=== PATIENT | female | born 1990 | race Caucasian/White ===

== ENCOUNTER 2017-12-26 12:19 | Emergency (ER) | payer MEDICAID, SELFPAY ==
[2017-12-26] VITALS (9 sets, daily range): BP systolic 96–129; BP diastolic 53–75; PULSE 60–99; RESP 12–18; TEMP 37.1; O2SAT 99–100; BMI 25.9
--- NOTE | 2017-12-26 12:44 | EKG12_ITS ---
Test Reason : MENTAL ILLNESS Blood Pressure : / mmHG Vent. Rate : 059 BPM Atrial Rate : 059 BPM P-R Int : 118 ms QRS Dur : 082 ms QT Int : 420 ms P-R-T Axes : 065 072 054 degrees QTc Int : 415 ms Sinus bradycardia with Premature atrial complexes Otherwise normal ECG Confirmed by GERA LAO, AALIYAH ([id number]), editor book TODD KENNEY ([id number]) on 12/28/2017 1:10:56 PM Referred By: SHAW Confirmed By:AALIYAH BOSS MD
--- NOTE | 2017-12-26 12:46 | ED.VISSUMM ---
- ER Visit Summary Date of Service: 12/26/17 Chief Complaint: Suicidal threats History of Present Illness: The patient is a 27 F who was brought in by the [facility] deputy for suicidal threats. The patient has a history of methamphetamine use. She denies any psychiatric history. Her last use was about 4 5 days ago. She has had increasing arguments with her family. Last night she told her boyfriend that she was going to slit her wrists. The [facility] deputy was notified today and pink slipped her. Physical Examination: Afebrile and vital signs unremarkable. Patient is mildly agitated and tearful. Heart regular. Lungs clear. Skin normal in color but she does have some linear abrasions to her bilateral forearms, worse on the left. These are very superficial. Test Results: EKG, labs, tox screen, alcohol, salicylates, and Tylenol levels pending. Emergency Department Course and Treatment: Patient had suicide precautions while awaiting results. Lab work is all fairly unremarkable. Patient did require 1 dose of Ativan by mouth for mild agitation and anxiety. Crisis was contacted. We are awaiting final disposition at the time of this dictation. Treatment Plan: As above Disposition: Transfer pending evaluation by crisis counselor Impression: 1. Suicidal ideation This note was generated with [employer] dictation software. It may contain incorrect words, spelling, and punctuation that were not noted in review of the chart prior to signing ED Disposition - Plan for ED Patient: Chief Complaint: Suicidal Referrals: NOT,DEFINED [NON-STAFF] -
[2017-12-26] MEDS: LORazepam 1 MG Tablet PO (13:04)
[2017-12-26 13:18] LABS: Absolute Lymphocyte Count 2.09 X10^3/ul (0.83-4.51); Absolute Neutrophil Count 4.8 X10^3/uL (2.0-7.7); Basophil# 0.02 X10^3/uL; Basophil% 0.3 % (0-1); Eosinophil# 0.09 X10^3/uL; Eosinophils% 1.2 % (0-5); Hematocrit 40.9 % (37-47); Hemoglobin 14.4 g/dl (12.0-15.0); Lymphocyte # 2.09 X10^3/ul (4.0); Mean Corp Hgb Conc 35.2 g/gl (32-36); Mean Corpuscular Hgb 30.8 pg (27.0-32.0); Mean Corpuscular Volume 87.4 fL (81-99); Mean Platelet Vol. 9.5 fl (6.2-12.0); Monocyte# 0.42 X10^3/uL; Monocyte% 5.6 % (0-10); Neutrophil # 4.82 X10^3/uL (2.7-7.7); Neutrophil % 64.5 % (47-70); POSITIVE COUNT NO; POSITIVE DIFFERENTIAL NO; POSITIVE MORPHOLOGY NO; Platelet Count 369 K/mm3 (150-450); RBC Distribution Width CV 11.8 % (11.6-14.6); RBC Distribution Width SD 37.2 fl (35.1-43.9); Red Blood Count 4.68 M/mm3 (4.2-5.4); White Blood Count 7.5 K/mm3 (4.4-11.0)
[2017-12-26 13:31] LABS: Amphetamine Urine VISTA NEGATIVE (<1000 ng/mL); Barbiturate Urine VISTA NEGATIVE (< 200 ng/mL); Benzodiazepine Urine VISTA NEGATIVE (< 200 ng/mL); Cocaine Urine VISTA NEGATIVE (< 300 ng/mL); Ecstacy Urine VISTA NEGATIVE (< 500 ng/mL); Methadone Urine VISTA NEGATIVE (< 300 ng/mL); PCP Urine VISTA NEGATIVE (< 25 ng/mL); THC Urine VISTA NEGATIVE (< 50 ng/mL); Vista UDS pH Range 6
[2017-12-26 13:40] LABS: AST(SGOT) 18 U/L (15-37); Alanine Aminotransfer ALT/SGPT 17 U/L (13-56); Albumin, Serum 3.8 g/dL (3.2-5.0); Alkaline Phosphatase 67 U/L (45-117); Anion Gap 6 (5-15); BUN 7 mg/dL (7-18); BUN/Creat Ratio 11.5 RATIO (10-20); Calcium,Total 8.8 mg/dL (8.5-10.1); Chloride 107 mmol/L (98-107); Creatinine, Serum 0.61 mg/dL (0.55-1.02); EST Glomerular Filtration Rate 127 mL/min (>60); Est Glom Filt Rate - Afr Amer 154 mL/min (>60); Estimated Creatinine Clearance 126.86 ml/min; Globulin 3.7 g/dL (2.2-4.2); Glucose 85 mg/dL (74-106); Potassium 3.8 mmol/L (3.5-5.1); Protein, Total 7.5 g/dL (6.4-8.2); Sodium Level 143 mmol/L (136-145)
[2017-12-26 14:31] LABS: Alcohol, Blood (Medical)-Serum < 3.0 mg/dL
[2017-12-26 15:06] LABS: Mucous, Urine 0 SEEN /hpf (<or=2+); Red Blood Cells-Urine 0 SEEN /hpf (0-5); White Blood Cells 0 SEEN /hpf (0-5)
[2017-12-26 15:08] LABS: Color, Urine Yellow (Yellow); Glucose, Dipstick Normal (Normal); Ketone-Dipstick Negative (Negative); Leukocyte Esterase-Dipstick Negative /ul (Negative); Nitrite-Dipstick Negative (Negative); Occult Blood-Urine Negative /ul (Negative); Protein-Dipstick 15 mg/dl (Negative); Urine Bilirubin Dipstick Negative (Negative); Urine Clarity Clear (Clear); Urine Urobilinogen Normal (Normal)
[2017-12-26 15:11] LABS: Internal QC Validated? YES +Cl - CLEAR BKGD; Pregnancy, Urine Negative Negative
[2017-12-26 15:14] LABS: Bacteria RARE /hpf (None Seen); Squamous Epithelial Cells - UA 0-5 SEEN /hpf (5-10)
[2017-12-26 15:40] LABS: Acetaminophen (Tylenol) Level < 3.0 ug/mL (10.0-30.0); Salicylate 2.9 mg/dL (2.8-20.0)
--- NOTE | 2017-12-26 17:39 | ED.RN ---
TUAN FERRO ON THE WAIT LIST FOR [facility]
[2017-12-26] MEDS: hydrOXYzine PAM 25 MG Capsule PO (18:15)
--- NOTE | 2017-12-26 19:22 | ED.RN ---
pt evaluated by [facility] crisis counselor. pt is pink slipped to [facility] and is awaiting an accepting drCedric and on waiting list for and available bed. pt aware.
--- NOTE | 2017-12-26 19:24 | ED.RN ---
pt reports having anxiety that her family is unable to come and visit. significant other and family informed that pt can have visitors. this rn sat and talked with pt. tissues given as pt is tearful. pt accepts anxiety medication. snack and beverage given.
[2017-12-27] VITALS (11 sets, daily range): BP systolic 96–138; BP diastolic 56–77; PULSE 61–74; RESP 14–18; TEMP 36.8; O2SAT 96–100
[2017-12-27] MEDS: Zolpidem Tartrate 5 MG Tablet PO (02:01)
--- NOTE | 2017-12-27 09:10 | NURSING ---
CALLED [facility]IS[facility], WAITING ON A BED.
--- NOTE | 2017-12-27 09:50 | NURSING ---
[place] [id number] UN[address] REPORT [phone] PETRA RIVAS
--- NOTE | 2017-12-27 10:12 | NURSING ---
CALLED [facility], ETA 1 HR
== END 2017-12-27 11:24 ==
PROVIDERS: Emergency Provider Emergency Medicine
DX: R45.851 Suicidal ideations (principal); R45.1 Restlessness and agitation; F41.9 Anxiety disorder, unspecified; S50.812A Abrasion of left forearm, initial encounter; S50.811A Abrasion of right forearm, initial encounter; X58.XXXA Exposure to other specified factors, initial encounter; Y93.9 Activity, unspecified; Y92.9 Unspecified place or not applicable; F15.90 Other stimulant use, unspecified, uncomplicated; F17.210 Nicotine dependence, cigarettes, uncomplicated
CPT/HCPCS: 80053; 80307; 80320; 80329; 81001; 81025; 85025; 93005; 99284; G0480

== ENCOUNTER 2018-01-20 15:01 | Emergency (ER) | payer MEDICAID, SELFPAY ==
[2018-01-20 15:02] VITALS: BP 118/67; PULSE 101; RESP 16; TEMP 36.7; O2SAT 98; BMI 26.6
[2018-01-20 15:37] LABS: Absolute Neutrophil Count 6.9 X10^3/uL (2.0-7.7); Basophil# 0.03 X10^3/uL; Basophil% 0.3 % (0-1); Eosinophil# 0.13 X10^3/uL; Eosinophils% 1.3 % (0-5); Hematocrit 47.2 % (37-47); Hemoglobin 16.2 g/dl (12.0-15.0); Lymphocyte % 26.1 % (19-41); Mean Corp Hgb Conc 34.3 g/gl (32-36); Mean Corpuscular Hgb 30.6 pg (27.0-32.0); Mean Corpuscular Volume 89.2 fL (81-99); Mean Platelet Vol. 9.7 fl (6.2-12.0); Monocyte# 0.56 X10^3/uL; Monocyte% 5.4 % (0-10); Neutrophil # 6.92 X10^3/uL (2.7-7.7); Neutrophil % 66.7 % (47-70); Platelet Count 334 K/mm3 (150-450); RBC Distribution Width CV 12.4 % (11.6-14.6); RBC Distribution Width SD 40.8 fl (35.1-43.9); Red Blood Count 5.29 M/mm3 (4.2-5.4); White Blood Count 10.4 K/mm3 (4.4-11.0)
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
[2018-01-20 15:40] LABS: POSITIVE COUNT NO; POSITIVE DIFFERENTIAL NO; POSITIVE MORPHOLOGY NO
[2018-01-20 15:50] LABS: ALB/GLOB Ratio 1.2 RATIO (0.9-2.4); AST(SGOT) 12 U/L (15-37); Alanine Aminotransfer ALT/SGPT 14 U/L (13-56); Albumin, Serum 4.4 g/dL (3.2-5.0); Alkaline Phosphatase 77 U/L (45-117); Anion Gap 4 (5-15); BUN 16 mg/dL (7-18); BUN/Creat Ratio 20.9 RATIO (10-20); Calcium,Total 9.1 mg/dL (8.5-10.1); Chloride 105 mmol/L (98-107); Creatinine, Serum 0.76 mg/dL (0.55-1.02); EST Glomerular Filtration Rate 98 mL/min (>60); Est Glom Filt Rate - Afr Amer 118 mL/min (>60); Estimated Creatinine Clearance 101.82 ml/min; Globulin 3.6 g/dL (2.2-4.2); Glucose 51 mg/dL (74-106); Potassium 4.1 mmol/L (3.5-5.1); Sodium Level 140 mmol/L (136-145)
[2018-01-20 15:56] LABS: Alcohol, Blood (Medical)-Serum < 3.0 mg/dL
[2018-01-20 15:58] LABS: Amphetamine Urine VISTA POSITIVE (<1000 ng/mL); Barbiturate Urine VISTA NEGATIVE (< 200 ng/mL); Benzodiazepine Urine VISTA NEGATIVE (< 200 ng/mL); Cocaine Urine VISTA NEGATIVE (< 300 ng/mL); Ecstacy Urine VISTA NEGATIVE (< 500 ng/mL); Methadone Urine VISTA NEGATIVE (< 300 ng/mL); PCP Urine VISTA NEGATIVE (< 25 ng/mL); THC Urine VISTA NEGATIVE (< 50 ng/mL); Vista UDS pH Range 5
[2018-01-20 16:22] LABS: Pregnancy, Serum, hCG Quali. NEGATIVE Negative (0-9 Nonpreg)
[2018-01-20 16:45] VITALS: BP 106/63; PULSE 83; RESP 16; O2SAT 97
--- NOTE | 2018-01-20 16:51 | ED.DEP ---
ED Disposition - Plan for ED Patient: Disposition: Home or Assisted Living Chief Complaint: Mental Health Instructions: ED Drug Abuse General Referrals: Counseling,Center [GROUP OF PHYSICIANS] - Additional Instructions: Follow-up with counseling center. Strongly consider getting drug counseling.
[2018-01-20] MEDS: LORazepam 1 MG Tablet PO (17:08)
[2018-01-20 17:09] VITALS: PULSE 89; RESP 15; O2SAT 96
[2018-01-20 23:07] VITALS: BP 114/83; PULSE 78; O2SAT 99
[2018-01-21] VITALS: RESP 16
[2018-01-21 01:32] VITALS: BP 114/82; PULSE 92; RESP 18; O2SAT 99
== END 2018-01-21 04:37 | disposition home or self-care (01) ==
PROVIDERS: Emergency Provider Emergency Medicine
DX: R45.1 Restlessness and agitation (principal); Z87.898 Personal history of other specified conditions; F99 Mental disorder, not otherwise specified; F41.9 Anxiety disorder, unspecified; F15.90 Other stimulant use, unspecified, uncomplicated; Z79.899 Other long term (current) drug therapy; Z72.0 Tobacco use
CPT/HCPCS: 80053; 80307; 80320; 84703; 85025; 99284; G0480

== ENCOUNTER → 2020-12-06 12:07 | Outpatient (CLI) | payer MEDICAID, SELFPAY ==
[2020-12-05 17:36] VITALS: BMI 39.4
[2020-12-06 14:55] LABS: Absolute Lymphocyte Count 3.27 X10^3/uL (0.83-4.51); Absolute Neutrophil Count 5.2 X10^3/uL (2.0-7.7); Basophil# 0.03 X10^3/uL; Basophil% 0.3 % (0-1); Eosinophil# 0.24 X10^3/uL; Eosinophils% 2.6 % (0-5); Hematocrit 44.7 % (37-47); Hemoglobin 14.2 g/dL (12.0-15.0); Lymphocyte # 3.27 X10^3/ul (4.0); Lymphocyte % 35.5 % (19-41); Mean Corp Hgb Conc 31.8 g/dL (32-36); Mean Corpuscular Volume 91.2 fL (81-99); Mean Platelet Vol. 10.5 fl (6.2-12.0); Monocyte# 0.47 X10^3/uL; Monocyte% 5.1 % (0-10); NRBC Flagged by Analyzer 0 % (0-5); Neutrophil # 5.17 X10^3/uL (2.7-7.7); Neutrophil % 56.3 % (47-70); Platelet Count 416 K/mm3 (150-450); RBC Distribution Width CV 11.9 % (11.6-14.6); RBC Distribution Width SD 39.8 fl (35.1-43.9); White Blood Count 9.2 K/mm3 (4.4-11.0)
[2020-12-06 15:00] LABS: Internal QC Validated? YES +Cl - CLEAR BKGD; Pregnancy, Serum, hCG Quali. NEGATIVE Negative
[2020-12-06 15:24] LABS: AST(SGOT) 19 U/L (15-37); Alanine Aminotransfer ALT/SGPT 22 U/L (13-56); Albumin, Serum 3.9 g/dL (3.2-5.0); Alkaline Phosphatase 90 U/L (45-117); Anion Gap 6 (5-15); BUN 11 mg/dL (7-18); BUN/Creat Ratio 13.4 RATIO (10-20); Calcium,Total 9.1 mg/dL (8.5-10.1); Chloride 104 mmol/L (98-107); Creatinine, Serum 0.82 mg/dL (0.55-1.02); EST Glomerular Filtration Rate 88 mL/min (>60); Est Glom Filt Rate - Afr Amer 107 mL/min (>60); Globulin 3.8 g/dL (2.2-4.2); Glucose 85 mg/dL (74-106); Potassium 4.4 mmol/L (3.5-5.1); Protein, Total 7.7 g/dL (6.4-8.2); Sodium Level 140 mmol/L (136-145); T4 Free Direct 1.01 ng/dL (0.76-1.46); Thyroid Stim Hormone (TSH) 2.04 uIU/mL (0.358-3.74)
[2020-12-06 16:02] LABS: HIV - WCH Non-Reactive (Nonreactive); Hepatitis B Surface Antigen Non-Reactive (Nonreactive)
[2020-12-06 16:08] LABS: Hepatitis C Antibody Preliminary Reactive (Nonreactive)
[2020-12-06 18:34] LABS: Chlamydia Trachomatis by PCR Negative (Negative); Neisserai gonorrhoeae by PCR Negative (Negative); Probe Check PASS; Sample Adequacy Control PASS; Specimen Processing Control PASS
== END ==
PROVIDERS: PCP Internal Medicine; Referring Provider Internal Medicine; Visit Provider Internal Medicine
DX: B19.20 Unspecified viral hepatitis C without hepatic coma (principal); Z11.3 Encounter for screening for infections with a predominantly sexual mode of transmission; Z13.29 Encounter for screening for other suspected endocrine disorder; N93.9 Abnormal uterine and vaginal bleeding, unspecified
CPT/HCPCS: 36415; 80053; 84439; 84443; 84703; 85025; 86703; 86803; 87340; 87491; 87521; 87591

== ENCOUNTER 2022-01-29 10:37 | Emergency (ER) | payer MEDICAID, SELFPAY ==
[2022-01-29 10:39] VITALS: BP 105/60; PULSE 64; RESP 18; TEMP 36.4; O2SAT 99; BMI 29.2
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
[2022-01-29] MEDS: Azithromycin 250 MG Tablet 2000 MG PO (12:02)
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
--- NOTE | 2022-01-29 12:32 | ED.RN ---
PT AWARE SHE HAS BEEN REFERRED TO [facility] FOR A SANE EXAM.
[2022-01-29 13:57] LABS: Chlamydia Trachomatis by PCR POSITIVE (Negative); Neisserai gonorrhoeae by PCR Positive (Negative); Probe Check PASS
== END 2022-01-29 12:34 | disposition home or self-care (01) ==
LOC: ED 11:31
PROVIDERS: Emergency Provider Emergency Medicine; Visit Provider Emergency Medicine
DX: N89.8 Other specified noninflammatory disorders of vagina (principal); F19.10 Other psychoactive substance abuse, uncomplicated; Z11.3 Encounter for screening for infections with a predominantly sexual mode of transmission; B19.20 Unspecified viral hepatitis C without hepatic coma; M54.50 Low back pain, unspecified; T76.21XA Adult sexual abuse, suspected, initial encounter; F17.210 Nicotine dependence, cigarettes, uncomplicated
CPT/HCPCS: 87491; 87591; 99283

== ENCOUNTER 2022-12-23 10:03 | Emergency (ER) | payer MEDICAID, SELFPAY ==
[2022-12-23 10:04] VITALS: BP 134/96; PULSE 87; RESP 14; TEMP 36.1; O2SAT 96; BMI 39.7
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
[2022-12-23 11:16] LABS: Absolute Lymphocyte Count 2.54 X10^3/uL (0.83-4.51); Absolute Neutrophil Count 3.8 X10^3/uL (2.0-7.7); Basophil# 0.03 X10^3/uL; Basophil% 0.4 % (0-1); Eosinophil# 0.21 X10^3/uL; Eosinophils% 2.8 % (0-5); Hematocrit 34.1 % (37-47); Hemoglobin 12.1 g/dL (12.0-15.0); Lymphocyte # 2.54 X10^3/ul (0.83-4.51); Lymphocyte % 33.6 % (19-41); Mean Corp Hgb Conc 35.5 g/dL (32-36); Mean Corpuscular Hgb 31.5 pg (27.0-32.0); Mean Corpuscular Volume 88.8 fL (81-99); Mean Platelet Vol. 9.8 fl (6.2-12.0); Monocyte# 0.93 X10^3/uL; Monocyte% 12.3 % (0-10); NRBC Flagged by Analyzer 0 % (0-5); Neutrophil # 3.82 X10^3/uL (2.7-7.7); Neutrophil % 50.6 % (47-70); Platelet Count 350 K/mm3 (150-450); RBC Distribution Width CV 11.7 % (11.6-14.6); RBC Distribution Width SD 37.2 fl (35.1-43.9); Red Blood Count 3.84 M/mm3 (4.2-5.4); White Blood Count 7.6 K/mm3 (4.4-11.0)
[2022-12-23 11:34] LABS: Internal QC Validated? YES +Cl - CLEAR BKGD; Pregnancy, Serum, hCG Quali. NEGATIVE Negative
[2022-12-23 11:42] LABS: Alcohol, Blood (Medical)-Serum < 3.0 mg/dL
--- NOTE | 2022-12-23 11:52 | CM.ED ---
Addendum entered by Ernestine Benson 12/23/22 17:08: JEFERSON met with patient, [facility] Experimental Physicist, Josephine, and SANE nurse Hillary. Patient was awake briefly but has been in and out of sleep. Josephine updated SW that the patient has been accepted to [facility] and will have assistance by their staff to be connected to other resources for mental health and AOD as needed. Patient continues to not want police involvement. No concerns voiced by Josephine contemporary or modern dancer regarding suicide or homicide or patient's general behavior. JEFERSON updated MD Kern of plan for discharge to [facility]. MD in agreement with plan, mental health evaluation not needed at this time. Ernestine Benson GRINDER SETUP OPERATOR, MEMBER SERVICES REPRESENTATIVE Original Note: Social Work Note Referral Source: MD Kern Referral reason: concerns with AOD/MH MD Kern met with SW and reviewed current symptoms and concerns explaining the patient is homeless, using substances and acting bizarre. reports patient is repetitive and has staff from [facility] present, however, they did not disclose anything and continued to encourage the patient to talk to the MD about her concerns. SW to follow up. SW met with patient and patient's guest. CARAMEL CANDY MAKER HELPER at bedside with patient and one of patient's guests assisting the patient with deep breathing. Patient's guests are recovery coaches with Palomo, Anny and Alireza. SW met with Anny (Alireza assisting with breathing exercises) and inquired about recent events. Anny reports having an DELIA signed from the patient to talk with hospital staff. Anny explained the patient came to [facility] for breakfast as she is currently homeless. When patient arrived, she disclosed to Anny she was concerned about track betancourt on her body, explaining she wasn't shooting she was using subs. Patient had also disclosed some concerns regarding bruises on her ankles and inner thighs and was questioning what could have happened to her. Patient states she is unable to remember majority of the events that occurred within the last two weeks. 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 SW then spoke with patient to inquire about her desire to have a SANE nurse evaluation, patient states yes. SW inquired about patient's interest in talking with police, patient declined. Patient was very restless and kept her eyes closed during interaction with SW and reports not wanting to talk about anything else at this time. [facility] Josephine, arrived and at patient's bed side as well. SW updated manager restaurant Alyssa and MD Kern patient is requesting SANE nurse but declined police involvement. Plan: DAYSI Bryant contacting SANE nurses to determine who is available to complete exam. Ernestine Benson GRINDER SETUP OPERATOR, JEN
[2022-12-23 11:58] LABS: Red Blood Cells-Urine 0 SEEN /hpf (0-5)
[2022-12-23 11:59] LABS: Color, Urine Yellow (Yellow); Glucose, Dipstick Normal (Normal); Ketone-Dipstick 50 mg/dl (Negative); Leukocyte Esterase-Dipstick 25 /ul (Negative); Nitrite-Dipstick Positive (Negative); Occult Blood-Urine 50 /ul (Negative); Protein-Dipstick 30 mg/dl (Negative); Urine Bilirubin Dipstick 1 mg/dL (Negative); Urine Clarity Sl. Cloudy (Clear); Urine Urobilinogen 4 mg/dl (Normal)
[2022-12-23 12:05] LABS: Bacteria 1+ /hpf (None Seen); Mucous, Urine 1+ /hpf (<or=2+); Squamous Epithelial Cells - UA 0-5 SEEN /hpf (5-10); White Blood Cells 0-5 SEEN /hpf (0-5)
[2022-12-23 12:20] LABS: Amphetamine Urine VISTA POSITIVE (<1000 ng/mL); Barbiturate Urine VISTA NEGATIVE (< 200 ng/mL); Benzodiazepine Urine VISTA NEGATIVE (< 200 ng/mL); Cocaine Urine VISTA NEGATIVE (< 300 ng/mL); Ecstacy Urine VISTA POSITIVE (< 500 ng/mL); Methadone Urine VISTA NEGATIVE (< 300 ng/mL); PCP Urine VISTA NEGATIVE (< 25 ng/mL); THC Urine VISTA NEGATIVE (< 50 ng/mL); Vista UDS pH Range 6
== END 2022-12-23 21:02 | disposition home or self-care (01) ==
PROVIDERS: Emergency Provider Student in an Organized Health Care Education/Training Program; Visit Provider Student in an Organized Health Care Education/Training Program
DX: F20.9 Schizophrenia, unspecified (principal); F15.10 Other stimulant abuse, uncomplicated; F16.10 Hallucinogen abuse, uncomplicated; B18.2 Chronic viral hepatitis C; Z59.00 Homelessness unspecified; N30.90 Cystitis, unspecified without hematuria; F17.210 Nicotine dependence, cigarettes, uncomplicated; T76.21XA Adult sexual abuse, suspected, initial encounter; T76.11XA Adult physical abuse, suspected, initial encounter
CPT/HCPCS: 80307; 81001; 82077; 84703; 85025; 87428; 99283

== ENCOUNTER 2023-09-07 15:41 | Emergency (ER) | payer MEDICAID, SELFPAY ==
[2023-09-07 15:42] VITALS: BP 130/77; PULSE 73; RESP 14; TEMP 36.1; O2SAT 100; BMI 40.2
--- NOTE | 2023-09-07 16:01 | CT_ITS ---
EXAM: CT ABDOMEN AND PELVIS WITH INTRAVENOUS CONTRAST CLINICAL INDICATION: Abdominal pain TECHNIQUE: Helically acquired images were obtained of the abdomen and pelvis with intravenous contrast. This CT exam was performed using one or more of the following dose reduction techniques: automated exposure control, adjustment of the mA and/or kV according to patient size, and/or use of iterative reconstruction technique. CONTRAST: IV 100mL Isovue-370 COMPARISON: No relevant prior studies available. FINDINGS: LOWER THORAX: Unremarkable. Lung bases are clear. No cardiomegaly. No significant pericardial effusion. ABDOMEN: LIVER: Unremarkable. Homogeneous. No focal mass. GALLBLADDER AND BILE DUCTS: Unremarkable. No calcified gallstones. No gallbladder distention or wall edema. No intra- or extrahepatic biliary ductal dilation. PANCREAS: Unremarkable. No focal cystic or solid mass. SPLEEN: Unremarkable. Normal size without focal cystic or solid mass. ADRENALS: Unremarkable. No nodules. KIDNEYS AND URETERS: Unremarkable. Normal renal size and position. No hydronephrosis. STOMACH AND BOWEL: Unremarkable. No stomach or bowel distention. No focal inflammatory change. PELVIS: APPENDIX: No evidence of acute appendicitis. BLADDER: Unremarkable. REPRODUCTIVE: Fluid density mass in the right pelvis that measures 7.1 x 5.8 x 7.4 cm likely represents an ovarian cyst. ABDOMEN and PELVIS: INTRAPERITONEAL SPACE: Unremarkable. No ascites or other fluid collection. No free air. BONES/JOINTS: Unremarkable. No suspicious lytic or blastic abnormality. SOFT TISSUES: Unremarkable. No discrete abdominal or pelvic wall hernia. VASCULATURE: Unremarkable. Abdominal aorta is non-dilated. LYMPH NODES: Unremarkable. No enlarged lymph nodes. CT/Abdomen/Pelvis W IV Cont ONLY IMPRESSION: Fluid density mass in the right hemipelvis which may represent a right ovarian cyst. If indicated further evaluation with ultrasound may be beneficial. No other acute abnormalities are identified. Electronically Signed: Damon Arcos MD at 17:29 EST ,
--- NOTE | 2023-09-07 16:09 | EX.ED.DYSGE1 ---
HPI <FARHAN Ramirez - Last Filed: 09/07/23 18:38> History of Present Illness Chief Complaint: Abd Pain Narrative Narrative: Patient presenting today due to worsening cramping and intermittent abdominal pain across her lower abdomen that she has had since Wednesday. She reports that she has had some nausea without any vomiting. She reports that she had loose stool this morning but otherwise no diarrhea. She denies any fever, chills, urinary symptoms, melena, and hematochezia. Previous abdominal surgeries include 3 prior C-sections. She denies a PMH of any chronic health conditions. PFSH <FARHAN Ramirez - Last Filed: 09/07/23 18:38> PFSH Medical History Drug abuse Headache, migraine Hepatitis C Home Medications buprenorphine 8.6 mg-naloxone 2.1 mg sublingual tablet (Zubsolv) 1 tab sublingual DAILY 12/05/20 [History Last Taken Unknown] omeprazole 40 mg capsule,delayed release 40 mg PO DAILY #90 caps 12/05/20 [Rx Last Taken Unknown] sulfamethoxazole 800 mg-trimethoprim 160 mg tablet (Bactrim DS) 1 tab PO DAILY #10 tabs 12/23/22 [Rx Last Taken Unknown] escitalopram oxalate 20 mg tablet 20 mg PO QHS 09/07/23 [History Last Taken Unknown] naltrexone microspheres 380 mg intramuscular suspension,extended release (Vivitrol) 380 mg IM Q28D 09/07/23 [History Last Taken Unknown] prazosin 1 mg capsule 1 mg PO QHS 09/07/23 [History Last Taken Unknown] trazodone 100 mg tablet 100 mg PO QHS PRN sleep 09/07/23 [History Last Taken Unknown] Allergy/AdvReac Type Severity Reaction Status Date / Time cephalexin [From Keflex] Allergy Hives Verified 09/07/23 15:42 loratadine [From Claritin] Allergy Unknown Verified 09/07/23 15:42 Family History Other Alcoholism Anxiety Arthritis CVA (cerebral vascular accident) Cervical cancer Diabetes Heart disease High cholesterol Hypertension Kidney disease Myocardial infarction Osteoporosis Ovarian cancer Suicide attempt blood clots Surgical History History of History of tonsillectomy Social History Smoking Status: Heavy Smoker (>10/day) alcohol intake: never substance use type: former substance user what type of physical activity do you participate in: none ROS <FARHAN Ramirez - Last Filed: 09/07/23 18:38> ROS ED Constitutional Constitutional ED: Denies chills or fever(s) Cardiovascular Cardiovascular: Denies chest pain Respiratory/Chest Respiratory/Chest: Denies cough or dyspnea Gastrointestinal Gastrointestinal: Reports abdominal pain and nausea; Denies constipation, diarrhea, melena or vomiting Genitourinary Genitourinary ED: Denies dysuria, hematuria or urinary urgency Musculoskeletal Musculoskeletal: Denies arthralgias or myalgias Integumentary Denies rash Neurologic Neurologic: Denies weakness EXAM <FARHAN Ramirez - Last Filed: 09/07/23 18:38> Physical Exam Const Vital Signs: 09/07/23 15:42 09/07/23 17:41 Temperature 96.9 F L Temperature Source Temporal Pulse Rate 73 65 Respiratory Rate 14 16 Blood Pressure 130/77 H Blood Pressure Mean 94 Pulse Ox 100 Oxygen Delivery Method Room Air Room Air Positive well nourished, well developed and no apparent distress General Appearance ED: well developed HEENT Reports normocephalic and head/scalp atraumatic Mouth ED: Yes moist mucous membranes normal Eyes PERRL and EOMs intact bilaterally Neck full ROM and supple Chest Wall inspection of chest normal Resp normal respiratory effort and clear to auscultation bilaterally Cardio regular rate and regular rhythm GI soft to palpation, non-distended and no masses GI Narrative: pain to palpation across the lower abdomen without any rigidity, guarding, or peritoneal signs. Negative Almazan sign. Negative Rovsing sign. Back/Spine normal ROM and normal to inspection Extremity normal to inspection and full ROM Neuro oriented x3, CN's II-XII intact bilaterally, moves all extremities, no focal motor deficits and no sensory deficits noted Sensorium / Orientation: awake and alert Psych mental status grossly normal and thought process normal Skin no rashes or lesions noted and no wounds <Dr. Young Card DO - Last Filed: 09/07/23 18:13> Physical Exam Const Vital Signs: 09/07/23 15:42 09/07/23 17:41 Temperature 96.9 F L Temperature Source Temporal Pulse Rate 73 65 Respiratory Rate 14 16 Blood Pressure 130/77 H Blood Pressure Mean 94 Pulse Ox 100 Oxygen Delivery Method Room Air Room Air [facility] <FARHAN Ramirez - Last Filed: 09/07/23 18:38> [facility] Narrative Medical decision making narrative: Patient presenting today due to pain across her lower abdomen that she has had since Wednesday. She had loose stool this morning but has not been having diarrhea. No urinary symptoms. She is well-appearing and in no acute distress. Patient did climb over the rails on the examination bed to sit on the chair and plug in her phone. Patient did bring in a coffee and reports that she has been drinking this without difficulty. She was encouraged to discontinue drinking the coffee so that we can obtain a workup on her. Labs to be obtained to rule out leukocytosis, anemia, electrolyte abnormality, BIANCA, and UTI. CT of the abdomen and possibly obtained to rule out pneumonia, diverticulitis, bowel obstruction, kidney stone, ovarian cyst, and other abdominal etiology. She will be given IV fluids, Zofran, and Toradol. She does have elevated WBC 13.4 that is nonspecific, potassium is 3.1, otherwise labs are unremarkable. She was given potassium replacement. CT scan shows a right ovarian cyst but otherwise is unremarkable. Low suspicion for ovarian torsion. Patient has been advised of her findings. I have given her a referral for a PCP and BRINE PLANT OPERATOR as she does not have either. She is requesting to be tested for gonorrhea/chlamydia. She denies having any symptoms such as vaginal discharge, urinary symptoms, or vaginal pain. She will be tested, she will not be treated prophylactically. On reexamination she reports improvement of her symptoms, she is tolerating PO fluids. She will be discharged home in stable condition and is comfortable with plan. She is to follow-up with PCP. Lab Data Attestation: I reviewed the patient's lab results. Labs: Laboratory Results - last 24 hr 09/07/23 09/07/23 16:15 17:18 WBC 13.4 H RBC 4.37 Hgb 13.4 Hct 39.4 MCV 90.2 MCH 30.7 MCHC 34.0 RDW Std Deviation 41.3 RDW Coeff of Maty 12.6 Plt Count 308 MPV 9.5 Immature Gran % (Auto) 0.400 Neut % (Auto) 77.0 H Lymph % (Auto) 16.2 L [place] % (Auto) 5.2 Eos % (Auto) 1.0 Baso % (Auto) 0.2 Absolute Neuts (auto) 10.3 H Absolute Lymphs (auto) 2.16 Nucleated RBC % 0 Sodium 139 Potassium 3.1 L Chloride 107 Carbon Dioxide 26.0 Anion Gap 6 BUN 6 L Creatinine 0.70 Estim Creat Clear Calc 105.74 Est GFR (MDRD) Af Amer 127 Est GFR (MDRD) Non-Af 105 BUN/Creatinine Ratio 8.6 L Glucose 124 H Calcium 8.5 Total Bilirubin 0.60 AST 13 L ALT 21 Alkaline Phosphatase 73 Total Protein 7.4 Albumin 3.6 Globulin 3.8 Albumin/Globulin Ratio 0.9 Lipase 21 Serum , Qual NEGATIVE Urine Color Yellow Urine Clarity Clear Urine pH 6.5 Ur Specific [place] 1.010 Urine Protein 15 H Urine Glucose (UA) Normal Urine Ketones Negative Urine Occult Blood 10 H Urine Nitrite Negative Urine Bilirubin Negative Urine Urobilinogen Normal Ur Leukocyte Esterase 100 H Urine RBC 0-5 SEEN Urine WBC 0-5 SEEN Ur Squamous Epith Cells 5-10 SEEN Urine Bacteria 0 SEEN Urine Mucus 0 SEEN Radiography Diagnostic Testing: Clinical Impression(s) from Imaging Studies Abdomen/Pelvis CT 09/07/23 16:01 IMPRESSION: Fluid density mass in the right hemipelvis which may represent a right ovarian cyst. If indicated further evaluation with ultrasound may be beneficial. No other acute abnormalities are identified. Electronically Signed: Damon Arcos MD at 17:29 EST , <Dr. Young Card, DO - Last Filed: 09/07/23 18:13> [facility] Lab Data Labs: Laboratory Results - last 24 hr 09/07/23 09/07/23 16:15 17:18 WBC 13.4 H RBC 4.37 Hgb 13.4 Hct 39.4 MCV 90.2 MCH 30.7 MCHC 34.0 RDW Std Deviation 41.3 RDW Coeff of Maty 12.6 Plt Count 308 MPV 9.5 Immature Gran % (Auto) 0.400 Neut % (Auto) 77.0 H Lymph % (Auto) 16.2 L [place] % (Auto) 5.2 Eos % (Auto) 1.0 Baso % (Auto) 0.2 Absolute Neuts (auto) 10.3 H Absolute Lymphs (auto) 2.16 Nucleated RBC % 0 Sodium 139 Potassium 3.1 L Chloride 107 Carbon Dioxide 26.0 Anion Gap 6 BUN 6 L Creatinine 0.70 Estim Creat Clear Calc 105.74 Est GFR (MDRD) Af Amer 127 Est GFR (MDRD) Non-Af 105 BUN/Creatinine Ratio 8.6 L Glucose 124 H Calcium 8.5 Total Bilirubin 0.60 AST 13 L ALT 21 Alkaline Phosphatase 73 Total Protein 7.4 Albumin 3.6 Globulin 3.8 Albumin/Globulin Ratio 0.9 Lipase 21 Serum , Qual NEGATIVE Urine Color Yellow Urine Clarity Clear Urine pH 6.5 Ur Specific [place] 1.010 Urine Protein 15 H Urine Glucose (UA) Normal Urine Ketones Negative Urine Occult Blood 10 H Urine Nitrite Negative Urine Bilirubin Negative Urine Urobilinogen Normal Ur Leukocyte Esterase 100 H Urine RBC 0-5 SEEN Urine WBC 0-5 SEEN Ur Squamous Epith Cells 5-10 SEEN Urine Bacteria 0 SEEN Urine Mucus 0 SEEN Radiography Diagnostic Testing: Clinical Impression(s) from Imaging Studies Abdomen/Pelvis CT 09/07/23 16:01 IMPRESSION: Fluid density mass in the right hemipelvis which may represent a right ovarian cyst. If indicated further evaluation with ultrasound may be beneficial. No other acute abnormalities are identified. Electronically Signed: Damon Arcos MD at 17:29 EST , Treatment and Re-Evaluation :: I have personally performed a face to face assessment of the patient and have reviewed the SHAQUILLE Note. I performed a substantive portion of the visit including all aspects of the following. My quintero findings include: History: Patient presents with abdominal pain that has been getting worse over the past 2 days. Patient states it is gradually getting worse. Patient describes it as cramping. Patient dates it is mainly over the lower abdomen. Patient states it is worse with eating. Patient admits to some nausea for the past 2 weeks. Patient denies any vomiting. Patient admits to some diarrhea. Patient states her stools have been slightly darker than usual. Patient denies any hematochezia. Patient denies any dysuria, frequency, or hematuria. Exam: Vital signs are stable. Patient is afebrile. Patient is in no acute distress. Oral mucosa is pink and moist. Neck is supple. Trachea is midline. There is no JVD. Heart was regular rate and rhythm. Lungs are clear and equal bilaterally. Abdomen is soft. Bowel sounds are normal. There is lower abdominal tenderness. There is no rebound or guarding noted. Cranial nerves II through XII are intact. There are no focal motor or sensory deficits noted. Medical Decision Making: Differential diagnosis includes urinary tract infection, pyelonephritis, bowel obstruction, perforation, ovarian cyst, gastroenteritis, and pancreatitis. CBC will be obtained to assess for leukocytosis and anemia. Comprehensive metabolic profile will be obtained to assess for hepatic function, renal function, and electrolyte abnormality. Lipase will be obtained to assess for pancreatitis. Serum hCG will be obtained to assess for . Urinalysis will be obtained to assess for urinary tract infection and hematuria. GC and Chlamydia PCR will be obtained to assess for GC and chlamydia infection. CT scan of the abdomen and pelvis will be obtained to assess for bowel obstruction, perforation, ovarian cyst, and ureteral calculus. CBC was reviewed. There is a mild leukocytosis of 13.4. The remainder is within normal limits. Comprehensive metabolic profile was reviewed. There is a mild hypokalemia of 3.1. The remainder is within normal limits. Serum hCG was reviewed and was negative. Lipase was reviewed and was normal at 21. Urinalysis was reviewed. There is no evidence of urinary tract infection or hematuria. CT scan of the abdomen pelvis was obtained. There is a large ovarian cyst on the right. There is no free air or free fluid. There is no evidence of bowel obstruction or perforation. This was interpreted by the radiologist and was also independently reviewed by myself. Patient was advised of her findings. Patient requested GC and Chlamydia testing. This was ordered. Patient is asymptomatic with this. Patient does not need to be treated at this time. Patient was instructed to follow-up with her primary care physician for results of this. Patient was instructed to follow-up in 5 to 7 days for further evaluation. Patient was instructed to drink plenty of fluids. Patient understood and was agreeable with the plan. All questions were answered. Discharge Plan Triage Chief Complaint: Abd Pain ED Midlevel Provider: Lynnette Messina ED Provider: Young Card Dx/Rx/DC Orders Clinical Impression: Ovarian cyst, Abdominal pain, Hypokalemia Instructions: Abdominal Pain, ED Ovarian Cyst Prescriptions: No Action Zubsolv 8.6-2.1 mg tablet, sublingual 1 tab SUBLINGUAL DAILY omeprazole 40 mg capsule,delayed release(DR/EC) 40 mg PO DAILY Qty: 90 1RF sulfamethoxazole-trimethoprim [Bactrim DS] 800-160 mg tablet 1 tab PO DAILY Qty: 10 0RF escitalopram oxalate 20 mg tablet 20 mg PO QHS Patient Comments: Take 1 tablet by mouth at bedtime; does not take daily because dont like the way it makes me feel' trazodone 100 mg tablet 100 mg PO QHS PRN (Reason: sleep) Patient Comments: Take 1 tablet by mouth at bedtime as needed prazosin 1 mg capsule 1 mg PO QHS Patient Comments: Take 1 capsule by mouth at bedtime; only takes periodically Vivitrol 380 mg suspension,extended rel recon 380 mg IM Q28D Stand Alone Forms: ED Work / School Excuse Primary Care Provider: Care Physician,No Primary Referrals: Sam Reinoso MD [Med Staff - Active Staff] - As Needed Bernadette Hampton MD [Med Staff - [facility]] - As Needed Care Physician,No Primary [Primary Care Provider] - Activity Restrictions/Additional Instructions: Follow-up with your PCP, return for any worsening of your symptoms. I have given you a referral for an BRINE PLANT OPERATOR and PCP if you do not have one. Disposition Disposition: Home, Self Care Discharge Date/Time: 09/07/23 18:17
[2023-09-07] MEDS: 0.9% Normal Saline (1000mL) 1,000 ML 1000 ML IV (16:15)
[2023-09-07] MEDS: Ondansetron 4 MG/2 ML Vial IV (16:15)
[2023-09-07] MEDS: Ketorolac 15 MG/ML Vial IV (16:16)
[2023-09-07 16:32] LABS: Absolute Lymphocyte Count 2.16 X10^3/uL (0.83-4.51); Absolute Neutrophil Count 10.3 X10^3/uL (2.0-7.7); Basophil# 0.03 X10^3/uL; Basophil% 0.2 % (0-1); Eosinophil# 0.14 X10^3/uL; Hematocrit 39.4 % (37-47); Hemoglobin 13.4 g/dL (12.0-15.0); Lymphocyte # 2.16 X10^3/ul (0.83-4.51); Lymphocyte % 16.2 % (19-41); Mean Corpuscular Hgb 30.7 pg (27.0-32.0); Mean Corpuscular Volume 90.2 fL (81-99); Mean Platelet Vol. 9.5 fl (6.2-12.0); Monocyte# 0.69 X10^3/uL; Monocyte% 5.2 % (0-10); NRBC Flagged by Analyzer 0 % (0-5); Neutrophil # 10.29 X10^3/uL (2.7-7.7); Platelet Count 308 K/mm3 (150-450); RBC Distribution Width CV 12.6 % (11.6-14.6); RBC Distribution Width SD 41.3 fl (35.1-43.9); Red Blood Count 4.37 M/mm3 (4.2-5.4); White Blood Count 13.4 K/mm3 (4.4-11.0)
[2023-09-07 16:45] LABS: Internal QC Validated? YES +Cl - CLEAR BKGD; Pregnancy, Serum, hCG Quali. NEGATIVE Negative
[2023-09-07 16:51] LABS: ALB/GLOB Ratio 0.9 RATIO (0.9-2.4); AST(SGOT) 13 U/L (15-37); Alanine Aminotransfer ALT/SGPT 21 U/L (13-56); Albumin, Serum 3.6 g/dL (3.2-5.0); Alkaline Phosphatase 73 U/L (45-117); Anion Gap 6 (5-15); BUN 6 mg/dL (7-18); BUN/Creat Ratio 8.6 RATIO (10-20); Calcium,Total 8.5 mg/dL (8.5-10.1); Chloride 107 mmol/L (98-107); EST Glomerular Filtration Rate 105 mL/min (>60); Est Glom Filt Rate - Afr Amer 127 mL/min (>60); Estimated Creatinine Clearance 105.74 ml/min; Globulin 3.8 g/dL (2.2-4.2); Glucose 124 mg/dL (74-106); Lipase 21 U/L (13-75); Potassium 3.1 mmol/L (3.5-5.1); Protein, Total 7.4 g/dL (6.4-8.2); Sodium Level 139 mmol/L (136-145)
[2023-09-07 17:27] LABS: Bacteria 0 SEEN /hpf (None Seen); Mucous, Urine 0 SEEN /hpf (<or=2+)
[2023-09-07 17:31] LABS: Color, Urine Yellow (Yellow); Glucose, Dipstick Normal (Normal); Ketone-Dipstick Negative (Negative); Leukocyte Esterase-Dipstick 100 /ul (Negative); Nitrite-Dipstick Negative (Negative); Occult Blood-Urine 10 /ul (Negative); Protein-Dipstick 15 mg/dl (Negative); Urine Bilirubin Dipstick Negative (Negative); Urine Clarity Clear (Clear); Urine Urobilinogen Normal (Normal); Urine pH 6.5 (5.0 - 8.0)
[2023-09-07 17:40] LABS: Red Blood Cells-Urine 0-5 SEEN /hpf (0-5); Squamous Epithelial Cells - UA 5-10 SEEN /hpf (5-10); White Blood Cells 0-5 SEEN /hpf (0-5)
[2023-09-07 17:41] VITALS: PULSE 65; RESP 16
[2023-09-07] MEDS: Potassium Chloride Oral Tablet 20 MEQ 40 MEQ PO (18:09)
== END 2023-09-07 18:17 | disposition home or self-care (01) ==
PROVIDERS: Physician Assistant; Emergency Provider Emergency Medicine; Referring Provider Emergency Medicine; Visit Provider Emergency Medicine
DX: N83.209 Unspecified ovarian cyst, unspecified side (principal); E87.6 Hypokalemia; F17.200 Nicotine dependence, unspecified, uncomplicated; R10.9 Unspecified abdominal pain; Z11.3 Encounter for screening for infections with a predominantly sexual mode of transmission
CPT/HCPCS: 74177; 80053; 81001; 83690; 84703; 85025; 87491; 87591; 96361; 96374; 96375; 99284; J7030; Q9967; A4216; J2405

== ENCOUNTER → 2024-04-20 | Outpatient (CLI) | payer MEDICAID, SELFPAY ==
[2024-04-20 19:35] LABS: HIV - WCH Non-Reactive (Nonreactive); Hepatitis B Surface Antibody Reactive; Hepatitis B Surface Antigen Non-Reactive (Nonreactive); Hepatitis C Antibody Preliminary Reactive (Nonreactive); Syphilis Antibodies Reactive
[2024-04-22 06:08] LABS: Hepatitis B Core Ab Total Negative (Negative)
[2024-04-25 17:07] LABS: HPV APTIMA, High Risk Negative (Negative)
[2024-04-25 17:17] LABS: HPV Reflexed? YES, CHARGE PATIENT
== END | disposition home or self-care (01) ==
PROVIDERS: Visit Provider Nurse Practitioner Family
DX: Z01.411 Encounter for gynecological examination (general) (routine) with abnormal findings (principal); Z11.51 Encounter for screening for human papillomavirus (HPV); Z11.3 Encounter for screening for infections with a predominantly sexual mode of transmission
CPT/HCPCS: 86703; 86704; 86706; 86780; 86803; 87340; 87522; 87624; 88175; G0145

== ENCOUNTER 2024-11-07 07:42 | Emergency (ER) | payer MEDICAID, SELFPAY ==
[2024-11-07 07:43] VITALS: BP 96/78; PULSE 112; RESP 18; TEMP 38.3; O2SAT 93; BMI 44.6
--- NOTE | 2024-11-07 08:04 | EX.ED.VIS.UR ---
HPI HPI - URI History of Present Illness Chief Complaint: Shortness of Breath Narrative Narrative: 33-year-old female, states she is in recovery, presents with cough, and neck pain when she coughs as well as fever since yesterday. She last took 600 mg of ibuprofen 30 minutes prior to arrival. She states that she has been exposed to COVID recently as well. She became concerned because when she was coughing, she states she had pain radiating up her neck with a cough, and through her eyes as well. She states became frightened so she presents to the emergency department for evaluation. No other exacerbating or alleviating factors. She states she feels short of breath as well. She denies any DVT or PE risk factors. ROS ROS ED ROS Narrative Constitutional: Positive fever, no chills. HEENT: No sore throat. Positive neck pain with coughing. Cardiovascular: No chest pain. No palpitations. No pedal edema. Respiratory: Positive cough, positive shortness of breath. Abdominal: No abdominal pain. No nausea. No vomiting. Genitourinary: No dysuria. No hematuria. Musculoskeletal: Positive myalgias and back. Neurologic: No headaches. No dizziness. No lightheadedness. Skin: No rash. No change in color. Psychiatric: No depression. No anxiety. [facility] Medical History Hepatitis C Headache, migraine Drug abuse Home Medications ?Medication ?Instructions ?Recorded ?Last Taken ?Type buprenorphine 8.6 mg-naloxone 2.1 1 tab sublingual DAILY 12/05/20 Unknown History mg sublingual tablet (Zubsolv) omeprazole 40 mg capsule,delayed 40 mg PO DAILY #90 caps 12/05/20 Unknown Rx release sulfamethoxazole 800 1 tab PO DAILY #10 tabs 12/23/22 Unknown Rx mg-trimethoprim 160 mg tablet (Bactrim DS) escitalopram oxalate 20 mg tablet 20 mg PO QHS 09/07/23 Unknown History naltrexone microspheres 380 mg 380 mg IM Q28D 09/07/23 Unknown History intramuscular suspension,extended release (Vivitrol) prazosin 1 mg capsule 1 mg PO QHS 09/07/23 Unknown History trazodone 100 mg tablet 100 mg PO QHS PRN sleep 09/07/23 Unknown History oseltamivir 75 mg capsule (Tamiflu) 75 mg PO BID 5 days #10 caps 11/07/24 Unknown Rx Allergy/AdvReac Type Severity Reaction Status Date / Time cephalexin (From Keflex) Allergy Hives Verified 11/07/24 07:42 loratadine (From Claritin) Allergy Unknown Verified 11/07/24 07:42 Family History Other Alcoholism Anxiety Arthritis CVA (cerebral vascular accident) Cervical cancer Diabetes Heart disease High cholesterol Hypertension Kidney disease Myocardial infarction Osteoporosis Ovarian cancer Suicide attempt blood clots Surgical History History of tonsillectomy History of Social History Smoking Status: Heavy Smoker (>10/day) alcohol intake: never substance use type: former substance user what type of physical activity do you participate in: none EXAM Physical Exam Narrative Exam Narrative: Temperature 100.9 ?F, nontoxic-appearing. HEENT examination is grossly unremarkable, neck soft and supple without meningismus. Full range of motion without pain. Cardiovascular examination reveals a mild tachycardia. Lungs are clear to auscultation bilaterally, moving a good amount of air, no accessory muscle use, speaking in full sentences. Abdomen soft and nontender. Neurological examination is nonfocal and nonlateralizing. Mild anxiety. Const Vital Signs: 11/07/24 07:42 11/07/24 07:43 11/07/24 08:30 Temperature 100.9 F H Temperature Source Oral Pulse Rate 112 H 76 Respiratory Rate 18 17 Respiratory Effort Normal Respiratory Depth Normal Respiratory Pattern Normal Normal Blood Pressure 96/78 Blood Pressure Mean 84 Pulse Ox 93 Oxygen Delivery Method Room Air Room Air 11/07/24 09:42 11/07/24 10:10 Temperature 98.4 F Temperature Source Pulse Rate 90 64 Respiratory Rate 18 18 Respiratory Effort Respiratory Depth Respiratory Pattern Blood Pressure 126/73 H Blood Pressure Mean 90 Pulse Ox 96 99 Oxygen Delivery Method Room Air MDM MDM MDM Narrative Medical decision making narrative: Differential diagnosis includes but not limited to viral syndrome including COVID versus influenza versus RSV versus pneumonia. I doubt urinary tract infection as her symptoms are all related to upper respiratory infection. Additionally, clinically she does not have meningitis and I have low concern for this. She was given albuterol MDI 4 puffs inhaled. She was not given an antipyretic because she took 600 mg of ibuprofen prior to arrival. I do not feel she requires any laboratory work. Chest x-ray will be obtained to rule out pneumonia and pneumothorax. COVID, influenza, and RSV swab was obtained and reviewed as well. I reviewed her respiratory swab and is positive for influenza A. Chest x-ray in 1 view interpreted by myself independently shows no evidence of consolidation or pneumonia. This point in time, she was written a prescription for Tamiflu and she was dispensed the albuterol inhaler to use 1 to 2 puffs every 4-6 hours as needed for shortness of breath. She will take other [id number] medications for her cough. I do not feel she requires admission. She will continue Tylenol and ibuprofen as needed for fever. Return instructions to the emergency department were reviewed. She requested a note for her drug court today. She was given off work for the next 2 days given her diagnosis of influenza. Disposition is discharged home in stable condition. History & Record Review Discussion w/independent historian: Patient Discharge Plan Triage Chief Complaint: Shortness of Breath ED Provider: Curtis Bishop Dx/Rx/DC Orders Clinical Impression: Influenza A, Viral syndrome Instructions: ED Influenza (Adult), ED Viral Syndrome (Adult) Prescriptions: New oseltamivir [Tamiflu] 75 mg capsule 75 mg PO BID 5 Days Qty: 10 0RF No Action Zubsolv 8.6-2.1 mg tablet, sublingual 1 tab SUBLINGUAL DAILY omeprazole 40 mg capsule,delayed release(DR/EC) 40 mg PO DAILY Qty: 90 1RF sulfamethoxazole-trimethoprim [Bactrim DS] 800-160 mg tablet 1 tab PO DAILY Qty: 10 0RF escitalopram oxalate 20 mg tablet 20 mg PO QHS Patient Comments: Take 1 tablet by mouth at bedtime; does not take daily because dont like the way it makes me feel' trazodone 100 mg tablet 100 mg PO QHS PRN (Reason: sleep) Patient Comments: Take 1 tablet by mouth at bedtime as needed prazosin 1 mg capsule 1 mg PO QHS Patient Comments: Take 1 capsule by mouth at bedtime; only takes periodically Vivitrol 380 mg suspension,extended rel recon 380 mg IM Q28D Stand Alone Forms: ED Work / School Excuse Primary Care Provider: Care Physician,No Primary Referrals: Care Physician,No Primary [Primary Care Provider] - Activity Restrictions/Additional Instructions: Patient was seen in the emergency department today, 11/07/2024. Use your albuterol inhaler that you were given 1 to 2 puffs every 4-6 hours as needed for shortness of breath. Take all of the Tamiflu as prescribed. Use other [id number]-boedfph medications like Robitussin or Mucinex as needed. Print Language: Stateless Disposition Disposition: Home, Self Care Discharge Date/Time: 11/07/24 10:10
--- NOTE | 2024-11-07 08:25 | RAD_ITS ---
EXAM: XR Chest, 1 View CLINICAL INDICATION: TECHNIQUE: Frontal view of the chest. COMPARISON: No relevant prior studies available. FINDINGS: LUNGS AND PLEURAL SPACES: Unremarkable. No consolidation. No pneumothorax. HEART: Unremarkable. No cardiomegaly. MEDIASTINUM: Unremarkable. Normal mediastinal contour. BONES/JOINTS: Unremarkable. No acute fracture. RAD/Chest 1 View (Portable) IMPRESSION: No acute cardiopulmonary process. Reading [facility]
[2024-11-07 08:30] VITALS: PULSE 76; RESP 17
[2024-11-07] MEDS: Albuterol Sulfate 8 gm Inhaler (60 puffs) 4 PUFF INHALATION (08:30)
[2024-11-07 09:42] VITALS: PULSE 90; RESP 18; O2SAT 96
[2024-11-07 10:10] VITALS: BP 126/73; PULSE 64; RESP 18; TEMP 36.9; O2SAT 99
== END 2024-11-07 10:10 | disposition home or self-care (01) ==
PROVIDERS: Emergency Provider Emergency Medicine; Visit Provider Emergency Medicine
DX: J10.1 Influenza due to other identified influenza virus with other respiratory manifestations (principal); B34.9 Viral infection, unspecified; F17.200 Nicotine dependence, unspecified, uncomplicated
CPT/HCPCS: 71045; 87631; 94640; 99282

== ENCOUNTER 2025-05-06 23:54 | Emergency (ER) | payer MEDICAID, SELFPAY ==
[2025-05-06 23:54] VITALS: BP 130/76; PULSE 82; RESP 18; TEMP 36.9; O2SAT 100; BMI 42.6
[2025-05-06 23:56] VITALS: O2SAT 100
--- NOTE | 2025-05-07 00:07 | ED.VIS.DYS ---
HPI History of Present Illness Chief Complaint: Shortness of Breath Informant: patient Narrative Narrative: 2-day history worsening cough wheeze. No fever or chills. Chest discomfort back discomfort from cough. Tobacco history. Denies asthma or COPD. Lives at a sober living states there were individuals sick there. No vomiting no diarrhea no urinary symptoms. Symptoms worsening after working today. She had leftover inhaler from illness earlier this year she has been using. Prior similar symptoms: Yes PFSH PFSH Medical History Hepatitis C Headache, migraine Drug abuse Home Medications ?Medication ?Instructions ?Recorded ?Last Taken ?Type buprenorphine 8.6 mg-naloxone 2.1 1 tab sublingual DAILY 12/05/20 Unknown History mg sublingual tablet (Zubsolv) omeprazole 40 mg capsule,delayed 40 mg PO DAILY #90 caps 12/05/20 Unknown Rx release sulfamethoxazole 800 1 tab PO DAILY #10 tabs 12/23/22 Unknown Rx mg-trimethoprim 160 mg tablet (Bactrim DS) escitalopram oxalate 20 mg tablet 20 mg PO QHS 09/07/23 Unknown History naltrexone microspheres 380 mg 380 mg IM Q28D 09/07/23 Unknown History intramuscular suspension,extended release (Vivitrol) prazosin 1 mg capsule 1 mg PO QHS 09/07/23 Unknown History trazodone 100 mg tablet 100 mg PO QHS PRN sleep 09/07/23 Unknown History oseltamivir 75 mg capsule (Tamiflu) 75 mg PO BID 5 days #10 caps 11/07/24 Unknown Rx albuterol sulfate 90 mcg/actuation 1 - 2 puff inhalation Q4H PRN PRN 05/07/25 Unknown Rx aerosol inhaler (Ventolin HFA) Wheezing ##1 Allergy/AdvReac Type Severity Reaction Status Date / Time cephalexin (From Keflex) Allergy Hives Verified 05/06/25 23:56 loratadine (From Claritin) Allergy Unknown Verified 05/06/25 23:56 Family History Other Alcoholism Anxiety Arthritis CVA (cerebral vascular accident) Cervical cancer Diabetes Heart disease High cholesterol Hypertension Kidney disease Myocardial infarction Osteoporosis Ovarian cancer Suicide attempt blood clots Surgical History History of tonsillectomy History of Social History Smoking Status: Heavy Smoker (>10/day) alcohol intake: never substance use type: former substance user what type of physical activity do you participate in: none ROS ROS ED Constitutional Constitutional ED: Denies chills, fever(s) or sweats ENT ENT ED: Denies sore throat Cardiovascular Cardiovascular: Denies chest pain, leg edema, palpitations or racing heartbeat Respiratory/Chest Respiratory/Chest: Reports cough and dyspnea; Denies dyspnea on exertion Gastrointestinal Gastrointestinal: Denies abdominal pain, diarrhea, nausea or vomiting Genitourinary Genitourinary ED: Denies dysuria, hematuria or urinary frequency Musculoskeletal Musculoskeletal: Reports myalgias; Denies back pain, extremity pain or neck pain Integumentary Denies rash or wounds Neurologic Neurologic: Denies headache(s), paresthesias or weakness EXAM Physical Exam Const Vital Signs: 05/06/25 23:54 05/06/25 23:56 05/07/25 00:22 Temperature 98.4 F Temperature Source Oral Pulse Rate 82 74 Respiratory Rate 18 16 Respiratory Effort Normal Non-Labored Respiratory Depth Normal Respiratory Pattern Normal Blood Pressure 130/76 H Blood Pressure Mean 94 Pulse Ox 100 Oxygen Delivery Method Room Air 05/07/25 02:14 Temperature 98.3 F Temperature Source Pulse Rate 71 Respiratory Rate 18 Respiratory Effort Respiratory Depth Respiratory Pattern Blood Pressure 124/78 H Blood Pressure Mean 93 Pulse Ox 100 Oxygen Delivery Method Positive well nourished and well developed General Appearance ED: well developed and NAD HEENT Reports moist mucous membranes normocephalic and atraumatic Eyes General Eye ED: Yes normal appearance of both eyes Neck full ROM Chest Wall Chest: Negative for tenderness Resp normal respiratory effort Resp Narrative: Diminish sounds bilaterally. No active wheezing. Effort and Inspection: symmetric chest movement; Negative for respiratory distress Cardio regular rate, regular rhythm and no murmurs Peripheral Pulses: pulses 2+ throughout GI normal to inspection, nondistended, normoactive bowel sounds and non-tender Palpation: Negative for guarding or rebound tenderness present Extremity normal to inspection General Extremety ED: Negative for edema or tenderness General Extremity: Negative for edema Neuro oriented x3 and no sensory deficits noted Sensorium / Orientation: awake and alert Skin no rashes or lesions noted and no wounds MDM MDM MDM Narrative Medical decision making narrative: Interventions / MDM: Differential diagnosis: Bronchitis Diagnosis considered but do not suspect: Pneumonia however x-ray negative. My EKG interpretation: N/A Imaging independently reviewed and interpreted by myself: 2 view chest x-ray: Perihilar fullness no infiltrates. Multiple differentials per radiology including lymphoma inflammatory process, sarcoidosis. External documents reviewed: N/A Test considered but not ordered:N/A ED course: Patient diminished breath sounds. Vital stable on her send room air. Productive sputum. Sick contacts at her facility. Will check COVID flu RSV, two-view chest x-ray. Tylenol ordered for aches, albuterol treatment. Chest x-ray negative for infiltrates. Reported mild hilar fullness differential including lymphoma sarcoidosis or inflammatory process. I discussed with the patient likely laboratory with her cough symptoms. I offered further testing with CT scan however she prefers to follow-up for reimaging. She is given follow-up and states will need at least repeat x-ray of the next few weeks to make sure resolution or further testing will be needed. Discussed smoking cessation. All questions were answered. Re-evaluation: stable Disposition discussed with patient/family/significant other: Patient Case discussed with consulting clinician: N/A This note was generated with [employer] dictation software. It may contain incorrect words, spelling, and punctuation that were not noted in checking the note before signing. Radiography Diagnostic Testing: Clinical Impression(s) from Imaging Studies Chest X-Ray 05/07/25 00:40 IMPRESSION: Bilateral hilar adenopathy. Correlate for tumor, such as lymphoma, as well as inflammatory process, such as sarcoidosis, and recommend chest CT. Mild interstitial prominence which could be infectious or noninfectious inflammation. CT could also further assess. Reading Location: [place] [address] Discharge Plan Triage Chief Complaint: Shortness of Breath ED Provider: Chester Cardona Dx/Rx/DC Orders Clinical Impression: Acute viral bronchitis, Cough Instructions: ED Bronchitis, No Antibiotic (Adult) Prescriptions: New albuterol sulfate [Ventolin HFA] 90 mcg/actuation HFA aerosol inhaler 1 - 2 puff inhalation Q4H PRN PRN (Reason: Wheezing) Qty: 1 0RF No Action Zubsolv 8.6-2.1 mg tablet, sublingual 1 tab SUBLINGUAL DAILY omeprazole 40 mg capsule,delayed release(DR/EC) 40 mg PO DAILY Qty: 90 1RF sulfamethoxazole-trimethoprim [Bactrim DS] 800-160 mg tablet 1 tab PO DAILY Qty: 10 0RF escitalopram oxalate 20 mg tablet 20 mg PO QHS Patient Comments: Take 1 tablet by mouth at bedtime; does not take daily because dont like the way it makes me feel' trazodone 100 mg tablet 100 mg PO QHS PRN (Reason: sleep) Patient Comments: Take 1 tablet by mouth at bedtime as needed prazosin 1 mg capsule 1 mg PO QHS Patient Comments: Take 1 capsule by mouth at bedtime; only takes periodically Vivitrol 380 mg suspension,extended rel recon 380 mg IM Q28D oseltamivir [Tamiflu] 75 mg capsule 75 mg PO BID 5 Days Qty: 10 0RF Primary Care Provider: Care Physician,No Primary Referrals: Care Physician,No Primary [Primary Care Provider] - Ashley Dixon [facility], [[facility]] - 1-2 Weeks Activity Restrictions/Additional Instructions: COVID flu and RSV negative. X-ray no infiltrate. However bilateral hilar fullness likely adenopathy per radiology. He had cough symptoms. You will need a repeat x-ray of your chest a few weeks from now to make sure cleared versus further testing. Print Language: Vietnamese Disposition Disposition: Home, Self Care Discharge Date/Time: 05/07/25 02:15
[2025-05-07] MEDS: Albuterol 2.5 MG/3 ML VIAL.NEB. INHALATION (00:21)
[2025-05-07 00:22] VITALS: PULSE 74; RESP 16
--- NOTE | 2025-05-07 00:40 | RAD_ITS ---
PROCEDURE: CHEST PA AND LATERAL 05/07/2025 REASON FOR EXAM: COUGH TECHNIQUE: CHEST PA AND LATERAL COMPARISON: 11/07/2024 FINDINGS: Normal heart size. Bilateral hilar fullness, interval worsening, likely adenopathy. Well inflated lungs. Possible mild interstitial prominence. No consolidation, effusion or pneumothorax. RAD/Chest PA and Lateral IMPRESSION: Bilateral hilar adenopathy. Correlate for tumor, such as lymphoma, as well as inflammatory process, such as sarcoidosis, and recommend chest CT. Mild interstitial prominence which could be infectious or noninfectious inflamm ation. CT could also further assess. Reading Location: [facility]
--- OUTSIDE RECORDS SUMMARY | 2025-05-07 01:06 | XMS RPT_ITS | CCD ---
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 movement. Normal range of motion. Lymphadenopathy: Cervical: No cervical adenopathy. Skin: General: Skin is warm and dry. Neurological: Mental Status: She is alert and oriented to person, place, and time. ASSESSMENT/PLAN: 1. Viral illness - ICD9: 079.99, ICD10: B34.9 - Discussed viral etiology and rationale for treatment. - Symptomatic treatment with prn analgesia - Supportive care with fluids and rest - COVID AND INFLUENZA A/B AND RSV PCR, ROUTINE Patient was educated on supportive therapies. Patient will follow up with primary care provider as needed. Patient was instructed to immediately proceed to emergency room for any new, worsening, or symptoms lasting longer than anticipated. The patient's clinical presentation is otherwise unremarkable at this time. Based on exam and clinical finding, the patient is stable for discharge. Plan of care was discussed with patient. Patient verbalizes understanding and agrees to plan of care. This note was generated using [employer]mmine[employer] software. It may contain errors in wording, punctuation, or spelling. Christos Arroyo APRN.Christos Senior APRN.JIMMY 08/16/2024 4:08 PM Signed How to Manage Common Symptoms Associated with COVID for Adults Fever- Fever is a temperature over 100.4 F and can occur when the body is fighting an infection. To help treat a fever: Drink plen (more content not included)... [facility] COVID AND INFLUENZA A/B AND RSV PCR, ROUTINEon 08-16-2024 SARS-CoV-2 (COVID-19) RNA BO+probe Ql (Unsp spec) SARS-COV-2 (AGENT OF COVID-19) RNA: Not detected INFLUENZA A RNA: Not detected INFLUENZA B RNA: Not detected RESPIRATORY SYNCYTIAL VIRUS (RSV) RNA: Not detected Normal [facility] Comment on above: Performed By: #### B VAMP, CVTV #### [facility] CLIA [id number] [address] [place], [place] [address]K [address] OF [facility] Bob 07-23-2024 CNPN Telephone ([facility]) ISA TUTTLE ([id number]) 1990 F Date Time Provider Department 07/23/24 ANJELICA SUAREZ [facility] During your visit today, we recorded the following information about you: Anjelica Suarez APRN.JIMMY 07/23/2024 11:47 AM Signed I attempted to reach patient to discuss results of urine culture. No answer, left message. If patient returns call she may be advised: Urine culture grew a small amount of bacteria. If she is still having symptoms I can send an antibiotic to the pharmacy. Anjelica Suarez APRN.Pooja Mae MA 07/24/2024 8:51 AM Signed Patient is still having uti symptoms requesting medication for uti sent to [facility]. CORTNEY Boss Krislyn P, PA 07/24/2024 9:05 AM Signed Antibiotic sent to [facility] Allergies As of Date: 07/23/2024 Noted Allergy Reaction SULFAMETHOXAZOLE-TRIMET HOPRIM 12/22/2022 4 - Hives CEPHALEXIN 01/29/2022 4 - Hives CLINDAMYCIN 12/22/2022 16 - Unknown LORATADINE 01/29/2022 16 - Unknown Date Reviewed: 07/21/2024 Reviewed by: Amparo Jones MA - Fully Assessed Reason for Visit: Results [95] Order(s):nitrofurantoin monohydrate and macrocrystal (MACROBID) 100 mg capsuleTake 1 capsule by mouth two times a day for 5 days.Disp: 10 capsuleRfl: 0 Prescriptions as of 07/24/2024 - nitrofurantoin monohydrate and macrocrystal (MACROBID) 100 mg capsule Take 1 capsule by mouth two times a day for 5 days. - metroNIDAZOLE (FLAGYL) 500 mg tablet Take 1 tablet by mouth two times a day for 7 days. - QUEtiapine (SEROQUEL) 100 mg tablet Take 100 mg by mouth daily at bedtime. - escitalopram oxalate (LEXAPRO) 20 mg tablet Take 20 mg by mouth daily at bedtime. - hydrOXYzine pamoate (VISTARIL) 25 mg capsule Take 25 mg by mouth. Problem List As Of Date: 07/23/2024 (None) Prescriptions ordered this encounter Disp Refills Start End NITROFURANTOIN MONOHYDRATE AND MACROCR* 10 c* 0 07/24/2024 07/29/2024 Route: ORAL Sig: Take 1 capsule by mouth two times a day for 5 days. Encounter Status:Closed by POOJA ESTEBAN on 07/24/24 [facility] Bob 07-22-2024 [facility] Telephone ([facility]) ISA TUTTLE ([id number]) 1990 F Date Time Provider Department 07/22/24 NURA ROCHE [facility] During your visit today, we recorded the following information about you: Nura Roche MD 07/22/2024 8:15 AM Signed Vaginal swabs positive for yeast and bacterial vaginosis. Negative for gonorrhea and chlamydia. Antibiotic sent for BV and antifungal sent for yeast. Pushpa Falk MA 07/22/2024 8:57 AM Signed Left VM instructing patient to return call to receive results. CORTNEY Heard Beth, LPN 07/22/2024 8:58 AM Signed Phoned patient and went over results, notes from [facility] care provider with understanding. Aware rx's sent to the pharmacy. Allergies As of Date: 07/22/2024 Noted Allergy Reaction SULFAMETHOXAZOLE-TRIMET HOPRIM 12/22/2022 4 - Hives CEPHALEXIN 01/29/2022 4 - Hives CLINDAMYCIN 12/22/2022 16 - Unknown LORATADINE 01/29/2022 16 - Unknown Date Reviewed: 07/21/2024 Reviewed by: Amparo Jones MA - Fully Assessed Reason for Visit: Results [95] Cmt: BV/Jimena+ Order(s):fluconazole (DIFLUCAN) 150 mg tabletTake 1 tablet by mouth once daily for 1 day.Disp: 1 tabletRfl: 0 metroNIDAZOLE (FLAGYL) 500 mg tabletTake 1 tablet by mouth two times a day for 7 days.Disp: 14 tabletRfl: 0 Prescriptions as of 07/22/2024 - fluconazole (DIFLUCAN) 150 mg tablet Take 1 tablet by mouth once daily for 1 day. - metroNIDAZOLE (FLAGYL) 500 mg tablet Take 1 tablet by mouth two times a day for 7 days. - QUEtiapine (SEROQUEL) 100 mg tablet Take 100 mg by mouth daily at bedtime. - escitalopram oxalate (LEXAPRO) 20 mg tablet Take 20 mg by mouth daily at bedtime. - hydrOXYzine pamoate (VISTARIL) 25 mg capsule Take 25 mg by mouth. Problem List As Of Date: 07/22/2024 (None) Prescriptions ordered this encounter Disp Refills Start End FLUCONAZOLE 150 MG TABLET 1 ta* 0 07/22/2024 07/23/2024 Route: ORAL Sig: Take 1 tablet by mouth once daily for 1 day. METRONIDAZOLE 500 MG TABLET 14 t* 0 07/22/2024 07/29/2024 Route: ORAL Sig: Take 1 tablet by mouth two times a day for 7 days. Medications Discontinued During This Encounter Prescriptions - ADDERALL 15 MG TAB (Discontinued) Reported on 09/07/2023 - escitalopram oxalate (LEXAPRO) 20 mg tablet (Discontinued) Reported on 07/21/2024 - KETOCONAZOLE 200 MG TAB (Discontinued) Reported on 09/07/2023 - SELENIUM SULFIDE 2.5 % SHAMPOO (Discontinued) Reported on 09/07/2023 - SULFACETAMIDE SODIUM-SULFUR 10 %-5 % LOTION (Discontinued) Reported on 09/07/2023 - traZODone (DESYREL) 100 mg tablet (Discontinued) Reported on 07/21/2024 Encounter Status:Closed by TITA RESTREPO on 07/22/24 [facility] BACTERIAL VAGINOSIS NAATon 1 Lactobacillus crispatus+gasseri+kris enii + Gardnerella vaginalis + Atopobium vaginae rRNA BO+probe Ql (Vag fld) Positive Abnormal Negative for bacterial vaginosis [facility] Comment on above: Order Comment: Speci men Type: SWAB Ordering Facility: [facility] Address: [address] [place] [address] Performed By: #### B VAMP, CVTV #### [facility] CLIA [id number] [address] [place] [address] [place] Bacteria Ur Culton Bacteria identified Cx Nom (U) ORGANISM ID: 1 10,000 -<50,000 CFU/ml Streptococcus agalactiae (group b streptococcus) Susceptibility testing not performed on beta hemolytic streptococci due to predictable susceptibility to penicillin and other beta lactams. For testing, call Microbiology within 72 hours. Normal [facility] Comment on above: Performed By: #### 6 30-4 #### [facility] CLIA [id number] [address] [place] [address] [place] C. trachomatis+N. gonorrhoea e DNA BO+probe Ql (Unsp spec)on 07-21-2024 C. trachomatis rRNA BO+probe Ql (Unsp spec) Negative Normal Negative for Chlamydia trachomatis by amplificaton [facility] Comment on above: Order Comment: Speci men Type: SWAB Ordering Facility: [facility] Address: [address] [place] [address] Performed By: #### 3 6902-5 #### [facility] CLIA [id number] [address] [place] [address] [place] N. gonorrhoeae rRNA BO+probe Ql (Unsp spec) Negative Normal Negative for Neisseria gonorrhoeae by amplification [facility] Comment on above: Order Comment: Speci men Type: SWAB Ordering Facility: [facility] Address: [address] [place] [address] Performed By: #### 3 6902-5 #### [facility] CLIA [id number] [address] [place] [address] [place] JIMENA/TRICHOMONAS NAATon 1 C. glabrata RNA BO+probe Ql (Vag fld) Negative Normal Negative for Jimena glabrata [facility] Comment on above: Order Comment: Speci men Type: SWAB Ordering Facility: [facility] Address: [address] [place] [address] Performed By: #### B VAMP, CVTV #### [facility] CLIA [id number] [address] [place] [address] [place] Jimena sp DNA BO+probe Ql (Vag fld) Positive Abnormal Negative for Jimena species [facility] Comment on above: Order Comment: Speci men Type: SWAB Ordering Facility: [facility] Address: [address] [place] [address] Performed By: #### Hector VAMP, CVTV #### [facility] CLIA [id number] [address] [place] [address] [place] T. vaginalis DNA BO+probe Ql (Unsp spec) Negative Normal Negative for Trichomonas vaginalis by amplification [facility] Comment on above: Order Comment: Speci men Type: SWAB Ordering Facility: [facility] Address: [address] [place] [address] Performed By: #### Hector VAMP, CVTV #### [facility] CLIA [id number] [address] [place] [address] [place] CNOVon 07-21-2024 CNOV Office Visit ([facility] ) ISA TUTTLE ([id number]) 1990 F Date Time Provider Department 07/21/24 5:45 PM DELICIA JHATR During your visit today, we recorded the following information about you: Temperature Pulse Respiration Blood pressure 98.9 degrees 90/minute 16/minute 102/68 Weight Last Period 122.4 kg 06/25/24 Delicia Jha APRN.[employer] 07/21/2024 6:48 PM Signed This note was created using [employer]. Subjective Isa Tuttle is a 33 year old female. 33 year old female with PMH presents for multiple complaints. Ear Complaints Left ear Feeling of pressure and fullness Endorses my friend used her light and found wax They used a fang pin but without success Denies URI sx Denies cough Denies fever or chills. UTI complaints Acute onset one week ago +urinary frequency +burning +urgency +vaginal discharge LMP 06/23/24 Has had new partner. Unprotected The history is provided by the patient. No russian language professor was used. Ear Pain This is a new problem. The current episode started in the past 7 days. The problem occurs constantly. The problem has been unchanged. Pertinent negatives include no abdominal pain, anorexia, arthralgias, change in bowel habit, chest pain, chills, congestion, coughing, diaphoresis, fatigue, fever, headaches, joint swelling, myalgias, nausea, neck pain, numbness, rash, sore throat, swollen glands, urinary symptoms, vertigo, visual change, vomiting or weakness. Nothing aggravates the symptoms. Treatments tried: fang pin. The treatment provided no relief. UTI The current episode started more than 2 days ago. The problem occurs every urination. The problem has been gradually worsening. The quality of the pain is described as burning. The pain is at a severity of 6/10. The pain is moderate. There has been no fever. She is Sexually active. There is No history of pyelonephritis. Associated symptoms include discharge, frequency and urgency. Pertinent negatives include no chills, no sweats, no nausea, no vomiting, no hematuria, no hesitancy, no possible and no flank pain. She has tried nothing for the symptoms. Her past medical history does not include kidney stones, single kidney, urological procedure, recurrent UTIs, urinary stasis or catheterization. No past medical history on file. PAST SURGICAL HISTORY Procedure Laterality Date PAST SURGICAL HISTORY OF tonsils ALLERGIES Sulfamethoxazole-Trimet hoprim, Cephalexin, Clindamycin, and Loratadine MEDICATIONS QUEtiapine (SEROQUEL) 100 mg tablet Take 100 mg by mouth daily at bedtime. escitalopram oxalate (LEXAPRO) 20 mg tablet Take 20 mg by mouth daily at bedtime. hydrOXYzine pamoate (VISTARIL) 25 mg capsule Take 25 mg by mouth. escitalopram oxalate (LEXAPRO) 20 mg tablet (Patient not taking: Reported on 07/21/2024) traZODone (DESYREL) 100 mg tablet (Patient not taking: Reported on 07/21/2024) ADDERALL 15 MG TAB Take one(1) tablet daily. (Patient not taking: Reported on 09/07/2023) KETOCONAZOLE 200 MG TAB ii; ii at 7days--with orange juice or carbonated beverage (Patient not taking: Reported on 09/07/2023) SULFACETAMIDE SODIUM-SULFUR 10 %-5 % LOTION bid face (Patient not taking: Reported on 09/07/2023) SELENIUM SULFIDE 2.5 % SHAMPOO wait 2 wk, then qod face, back +/- chest--lather, wait 5 minutes, rinse off (Patient not taking: Reported on 09/07/2023) FAMILY HISTORY Problem Relation Age of Onset Diabetes Mother Coronary Artery Disease Maternal Grandfather Coronary Artery Disease Paternal Grandfather Coronary Artery Disease Father Social History Tobacco Use Smoking status: Every Day Types: Cigarettes Smokeless tobacco: Never Review of Systems Constitutional: Negative for chills, diaphoresis, fatigue and fever. HENT: Negative for congestion and sore throat. Respiratory: Negative for cough. Cardiovascular: Negative for chest pain. Gastrointestinal: Negative for abdominal pain, anorexia, change in bowel habit, nausea and vomiting. Genitourinary: Positive for dysuria, frequency and urgency. Negative for flank pain, hematuria and hesitancy. Musculoskeletal: Negative for arthralgias, joint swelling, myalgias and neck pain. Skin: Negative for color change, pallor and rash. Neurological: Negative for vertigo, weakness, numbness and headaches. Hematological: Negative for adenopathy. Does not bruise/bleed easily. Psychiatric/Behavioral: Negative for agitation and behavioral problems. Objective BP 102/68 Pulse 90 Temp 37.2 ?C (98.9 ?F) (Right Tympanic) Resp 16 Wt 122.4 kg (269 lb 13.5 oz) LMP 06/25/2024 (Exact Date) SpO2 98% Physical Exam Vitals and nursing note reviewed. Constitutional: General: She is not in acute distress. Appearance: Normal appearance. She is normal weight. She is not ill-appearing, toxic-appearing or diaphoretic. (more content not included)... Normal [facility] UA DIP, URINE (POC)on 2023 BILIRUBIN UA (POCT) Small Abnormal Negative [facility] CLARITY UA (POCT) Clear [facility] COLOR UA (POCT) Krysten [facility] GLUCOSE UA (POCT) Negative Negative mg/dL [facility] Hemoglobin Ql (U) Negative Negative [facility] Interpretation and review of laboratory results Abnormal [facility] KETONE UA (POCT) Trace Negative mg/dL [facility] LEUKOCYTES UA (POCT) Trace Abnormal Negative [facility] NITRITE UA (POCT) Negative Negative [facility] PH UA (POCT) 6.5 4.5 - 8.0 [facility] Protein Ql (U) Negative Negative mg/dL [facility] SPECIFIC GRAVITY UA (POCT) 1.025 1.005 - 1.030 [facility] UROBILINOGEN UA (POCT) 1.0 Normal E.U./d L [facility] Location:[address], [address] [facility] POINT OF CARE [facility] UA DIP,URINE HCG (POC)on Beta HCG ( test) Ql (U) Negative Negative [facility] Comment on above: Location:[address], [address] 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 [facility] Comment on above: Performed By: #### L 7000.7000 #### [facility] [address] [place], [place], [id number] HCV QT RNA PCR TNP Normal . [facility] Comment on above: Result Comment: Spec imen quantity insufficient for verification by repeat analysis. CONTACTED JENNIFER AT YOUR FACILITY ON 04-25-2024 Performed By: #### L 7000.7000 #### [facility] [address] [place], [address] TEST INFO: TNP Normal . [facility] Comment on above: Performed By: #### L 7000.7000 #### [facility] [address] [place], [address] PAP IG HPV HR APTIMAon 04-25 ADEQ Comment Normal . [facility] Comment on above: Order Comment: Speci men Comment: [id number] Specimen Comment: Source.............Cervix Specimen Comment: LMP / Prev Treat...[id number] Specimen Comment: No. of containers..01 ThinPrep Vial Result Comment: Sati sfactory for evaluation. No endocervical component is identified. Performed By: #### L 3890.6300, L3100.0460, L7400.0377, L3890.6200, L801.1541, L3890.6005, L3890.6100, L509.8000 #### [facility] [address] [place], [address] COMM . Normal . [facility] Comment on above: Order Comment: Speci men Comment: [id number] Specimen Comment: Source.............Cervix Specimen Comment: LMP / Prev Treat...[id number] Specimen Comment: No. of containers..01 ThinPrep Vial Performed By: #### L 3890.6300, L3100.0460, L7400.0377, L3890.6200, L801.1541, L3890.6005, L3890.6100, L509.8000 #### [facility] [address] [place], [place], [address] COMMENT Comment Normal . [facility] Comment on above: Order Comment: Speci men Comment: [id number] Specimen Comment: Source.............Cervix Specimen Comment: LMP / Prev Treat...[id number] Specimen Comment: No. of containers..01 ThinPrep Vial Result Comment: This liquid based ThinPrep(R) pap test was screened with the use of an image guided system. Performed By: #### L 3890.6300, L3100.0460, L7400.0377, L3890.6200, L801.1541, L3890.6005, L3890.6100, L509.8000 #### [facility] [address] [place], [place], [id number] DIAG Comment Normal . [facility] Comment on above: Order Comment: Speci men Comment: [id number] Specimen Comment: Source.............Cervix Specimen Comment: LMP / Prev Treat...[id number] Specimen Comment: No. of containers..01 ThinPrep Vial Result Comment: NEGA TIVE FOR INTRAEPITHELIAL LESION OR MALIGNANCY. Performed By: #### L 3890.6300, L3100.0460, L7400.0377, L3890.6200, L801.1541, L3890.6005, L3890.6100, L509.8000 #### [facility] [address] [place], [address] HPV APTIMA, HR Negative Normal Negative [facility] Comment on above: Order Comment: Speci men Comment: [id number] Specimen Comment: Source.............Cervix Specimen Comment: LMP / Prev Treat...[id number] Specimen Comment: No. of containers..01 ThinPrep Vial Result Comment: This nucleic acid amplification test detects fourteen high- risk HPV types (16,18,31,33,35,39,45,51,52,56,58,59,66,68) without differentiation. Performed at: [address] [id number] Reel Repairer: Na Hall MD, Phone: [phone] Performed at: =[address] [id number] Reel Repairer: Na Hall MD, Phone: [phone] Performed By: #### L 3890.6300, L3100.0460, L7400.0377, L3890.6200, L801.1541, L3890.6005, L3890.6100, L509.8000 #### [facility] [address] [place], [address] PAPSMR Comment Normal . [facility] Comment on above: Order Comment: Speci men Comment: [id number] Specimen Comment: Source.............Cervix Specimen Comment: LMP / Prev Treat...[id number] Specimen Comment: No. of containers..01 ThinPrep Vial Result Comment: The Pap smear is a screening test designed to aid in the detection of premalignant and malignant conditions of the uterine cervix. It is not a diagnostic procedure and should not be used as the sole means of detecting cervical cancer. Both false-positive and false-negative reports do occur. Performed By: #### L 3890.6300, L3100.0460, L7400.0377, L3890.6200, L801.1541, L3890.6005, L3890.6100, L509.8000 #### [facility] [address] [place], [place], [id number] PERFORM Comment Normal . [facility] Comment on above: Order Comment: Speci men Comment: [id number] Specimen Comment: Source.............Cervix Specimen Comment: LMP / Prev Treat...[id number] Specimen Comment: No. of containers..01 ThinPrep Vial Result Comment: Jessica Pelayo, Legal Editor (ASCP) Performed By: #### L 3890.6300, L3100.0460, L7400.0377, L3890.6200, L801.1541, L3890.6005, L3890.6100, L509.8000 #### [facility] [address] [place], [address] [facility] Procedure[facility] n 04-24-2024 [facility] TEST Normal [facility] Comment on above: Order Comment: [id number] VG+, APTIMA ORANGE, RMT [id number] VG+, APTIMA ORANGE, RMT Result Comment: TEST RESULTS LIMITS NuSwab Vaginitis Plus (VG+) Bacterial Vaginosis, BO Atopobium vaginae, High - 2 Abnormal Score BVAB 2, High - 2 Abnormal Score Megasphaera 1, High - 2 Abnormal Score Total Score, add three scores Calculate total score by adding the 3 individual bacterial vaginosis (BV) marker scores together. Total score is interpreted as follows: Total score 0-1: Indicates the absence of BV. Total score 2: Indeterminate for BV. Additional clinical data should be evaluated to establish a diagnosis. Total score 3-6: Indicates the presence of BV. Jimena albicans, BO, Negative Negative Jimena glabrata, BO, Negative Negative Trich vag by BO Negative Negative Chlamydia trachomatis, BO Negative Negative Neisseria gonorrhoeae, BO Negative Negative [facility] ORIGINAL REPORT ON FILE IN LAB CONTAINS ADDITIONAL TEST SITE INFORMATION. Performed By: #### L 3890.6300, L3100.0460, L7400.0377, L3890.6200, L801.1541, L3890.6005, L3890.6100, L509.8000 #### [facility] [address] [place], [place], [address] Hepatitis B Core Ab Totalon 04-22-2024 HEP B CORE,TOT Negative Normal Negative [facility] Comment on above: Result Comment: Perf ormed at: [facility] [id number] Reel Repairer: Chaitanya Jolly PhD, Phone: [phone] Performed By: #### L 3890.6300, L3100.0460, L7400.0377, L3890.6200, L801.1541, L3890.6005, L3890.6100, L509.8000 #### [facility] [address] [place], [place], [address] HIV - WCHon 04-20-2024 HIV Non-Reactive Normal Nonreactive [facility] Comment on above: Performed By: #### L 3890.6300, L3100.0460, L7400.0377, L3890.6200, L801.1541, L3890.6005, L3890.6100, L509.8000 #### [facility] [address] [place], [place], [id number] Hepatitis B Surface Antibody on 04-20-2024 HEP B Surf Ab Reactive Normal [facility] Comment on above: Result Comment: Non Reactive: Inconsistent with immunity less than <10 mIU/mL Reactive: Consistent with immunity greater than or equal to 10 mIU/mL Performed By: #### L 3890.6300, L3100.0460, L7400.0377, L3890.6200, L801.1541, L3890.6005, L3890.6100, L509.8000 #### [facility] [address] [place], [address] Hepatitis B Surface Antigeno n 04-20-2024 HEP B Surf Ag Non-Reactive Normal Nonreactive [facility] Comment on above: Performed By: #### L 3890.6300, L3100.0460, L7400.0377, L3890.6200, L801.1541, L3890.6005, L3890.6100, L509.8000 #### [facility] [address] [place], [address] Hepatitis C Antibodyon 04-20 Hepatitis C AB Preliminary Reactive Normal Nonreactive [facility] Comment on above: Result Comment: Non Reactive: < 0.8 Equivocal: >/= 0.8 to < 1.0 Reactive: >/= 1.0 The CDC requires that a reactive/equivocal HCV antibody result be sent out for confirmation. HCV Quant by PCR testing. Performed By: #### L 3890.6300, L3100.0460, L7400.0377, L3890.6200, L801.1541, L3890.6005, L3890.6100, L509.8000 #### [facility] [address] [place], [address] L509.8000on 04-20-2024 Syphilis Abs Reactive Normal [facility] Comment on above: Performed By: #### L 3890.6300, L3100.0460, L7400.0377, L3890.6200, L801.1541, L3890.6005, L3890.6100, L509.8000 #### [facility] [address], [place], [id number] Absolute lymphocyte countOrd ered By: Dr. Kern on 12-23-2022 Lymphocytes Auto (Unsp spec) [#/Vol] 2.54 10*3/uL 0.83-4.51 [facility] Basophil percentageOrdered B y: Dr. Kern on 12-23-2022 Basophil percentage 0-5 SEEN /hpf 0-5 [facility] Basophils/100 WBC (Bld) 0.4 % 0-1 [facility] Eosinophils/100 WBC (Bld) 2.8 % 0-5 [facility] Neutrophils (Bld) [#/Vol] 3.8 10*3/uL 2.0-7.7 [facility] Neutrophils/100 WBC (Bld) 50.6 % 47-70 [facility] WBC (Bld) [#/Vol] 7.6 10*3/uL 4.4-11.0 [facility] Beta hCG serum qualOrdered B y: Dr. Kern on 12-23-2022 Beta HCG ( test) Ql Negative [facility] Bilirubin Test strip Ql (U)O rdered By: Dr. Kern on 12-23-2022 Bilirubin Ql (U) 1 mg/dL Negative [facility] Comment on above: COLOR OF URINE MAY A FFECT DIPSTICK RESULTS. Blood erythrocytes count (nu mber/volume)Ordered By: Dr. Kern on 12-23-2022 RBC (Bld) [#/Vol] 3.84 10*6/uL 4.2-5.4 [facility] Blood hemoglobin measurement (mass/volume)Ordered By: Dr. Kern on 12-23-2022 Hemoglobin (Bld) [Mass/Vol] 12.1 g/dL 12.0-15.0 [facility] Blood lymphocytes/100 leukoc ytesOrdered By: Dr. Kern on 12-23-2022 Lymphocytes/100 WBC (Bld) 33.6 % 19-41 [facility] Blood monocytes/100 leukocyt esOrdered By: Dr. Kern on 12-23-2022 Monocytes/100 WBC (Bld) 12.3 % 0-10 [facility] Blood platelet mean volumeOr dered By: Dr. Kern on 12-23-2022 Platelet mean volume (Bld) [Entitic vol] 9.8 fL 6.2-12.0 [facility] Determination of erythrocyte mean corpuscular volume (MCV)Ordered By: Dr. Kern on 12-23-2022 MCV (RBC) [Entitic vol] 88.8 fL 81-99 [facility] Hematocrit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 ABOG, ANSG, HIVRP, MISC #### [address] [address] #### HEPAC, RUBIS, RPR, VARIS #### [address] [address] Lymphocytes/100 WBC (Bld) 24.5 % Normal 20.0-40.0 [facility] ([place]) Comment on above: Performed By: #### C BC, ADIFF, ANEU, ABOG, ANSG, HIVRP, MISC #### [place] [address] #### HEPAC, RUBIS, RPR, VARIS #### [address] [address] Monocytes/100 WBC (Bld) 6.1 % Normal 2.0-13.0 [facility] ([place]) Comment on above: Performed By: #### C BC, ADIFF, ANEU, ABOG, ANSG, HIVRP, MISC #### [place] [address] #### HEPAC, RUBIS, RPR, VARIS #### [address] [address] Neutrophils/100 WBC (Bld) 68.1 % Normal 50.0-75.0 [facility] ([place]) Comment on above: Performed By: #### C BC, ADIFF, ANEU, ABOG, ANSG, HIVRP, MISC #### [place] [address] #### HEPAC, RUBIS, RPR, VARIS #### [address] [address] .GFRon 03-27-2019 GFR Non- >60 Normal [facility] ([place]) Comment on above: Result Comment: GFR Population mean for , Non- Americans Ages 20-29 = 116 mL/min/1.73 sq.m. Ages 30-39 = 107 mL/min/1.73 sq.m. Ages 40-49 = 99 mL/min/1.73 sq.m. Ages 50-59 = 93 mL/min/1.73 sq.m. Ages 60-69 = 85 mL/min/1.73 sq.m. Ages 70+ = 75 mL/min/1.73 sq.m. Chronic Kidney Disease: Less than 60 mL/min/1.73 square meters End Stage Renal Disease: Less than 15 mL/min/1.73 square meters Performed By: #### C BC, ADIFF, ANEU, ABOG, ANSG, HIVRP, MISC #### [address] [address] #### HEPAC, RUBIS, RPR, VARIS #### [address] [address] GFR >[address] [facility] ([place]) Comment on above: Result Comment: GFR Population mean for , Non- Americans Ages 20-29 = 116 mL/min/1.73 sq.m. Ages 30-39 = 107 mL/min/1.73 sq.m. Ages 40-49 = 99 mL/min/1.73 sq.m. Ages 50-59 = 93 mL/min/1.73 sq.m. Ages 60-69 = 85 mL/min/1.73 sq.m. Ages 70+ = 75 mL/min/1.73 sq.m. Chronic Kidney Disease: Less than 60 mL/min/1.73 square meters End Stage Renal Disease: Less than 15 mL/min/1.73 square meters Performed By: #### C BC, ADIFF, ANEU, ABOG, ANSG, HIVRP, MISC #### [address] [address] #### HEPAC, RUBIS, RPR, VARIS #### [address] [address] .NEUABSon 03-27-2019 Neutrophils (Bld) [#/Vol] 8.80 10 3/mcL High 2.25-8.10 [facility] ([place]) Comment on above: Performed By: #### C BC, ADIFF, ANEU, ABOG, ANSG, HIVRP, MISC #### [place] [address] #### HEPAC, RUBIS, RPR, VARIS #### [address] [address] CBCon 03-27-2019 Erythrocyte distribution width (RBC) [Ratio] 13.6 % Normal 11.5-15.5 [facility] ([place]) Comment on above: Performed By: #### C BC, ADIFF, ANEU, ABOG, ANSG, HIVRP, MISC #### [place] [address] #### HEPAC, RUBIS, RPR, VARIS #### [place] [address] Hematocrit (Bld) [Volume fraction] 37.2 % Normal 34.0-46.0 [facility] ([place]) Comment on above: Performed By: #### C BC, ADIFF, ANEU, ABOG, ANSG, HIVRP, MISC #### [place] [address] #### HEPAC, RUBIS, RPR, VARIS #### [place] [address] Hemoglobin (Bld) [Mass/Vol] 12.8 G/dL Normal 12.0-16.0 [facility] ([place]) Comment on above: Performed By: #### C BC, ADIFF, ANEU, ABOG, ANSG, HIVRP, MISC #### [place] [address] #### HEPAC, RUBIS, RPR, VARIS #### [facility] [address] [place], [place] [address] MCH (RBC) [Entitic mass] 30.0 pg Normal 27.0-33.0 [facility] ([place]) Comment on above: Performed By: #### C BC, ADIFF, ANEU, ABOG, ANSG, HIVRP, MISC #### [address] [address] #### HEPAC, RUBIS, RPR, VARIS #### [place] [address] MCHC (RBC) [Mass/Vol] 34.5 G/dL Normal 32.0-36.0 [facility] ([place]) Comment on above: Performed By: #### C BC, ADIFF, ANEU, ABOG, ANSG, HIVRP, MISC #### [address] [address] #### HEPAC, RUBIS, RPR, VARIS #### [place] [address] MCV (RBC) [Entitic vol] 87.0 fL Normal 80.0-99.0 [facility] ([place]) Comment on above: Performed By: #### C BC, ADIFF, ANEU, ABOG, ANSG, HIVRP, MISC #### [address] [address] #### HEPAC, RUBIS, RPR, VARIS #### [place] [address] Platelet mean volume (Bld) [Entitic vol] 8.0 fL Normal 6.6-10.5 [facility] ([place]) Comment on above: Performed By: #### C BC, ADIFF, ANEU, ABOG, ANSG, HIVRP, MISC #### [place] [address] #### HEPAC, RUBIS, RPR, VARIS #### [place] [address] Platelets (Bld) [#/Vol] 339 10 3/mcL Normal 150-450 [facility] ([place]) Comment on above: Performed By: #### C BC, ADIFF, ANEU, ABOG, ANSG, HIVRP, MISC #### [address] [address] #### HEPAC, RUBIS, RPR, VARIS #### [address] [address] RBC (Bld) [#/Vol] 4.28 10 6/mcL Normal 4.10-5.30 [facility] ([place]) Comment on above: Performed By: #### C BC, ADIFF, ANEU, ABOG, ANSG, HIVRP, MISC #### [address] [address] #### HEPAC, RUBIS, RPR, VARIS #### [address] [address] WBC (Bld) [#/Vol] 12.90 10 3/mcL High 4.50-10.80 [facility] ([place]) Comment on above: Performed By: #### C BC, ADIFF, ANEU, ABOG, ANSG, HIVRP, MISC #### [address] [address] #### HEPAC, RUBIS, RPR, VARIS #### [address] [address] CMPon 03-27-2019 Albumin/Globulin [Mass ratio] 0.7 {ratio} Low 0.9-1.6 [facility] ([place]) Comment on above: Performed By: #### C BC, ADIFF, ANEU, ABOG, ANSG, HIVRP, MISC #### [address] [address] #### HEPAC, RUBIS, RPR, VARIS #### [address] [address] ALP [Catalytic activity/Vol] 176 U/L High 38-126 [facility] ([place]) Comment on above: Performed By: #### C BC, ADIFF, ANEU, ABOG, ANSG, HIVRP, MISC #### [place] [address] #### HEPAC, RUBIS, RPR, VARIS #### [address] [address] Bili Total 0.2 mg/dL Normal 0.2-1.2 [facility] ([place]) Comment on above: Performed By: #### C BC, ADIFF, ANEU, ABOG, ANSG, HIVRP, MISC #### [place] [address] #### HEPAC, RUBIS, RPR, VARIS #### [address] [address] Creatinine [Mass/Vol] 0.58 mg/dL Normal 0.50-1.20 [facility] ([place]) Comment on above: Performed By: #### C BC, ADIFF, ANEU, ABOG, ANSG, HIVRP, MISC #### [place] [address] #### HEPAC, RUBIS, RPR, VARIS #### [address] [address] Globulin (S) [Mass/Vol] 4.3 G/dL High 1.5-3.8 [facility] ([place]) Comment on above: Performed By: #### C BC, ADIFF, ANEU, ABOG, ANSG, HIVRP, MISC #### [place] [address] #### HEPAC, RUBIS, RPR, VARIS #### [address] [address] Protein [Mass/Vol] 7.1 G/dL Normal 6.0-8.5 [facility] ([place]) Comment on above: Performed By: #### C BC, ADIFF, ANEU, ABOG, ANSG, HIVRP, MISC #### [place] [address] #### HEPAC, RUBIS, RPR, VARIS #### [address] [address] Urea nitrogen/Creatinine [Mass ratio] 17.2 ratio Normal 10.0-22.0 [facility] ([place]) Comment on above: Performed By: #### C BC, ADIFF, ANEU, ABOG, ANSG, HIVRP, MISC #### [address] [address] #### HEPAC, RUBIS, RPR, VARIS #### [address] [address] Albumin [Mass/Vol] 2.8 G/dL Low 3.2-4.8 [facility] ([place]) Comment on above: Performed By: #### C BC, ADIFF, ANEU, ABOG, ANSG, HIVRP, MISC #### [place] [address] #### HEPAC, RUBIS, RPR, VARIS #### [address] [address] ALT [Catalytic activity/Vol] 12 U/L Normal 10-49 [facility] ([place]) Comment on above: Performed By: #### C BC, ADIFF, ANEU, ABOG, ANSG, HIVRP, MISC #### [place] [address] #### HEPAC, RUBIS, RPR, VARIS #### [address] [address] AST [Catalytic activity/Vol] 12 U/L Normal 8-34 [facility] ([place]) Comment on above: Performed By: #### C BC, ADIFF, ANEU, ABOG, ANSG, HIVRP, MISC #### [place] [address] #### HEPAC, RUBIS, RPR, VARIS #### [address] [address] Calcium [Mass/Vol] 9.0 mg/dL Normal 8.4-10.1 [facility] ([place]) Comment on above: Performed By: #### C BC, ADIFF, ANEU, ABOG, ANSG, HIVRP, MISC #### [place] [address] #### HEPAC, RUBIS, RPR, VARIS #### [address] [address] Chloride [Moles/Vol] 107 mmol/L Normal 98-110 [facility] ([place]) Comment on above: Performed By: #### C BC, ADIFF, ANEU, ABOG, ANSG, HIVRP, MISC #### [place] [address] #### HEPAC, RUBIS, RPR, VARIS #### [address] [address] CO2 [Moles/Vol] 23 mmol/L Normal 22-32 [facility] ([place]) Comment on above: Performed By: #### C BC, ADIFF, ANEU, ABOG, ANSG, HIVRP, MISC #### [place] [address] #### HEPAC, RUBIS, RPR, VARIS #### [address] [address] Electrolyte Balance 10.0 mEq/L Normal 4.0-15.0 [facility] ([place]) Comment on above: Performed By: #### C BC, ADIFF, ANEU, ABOG, ANSG, HIVRP, MISC #### [place] [address] #### HEPAC, RUBIS, RPR, VARIS #### [address] [address] Glucose [Mass/Vol] 73 mg/dL Normal 70-110 [facility] ([place]) Comment on above: Performed By: #### C BC, ADIFF, ANEU, ABOG, ANSG, HIVRP, MISC #### [place] [address] #### HEPAC, RUBIS, RPR, VARIS #### [address] [address] Potassium [Moles/Vol] 4.2 mmol/L Normal 3.5-5.0 [facility] ([place]) Comment on above: Performed By: #### C BC, ADIFF, ANEU, ABOG, ANSG, HIVRP, MISC #### [address] [address] #### HEPAC, RUBIS, RPR, VARIS #### [address] [address] Sodium [Moles/Vol] 140 mmol/L Normal 136-145 [facility] ([place]) Comment on above: Performed By: #### C BC, ADIFF, ANEU, ABOG, ANSG, HIVRP, MISC #### [address] [address] #### HEPAC, RUBIS, RPR, VARIS #### [address] [address] Urea nitrogen [Mass/Vol] 10.0 mg/dL Normal 8.0-22.0 [facility] ([place]) Comment on above: Performed By: #### C BC, ADIFF, ANEU, ABOG, ANSG, HIVRP, MISC #### [address] [address] #### HEPAC, RUBIS, RPR, VARIS #### [address] [address] Drug Don 03-27-2019 Drug Screen Urine Negative Normal [facility] ([place]) Comment on above: Performed By: #### C BC, ADIFF, ANEU, ABOG, ANSG, HIVRP, MISC #### [address] [address] #### HEPAC, RUBIS, RPR, VARIS #### [address] [address] Drug Screen Urine Interp Urine shows no evidence of drugs routinely screened. [facility] ([place]) Comment on above: Performed By: #### C BC, ADIFF, ANEU, ABOG, ANSG, HIVRP, MISC #### [place] [id number] #### HEPAC, RUBIS, RPR, VARIS #### [place] [address] Urine Drugs screened (DLRM): See Below Normal [facility] ([place]) Comment on above: Result Comment: This drug screen is a presumptive screening only. No confirmation will be performed unless requested. Drugs screened include: Threshold Amphetamines/Methamphetamines 1,000 ng/mL Barbiturates 200 ng/mL Benzodiazepine metabolites 200 ng/mL Cannabinoids (THC metabolites) 50 ng/mL Benzoylecognine (Cocaine metab) 300 ng/mL Opiates 300 ng/mL Phencyclidine (PCP) 25 ng/mL Testing has been performed FOR MEDICAL PURPOSES ONLY. Performed By: #### C BC, ADIFF, ANEU, ABOG, ANSG, HIVRP, MISC #### [place] [address] #### HEPAC, RUBIS, RPR, VARIS #### [place] [address] TABOon 03-27-2019 ABO/Rh Interp Positive [facility] ([place]) Comment on above: Performed By: #### C BC, ADIFF, ANEU, ABOG, ANSG, HIVRP, MISC #### [place] [address] #### HEPAC, RUBIS, RPR, VARIS #### [place] [address] TABSon 03-27-2019 Antibody Screen Tango Negative Normal [facility] ([place]) Comment on above: Performed By: #### C BC, ADIFF, ANEU, ABOG, ANSG, HIVRP, MISC #### [place] [address] #### HEPAC, RUBIS, RPR, VARIS #### [place] [address] CURon 03-23-2019 CUR . MICRO - Microbiology PROCEDURE: Urine Culture [*1] SOURCE: Urine BODY SITE: COLLECTED DATE/TIME: 03/21/2019 11:08 EDT RECEIVED DATE/TIME: 03/21/2019 15:47 EDT START DATE/TIME: 03/21/2019 15:52 EDT FREE TEXT SOURCE: FINAL REPORTS Final Report [] Verified Date/Time/Personnel: 03/23/2019 11:45 EDT 50,000 organisms per mL Escherichia coli PRELIMINARY REPORTS Preliminary Report [] Verified Date/Time/Personnel: 03/22/2019 11:07 EDT 50,000 organisms per mL Gram Negative Rods Final identification and YONG to follow. SUSCEPTIBILITY RESULTS Escherichia coli Antibiotic YONG Dilutn YONG Interp Ampicillin <=8 Susceptible Cefazolin <=8 Susceptible Ciprofloxacin <=1 Susceptible Gentamicin <=4 Susceptible Levofloxacin <=2 Susceptible Meropenem <=1 Susceptible Nitrofurantoin <=32 Susceptible Trimethoprim/ <=2/38 Susceptible Sulfa Performing Locations *1: This test was performed at: [address], [facility] , [facility] ([place]) Comment on above: Performed By: #### C BC, ADIFF, ANEU, ABOG, ANSG, HIVRP, MISC #### [address] [address] #### HEPAC, RUBIS, RPR, VARIS #### [place] [address] CTPCRon 03-22-2019 C. trachomatis Interp Normal See CT Interp N [facility] ([place]) Comment on above: Result Comment: C. t rachomatis DNA not detected. Specimen is presumptive negative for C. trachomatis. A negative result does not preclude C. trachomatis infection because results depend on adequate specimen collection, absence of inhibitors, and sufficient DNA to be detected. See CT Interp N Performed By: #### C BC, ADIFF, ANEU, ABOG, ANSG, HIVRP, MISC #### [address] [address] #### HEPAC, RUBIS, RPR, VARIS #### [place] [address] C.trachomatis PCR Negative Normal Negative [facility] ([place]) Comment on above: Result Comment: [place] keenan (PCR) assay performed on the [employer] 4800 system. Performed By: #### C BC, ADIFF, ANEU, ABOG, ANSG, HIVRP, MISC #### [place] [address] #### HEPAC, RUBIS, RPR, VARIS #### [address] [address] Chlam Source Cervix Normal [facility] ([place]) Comment on above: Performed By: #### C BC, ADIFF, ANEU, ABOG, ANSG, HIVRP, MISC #### [place] [address] #### HEPAC, RUBIS, RPR, VARIS #### [place] [address] DRUGUon 03-22-2019 Drug Screen Urine Negative Normal [facility] ([place]) Comment on above: Performed By: #### C BC, ADIFF, ANEU, ABOG, ANSG, HIVRP, MISC #### [place] [address] #### HEPAC, RUBIS, RPR, VARIS #### [place] [address] Drug Screen Urine Interp Urine shows no evidence of drugs routinely screened. [facility] ([place]) Comment on above: Performed By: #### C BC, ADIFF, ANEU, ABOG, ANSG, HIVRP, MISC #### [place] [address] #### HEPAC, RUBIS, RPR, VARIS #### [place] [id number] U pH Drug Scrn 5.5 Normal 5.0-8.0 [facility] ([place]) Comment on above: Performed By: #### C BC, ADIFF, ANEU, ABOG, ANSG, HIVRP, MISC #### [place] [address] #### HEPAC, RUBIS, RPR, VARIS #### [address] [address] U Specific [place] Drg Scrn 1.020 Normal 1.005-1.030 [facility] ([place]) Comment on above: Performed By: #### C BC, ADIFF, ANEU, ABOG, ANSG, HIVRP, MISC #### [address] [address] #### HEPAC, RUBIS, RPR, VARIS #### [address] [address] Urine Drugs screened: See Below Normal [facility] ([place]) Comment on above: Result Comment: This drug screen is a presumptive screening only. No confirmation will be performed unless requested. Drugs screened include: Threshold Amphetamines/Methamphetamines 1,000 ng/mL Barbiturates 200 ng/mL Benzodiazepine metabolites 200 ng/mL Cannabinoids (THC metabolites) 50 ng/mL Benzoylecognine (Cocaine metab) 300 ng/mL Opiates 300 ng/mL Phencyclidine (PCP) 25 ng/mL Methadone 300 ng/mL Propoxyphene 300 ng/mL Testing has been performed FOR MEDICAL PURPOSES ONLY. Performed By: #### C BC, ADIFF, ANEU, ABOG, ANSG, HIVRP, MISC #### [address] [address] #### HEPAC, RUBIS, RPR, VARIS #### [address] [address] GBPCRon 03-22-2019 GBPCR . MICRO - Microbiology PROCEDURE: Group B Strep PCR [*1] SOURCE: Vaginal Rectal BODY SITE: COLLECTED DATE/TIME: 03/21/2019 11:10 EDT RECEIVED DATE/TIME: 03/21/2019 16:41 EDT START DATE/TIME: 03/21/2019 16:44 EDT FREE TEXT SOURCE: FINAL REPORTS Final Report [] Verified Date/Time/Personnel: 03/22/2019 14:16 EDT GBS NEGATIVE. Group B Streptococcus DNA not detected by Real-Time. Polymerase Chain Reaction (PCR). A negative result does not rule out the possibility of Group B Streptococcus False negative results may occur when Group B Streptococcus concentration is below the level of detection of 200 CFU/mL of sample preparation reagent. If the patient has signs or symptoms of infection, other laboratory tests and clinical information should be used to confirm the negative result. This test is not intended to differentiate carriers of Group B Streptococcus from those with Streptococcus disease. Performing Locations *1: This test was performed at: [facility], [address] [place] [address], [address] [place] [address] ([place]) Comment on above: Performed By: #### C BC, ADIFF, ANEU, ABOG, ANSG, HIVRP, MISC #### [place] [address] #### HEPAC, RUBIS, RPR, VARIS #### [place] [address] HIVon 03-22-2019 HIV 1/2 Ab Normal Negative [facility] ([place]) Comment on above: Result Comment: Nega tive Specimen is negative for anti-HIV-1 and anti-HIV-2. Performed By: #### C BC, ADIFF, ANEU, ABOG, ANSG, HIVRP, MISC #### [place] [address] #### HEPAC, RUBIS, RPR, VARIS #### [address] [address] NGPCRon 03-22-2019 GC PCR Source Cervix [facility] ([place]) Comment on above: Performed By: #### C BC, ADIFF, ANEU, ABOG, ANSG, HIVRP, MISC #### [address] [address] #### HEPAC, RUBIS, RPR, VARIS #### [address] [address] N. gonorrhoeae (PCR) Negative Normal Negative [facility] ([place]) Comment on above: Result Comment: Mole cular (PCR) assay performed on the [employer] 4800 System. Performed By: #### C BC, ADIFF, ANEU, ABOG, ANSG, HIVRP, MISC #### [address] [address] #### HEPAC, RUBIS, RPR, VARIS #### [place] [id number] N. gonorrhoeae Interp Normal See NG Interp N [facility] ([place]) Comment on above: Result Comment: N. g onorrhoeae DNA not detected. Specimen is presumptive negative for N. gonorrhoeae. A negative result does not preclude Neisseria gonorrhoeae infection because results depend on adequate specimen collection, absence of inhibitors, and sufficient DNA to be detected. See NG Interp N Performed By: #### C BC, ADIFF, ANEU, ABOG, ANSG, HIVRP, MISC #### [place] [address] #### HEPAC, RUBIS, RPR, VARIS #### [place] [address] RPRon 03-22-2019 Reagin Ab RPR Ql (S) Non-Reactive Normal Non-Reactive [facility] ([place]) Comment on above: Result Comment: The RPR test is a non-treponemal assay useful as an aid in the diagnosis of primary and secondary syphilis. It converts to positive generally within 2 weeks after the appearance of a lesion. This test is also useful for monitoring response to antibiotic therapy. A positive RPR screening test will be followed by the FTA ABS test. False positive RPR tests may occur in 1) patients with underlying autoimmune disorders, 2) elderly patients, 3) , and 4) other conditions with abnormal serum globulins. Performed By: #### C BC, ADIFF, ANEU, ABOG, ANSG, HIVRP, MISC #### [place] [id number] #### HEPAC, RUBIS, RPR, VARIS #### [place] [phone] UAon 03-22-2019 Color (U) Yellow Normal [facility] ([place]) Comment on above: Performed By: #### C BC, ADIFF, ANEU, ABOG, ANSG, HIVRP, MISC #### [place] [address] #### HEPAC, RUBIS, RPR, VARIS #### [place] [address] Glucose (U) [Mass/Vol] Negative Normal Negative [facility] ([place]) Comment on above: Performed By: #### C BC, ADIFF, ANEU, ABOG, ANSG, HIVRP, MISC #### [place] [address] #### HEPAC, RUBIS, RPR, VARIS #### [place] [address] Ketones Ql (U) Negative Normal Neg-Trace [facility] ([place]) Comment on above: Performed By: #### C BC, ADIFF, ANEU, ABOG, ANSG, HIVRP, MISC #### [place] [address] #### HEPAC, RUBIS, RPR, VARIS #### [place] [address] UA Appear Hazy Clear [facility] ([place]) Comment on above: Performed By: #### C BC, ADIFF, ANEU, ABOG, ANSG, HIVRP, MISC #### [place] [id number] #### HEPAC, RUBIS, RPR, VARIS #### [place] [address] UA Blood Negative Normal Neg-Trace [facility] ([place]) Comment on above: Performed By: #### C BC, ADIFF, ANEU, ABOG, ANSG, HIVRP, MISC #### [place] [id number] #### HEPAC, RUBIS, RPR, VARIS #### [place] [address] UA Leuk Est Small Negative [facility] ([place]) Comment on above: Performed By: #### C BC, ADIFF, ANEU, ABOG, ANSG, HIVRP, MISC #### [place] [id number] #### HEPAC, RUBIS, RPR, VARIS #### [address] [address] UA Nitrite Negative Normal Negative [facility] ([place]) Comment on above: Performed By: #### C BC, ADIFF, ANEU, ABOG, ANSG, HIVRP, MISC #### [place] [id number] #### HEPAC, RUBIS, RPR, VARIS #### [place] [address] UA pH 6.5 Normal 5.0 - 8.0 [facility] ([place]) Comment on above: Performed By: #### C BC, ADIFF, ANEU, ABOG, ANSG, HIVRP, MISC #### [place] [id number] #### HEPAC, RUBIS, RPR, VARIS #### [place] [address] UA Protein Negative Normal Negative [facility] ([place]) Comment on above: Performed By: #### C BC, ADIFF, ANEU, ABOG, ANSG, HIVRP, MISC #### [place] [id number] #### HEPAC, RUBIS, RPR, VARIS #### [place] [address] UA Spec Grav 1.015 Normal 1.006-1.029 [facility] ([place]) Comment on above: Performed By: #### C BC, ADIFF, ANEU, ABOG, ANSG, HIVRP, MISC #### [place] [address] #### HEPAC, RUBIS, RPR, VARIS #### [place] [address] UA Specimen Type Void Normal [facility] ([place]) Comment on above: Performed By: #### C BC, ADIFF, ANEU, ABOG, ANSG, HIVRP, MISC #### [place] [address] #### HEPAC, RUBIS, RPR, VARIS #### [place] [address] UA Urobilinogen 0.2 E.U./dL Normal 0.2-1.0 [facility] ([place]) Comment on above: Performed By: #### C BC, ADIFF, ANEU, ABOG, ANSG, HIVRP, MISC #### [place] [address] #### HEPAC, RUBIS, RPR, VARIS #### [place] [address] Urobilinogen Qn (U) Negative Normal Neg-Trace [facility] ([place]) Comment on above: Performed By: #### C BC, ADIFF, ANEU, ABOG, ANSG, HIVRP, MISC #### [place] [address] #### HEPAC, RUBIS, RPR, VARIS #### [place] [address] UAMICon 03-22-2019 RBC (U) [#/Vol] 0-2 Normal 0-2 [facility] ([place]) Comment on above: Performed By: #### C BC, ADIFF, ANEU, ABOG, ANSG, HIVRP, MISC #### [place] [address] #### HEPAC, RUBIS, RPR, VARIS #### [place] [address] UA Bacteria 2+ /hpf Negative [facility] ([place]) Comment on above: Performed By: #### C BC, ADIFF, ANEU, ABOG, ANSG, HIVRP, MISC #### [place] [address] #### HEPAC, RUBIS, RPR, VARIS #### [place] [address] UA Squam Epithelial 3-5 Normal 0-20 [facility] ([place]) Comment on above: Performed By: #### C BC, ADIFF, ANEU, ABOG, ANSG, HIVRP, MISC #### [place] [address] #### HEPAC, RUBIS, RPR, VARIS #### [place] [address] UA WBC 0-2 Normal 0-5 [facility] ([place]) Comment on above: Performed By: #### C BC, ADIFF, ANEU, ABOG, ANSG, HIVRP, MISC #### [place] [address] #### HEPAC, RUBIS, RPR, VARIS #### [place] [address] .Auto Diffon 03-21-2019 Ammonia (P) [Mass/Vol] 0.60 10 3/mcL Normal 0.09-1.40 [facility] ([place]) Comment on above: Performed By: #### C BC, ADIFF, ANEU, ABOG, ANSG, HIVRP, MISC #### [place] [address] #### HEPAC, RUBIS, RPR, VARIS #### [place] [address] Basophils (Bld) [#/Vol] 0.10 10 3/mcL Normal 0.00-0.27 [facility] ([place]) Comment on above: Performed By: #### C BC, ADIFF, ANEU, ABOG, ANSG, HIVRP, MISC #### [place] [address] #### HEPAC, RUBIS, RPR, VARIS #### [place] [address] Basophils/100 WBC (Bld) 0.6 % Normal 0.0-2.5 [facility] ([place]) Comment on above: Performed By: #### C BC, ADIFF, ANEU, ABOG, ANSG, HIVRP, MISC #### [address] [address] #### HEPAC, RUBIS, RPR, VARIS #### [address] [address] Eosinophils (Bld) [#/Vol] 0.10 10 3/mcL Normal 0.00-0.65 [facility] ([place]) Comment on above: Performed By: #### C BC, ADIFF, ANEU, ABOG, ANSG, HIVRP, MISC #### [address] [address] #### HEPAC, RUBIS, RPR, VARIS #### [address] [address] Eosinophils/100 WBC (Bld) 0.7 % Normal 0.0-6.0 [facility] ([place]) Comment on above: Performed By: #### C BC, ADIFF, ANEU, ABOG, ANSG, HIVRP, MISC #### [place] [address] #### HEPAC, RUBIS, RPR, VARIS #### [address] [address] Lymphocytes (Bld) [#/Vol] 2.40 10 3/mcL Normal 0.90-4.32 [facility] ([place]) Comment on above: Performed By: #### C BC, ADIFF, ANEU, ABOG, ANSG, HIVRP, MISC #### [place] [address] #### HEPAC, RUBIS, RPR, VARIS #### [address] [address] Lymphocytes/100 WBC (Bld) 19.9 % Low 20.0-40.0 [facility] ([place]) Comment on above: Performed By: #### C BC, ADIFF, ANEU, ABOG, ANSG, HIVRP, MISC #### [place] [address] #### HEPAC, RUBIS, RPR, VARIS #### [address] [address] Monocytes/100 WBC (Bld) 4.6 % Normal 2.0-13.0 [facility] ([place]) Comment on above: Performed By: #### C BC, ADIFF, ANEU, ABOG, ANSG, HIVRP, MISC #### [address] [address] #### HEPAC, RUBIS, RPR, VARIS #### [address] [address] Neutrophils/100 WBC (Bld) 74.2 % Normal 50.0-75.0 [facility] ([place]) Comment on above: Performed By: #### C BC, ADIFF, ANEU, ABOG, ANSG, HIVRP, MISC #### [address] [address] #### HEPAC, RUBIS, RPR, VARIS #### [address] [address] .GFRon 03-21-2019 GFR >[address] [facility] ([place]) Comment on above: Result Comment: GFR Population mean for , Non- Americans Ages 20-29 = 116 mL/min/1.73 sq.m. Ages 30-39 = 107 mL/min/1.73 sq.m. Ages 40-49 = 99 mL/min/1.73 sq.m. Ages 50-59 = 93 mL/min/1.73 sq.m. Ages 60-69 = 85 mL/min/1.73 sq.m. Ages 70+ = 75 mL/min/1.73 sq.m. Chronic Kidney Disease: Less than 60 mL/min/1.73 square meters End Stage Renal Disease: Less than 15 mL/min/1.73 square meters Performed By: #### C BC, ADIFF, ANEU, ABOG, ANSG, HIVRP, MISC #### [address] [address] #### HEPAC, RUBIS, RPR, VARIS #### [address] [address] GFR Non- >60 Normal [facility] ([place]) Comment on above: Result Comment: GFR Population mean for , Non- Americans Ages 20-29 = 116 mL/min/1.73 sq.m. Ages 30-39 = 107 mL/min/1.73 sq.m. Ages 40-49 = 99 mL/min/1.73 sq.m. Ages 50-59 = 93 mL/min/1.73 sq.m. Ages 60-69 = 85 mL/min/1.73 sq.m. Ages 70+ = 75 mL/min/1.73 sq.m. Chronic Kidney Disease: Less than 60 mL/min/1.73 square meters End Stage Renal Disease: Less than 15 mL/min/1.73 square meters Performed By: #### C BC, ADIFF, ANEU, ABOG, ANSG, HIVRP, MISC #### [address] [address] #### HEPAC, RUBIS, RPR, VARIS #### [address] [address] .NEUABSon 03-21-2019 Neutrophils (Bld) [#/Vol] 9.10 10 3/mcL High 2.25-8.10 [facility] ([place]) Comment on above: Performed By: #### C BC, ADIFF, ANEU, ABOG, ANSG, HIVRP, MISC #### [address] [address] #### HEPAC, RUBIS, RPR, VARIS #### [address] [address] CBCon 03-21-2019 Erythrocyte distribution width (RBC) [Ratio] 13.5 % Normal 11.5-15.5 [facility] ([place]) Comment on above: Performed By: #### C BC, ADIFF, ANEU, ABOG, ANSG, HIVRP, MISC #### [address] [address] #### HEPAC, RUBIS, RPR, VARIS #### [address] [address] Hematocrit (Bld) [Volume fraction] 35.6 % Normal 34.0-46.0 [facility] ([place]) Comment on above: Performed By: #### C BC, ADIFF, ANEU, ABOG, ANSG, HIVRP, MISC #### [address] [address] #### HEPAC, RUBIS, RPR, VARIS #### [place] [address] Hemoglobin (Bld) [Mass/Vol] 12.2 G/dL Normal 12.0-16.0 [facility] ([place]) Comment on above: Performed By: #### C BC, ADIFF, ANEU, ABOG, ANSG, HIVRP, MISC #### [place] [address] #### HEPAC, RUBIS, RPR, VARIS #### [place] [address] MCH (RBC) [Entitic mass] 30.1 pg Normal 27.0-33.0 [facility] ([place]) Comment on above: Performed By: #### C BC, ADIFF, ANEU, ABOG, ANSG, HIVRP, MISC #### [place] [address] #### HEPAC, RUBIS, RPR, VARIS #### [place] [address] MCHC (RBC) [Mass/Vol] 34.2 G/dL Normal 32.0-36.0 [facility] ([place]) Comment on above: Performed By: #### C BC, ADIFF, ANEU, ABOG, ANSG, HIVRP, MISC #### [place] [address] #### HEPAC, RUBIS, RPR, VARIS #### [place] [address] MCV (RBC) [Entitic vol] 88.3 fL Normal 80.0-99.0 [facility] ([place]) Comment on above: Performed By: #### C BC, ADIFF, ANEU, ABOG, ANSG, HIVRP, MISC #### [address] [address] #### HEPAC, RUBIS, RPR, VARIS #### [address] [address] Platelet mean volume (Bld) [Entitic vol] 7.9 fL Normal 6.6-10.5 [facility] ([place]) Comment on above: Performed By: #### C BC, ADIFF, ANEU, ABOG, ANSG, HIVRP, MISC #### [address] [address] #### HEPAC, RUBIS, RPR, VARIS #### [address] [address] Platelets (Bld) [#/Vol] 412 10 3/mcL Normal 150-450 [facility] ([place]) Comment on above: Performed By: #### C BC, ADIFF, ANEU, ABOG, ANSG, HIVRP, MISC #### [address] [address] #### HEPAC, RUBIS, RPR, VARIS #### [address] [address] RBC (Bld) [#/Vol] 4.03 10 6/mcL Low 4.10-5.30 [facility] ([place]) Comment on above: Performed By: #### C BC, ADIFF, ANEU, ABOG, ANSG, HIVRP, MISC #### [address] [address] #### HEPAC, RUBIS, RPR, VARIS #### [address] [address] WBC (Bld) [#/Vol] 12.30 10 3/mcL High 4.50-10.80 [facility] ([place]) Comment on above: Performed By: #### C BC, ADIFF, ANEU, ABOG, ANSG, HIVRP, MISC #### [place] [address] #### HEPAC, RUBIS, RPR, VARIS #### [address] [address] CMPon 03-21-2019 Albumin/Globulin [Mass ratio] 0.7 {ratio} Low 0.9-1.6 [facility] ([place]) Comment on above: Performed By: #### C BC, ADIFF, ANEU, ABOG, ANSG, HIVRP, MISC #### [place] [address] #### HEPAC, RUBIS, RPR, VARIS #### [address] [address] ALP [Catalytic activity/Vol] 163 U/L High 38-126 [facility] ([place]) Comment on above: Performed By: #### C BC, ADIFF, ANEU, ABOG, ANSG, HIVRP, MISC #### [place] [address] #### HEPAC, RUBIS, RPR, VARIS #### [address] [address] ALT [Catalytic activity/Vol] 12 U/L Normal 10-49 [facility] ([place]) Comment on above: Performed By: #### C BC, ADIFF, ANEU, ABOG, ANSG, HIVRP, MISC #### [place] [address] #### HEPAC, RUBIS, RPR, VARIS #### [address] [address] Bili Total 0.2 mg/dL Normal 0.2-1.2 [facility] ([place]) Comment on above: Performed By: #### C BC, ADIFF, ANEU, ABOG, ANSG, HIVRP, MISC #### [place] [address] #### HEPAC, RUBIS, RPR, VARIS #### [facility] [address] [place], [place] [address] Creatinine [Mass/Vol] 0.62 mg/dL Normal 0.50-1.20 [facility] ([place]) Comment on above: Performed By: #### C BC, ADIFF, ANEU, ABOG, ANSG, HIVRP, MISC #### [address] [address] #### HEPAC, RUBIS, RPR, VARIS #### [address] [address] Globulin (S) [Mass/Vol] 4.0 G/dL High 1.5-3.8 [facility] ([place]) Comment on above: Performed By: #### C BC, ADIFF, ANEU, ABOG, ANSG, HIVRP, MISC #### [place] [address] #### HEPAC, RUBIS, RPR, VARIS #### [address] [address] Protein [Mass/Vol] 6.7 G/dL Normal 6.0-8.5 [facility] ([place]) Comment on above: Performed By: #### C BC, ADIFF, ANEU, ABOG, ANSG, HIVRP, MISC #### [place] [address] #### HEPAC, RUBIS, RPR, VARIS #### [address] [address] Urea nitrogen/Creatinine [Mass ratio] 16.1 ratio Normal 10.0-22.0 [facility] ([place]) Comment on above: Performed By: #### C BC, ADIFF, ANEU, ABOG, ANSG, HIVRP, MISC #### [place] [address] #### HEPAC, RUBIS, RPR, VARIS #### [address] [address] Albumin [Mass/Vol] 2.7 G/dL Low 3.2-4.8 [facility] ([place]) Comment on above: Performed By: #### C BC, ADIFF, ANEU, ABOG, ANSG, HIVRP, MISC #### [address] [address] #### HEPAC, RUBIS, RPR, VARIS #### [address] [address] AST [Catalytic activity/Vol] 10 U/L Normal 8-34 [facility] ([place]) Comment on above: Performed By: #### C BC, ADIFF, ANEU, ABOG, ANSG, HIVRP, MISC #### [address] [address] #### HEPAC, RUBIS, RPR, VARIS #### [address] [address] Calcium [Mass/Vol] 9.1 mg/dL Normal 8.4-10.1 [facility] ([place]) Comment on above: Performed By: #### C BC, ADIFF, ANEU, ABOG, ANSG, HIVRP, MISC #### [place] [address] #### HEPAC, RUBIS, RPR, VARIS #### [address] [address] Chloride [Moles/Vol] 105 mmol/L Normal 98-110 [facility] ([place]) Comment on above: Performed By: #### C BC, ADIFF, ANEU, ABOG, ANSG, HIVRP, MISC #### [address] [address] #### HEPAC, RUBIS, RPR, VARIS #### [address] [address] CO2 [Moles/Vol] 25 mmol/L Normal 22-32 [facility] ([place]) Comment on above: Performed By: #### C BC, ADIFF, ANEU, ABOG, ANSG, HIVRP, MISC #### [address] [address] #### HEPAC, RUBIS, RPR, VARIS #### [address] [address] Electrolyte Balance 7.0 mEq/L Normal 4.0-15.0 [facility] ([place]) Comment on above: Performed By: #### C BC, ADIFF, ANEU, ABOG, ANSG, HIVRP, MISC #### [address] [address] #### HEPAC, RUBIS, RPR, VARIS #### [address] [address] Glucose [Mass/Vol] 128 mg/dL High 70-110 [facility] ([place]) Comment on above: Performed By: #### C BC, ADIFF, ANEU, ABOG, ANSG, HIVRP, MISC #### [address] [address] #### HEPAC, RUBIS, RPR, VARIS #### [address] [address] Potassium [Moles/Vol] 4.4 mmol/L Normal 3.5-5.0 [facility] ([place]) Comment on above: Performed By: #### C BC, ADIFF, ANEU, ABOG, ANSG, HIVRP, MISC #### [address] [address] #### HEPAC, RUBIS, RPR, VARIS #### [address] [address] Sodium [Moles/Vol] 137 mmol/L Normal 136-145 [facility] ([place]) Comment on above: Performed By: #### C BC, ADIFF, ANEU, ABOG, ANSG, HIVRP, MISC #### [address] [address] #### HEPAC, RUBIS, RPR, VARIS #### [address] [address] Urea nitrogen [Mass/Vol] 10.0 mg/dL Normal 8.0-22.0 [facility] ([place]) Comment on above: Performed By: #### C BC, ADIFF, ANEU, ABOG, ANSG, HIVRP, MISC #### [place] [address] #### HEPAC, RUBIS, RPR, VARIS #### [place] [address] [id number] 03-21-2019 Glucose [Mass/Vol] 128 mg/dL Normal 70-139 [facility] ([place]) Comment on above: Performed By: #### C BC, ADIFF, ANEU, ABOG, ANSG, HIVRP, MISC #### [place] [address] #### HEPAC, RUBIS, RPR, VARIS #### [place] [address] .Urinalysis Microscopic (AO) on 02-28-2019 RBC (U) [#/Vol] 0-5 None Seen [facility] ([place]) Comment on above: Performed By: #### C BC, ADIFF, ANEU, ABOG, ANSG, HIVRP, MISC #### [place] [address] #### HEPAC, RUBIS, RPR, VARIS #### [place] [address] UA Bacteria 2+ /hpf [facility] ([place]) Comment on above: Performed By: #### C BC, ADIFF, ANEU, ABOG, ANSG, HIVRP, MISC #### [place] [address] #### HEPAC, RUBIS, RPR, VARIS #### [place] [address] UA Squam Epithelial 5-10 None Seen [facility] ([place]) Comment on above: Performed By: #### C BC, ADIFF, ANEU, ABOG, ANSG, HIVRP, MISC #### [place] [address] #### HEPAC, RUBIS, RPR, VARIS #### [place] [address] UA WBC 15-25 None Seen [facility] ([place]) Comment on above: Performed By: #### C BC, ADIFF, ANEU, ABOG, ANSG, HIVRP, MISC #### [address] [address] #### HEPAC, RUBIS, RPR, VARIS #### [place] [address] TOXSCon 02-28-2019 U Ampheta (AO) Positive [facility] ([place]) Comment on above: Performed By: #### C BC, ADIFF, ANEU, ABOG, ANSG, HIVRP, MISC #### [place] [address] #### HEPAC, RUBIS, RPR, VARIS #### [place] [address] U Irene (AO) Negative [facility] ([place]) Comment on above: Performed By: #### C BC, ADIFF, ANEU, ABOG, ANSG, HIVRP, MISC #### [place] [address] #### HEPAC, RUBIS, RPR, VARIS #### [place] [address] U Bennie (AO) Negative [facility] ([place]) Comment on above: Performed By: #### C BC, ADIFF, ANEU, ABOG, ANSG, HIVRP, MISC #### [place] [address] #### HEPAC, RUBIS, RPR, VARIS #### [place] [address] U Cannab (AO) Negative [facility] ([place]) Comment on above: Performed By: #### C BC, ADIFF, ANEU, ABOG, ANSG, HIVRP, MISC #### [place] [address] #### HEPAC, RUBIS, RPR, VARIS #### [address] [address] U Cocaine (AO) Negative [facility] ([place]) Comment on above: Performed By: #### C BC, ADIFF, ANEU, ABOG, ANSG, HIVRP, MISC #### [address] [address] #### HEPAC, RUBIS, RPR, VARIS #### [address] [address] U Methadone (AO) Negative [facility] ([place]) Comment on above: Performed By: #### C BC, ADIFF, ANEU, ABOG, ANSG, HIVRP, MISC #### [address] [address] #### HEPAC, RUBIS, RPR, VARIS #### [address] [address] U PCP (AO) Negative [facility] ([place]) Comment on above: Performed By: #### C BC, ADIFF, ANEU, ABOG, ANSG, HIVRP, MISC #### [place] [address] #### HEPAC, RUBIS, RPR, VARIS #### [address] [address] U TCA (AO) Negative [facility] ([place]) Comment on above: Performed By: #### C BC, ADIFF, ANEU, ABOG, ANSG, HIVRP, MISC #### [place] [address] #### HEPAC, RUBIS, RPR, VARIS #### [address] [address] Urine Opiates (AO) Negative [facility] ([place]) Comment on above: Performed By: #### C BC, ADIFF, ANEU, ABOG, ANSG, HIVRP, MISC #### [address] [address] #### HEPAC, RUBIS, RPR, VARIS #### [place] [address] UAon 02-28-2019 Color (U) Yellow Normal [facility] ([place]) Comment on above: Performed By: #### C BC, ADIFF, ANEU, ABOG, ANSG, HIVRP, MISC #### [place] [address] #### HEPAC, RUBIS, RPR, VARIS #### [place] [address] Glucose (U) [Mass/Vol] Negative Normal Negative [facility] ([place]) Comment on above: Performed By: #### C BC, ADIFF, ANEU, ABOG, ANSG, HIVRP, MISC #### [place] [address] #### HEPAC, RUBIS, RPR, VARIS #### [place] [address] Ketones Ql (U) Negative Normal Negative [facility] ([place]) Comment on above: Performed By: #### C BC, ADIFF, ANEU, ABOG, ANSG, HIVRP, MISC #### [place] [address] #### HEPAC, RUBIS, RPR, VARIS #### [place] [address] UA Appear Clear Normal Clear [facility] ([place]) Comment on above: Performed By: #### C BC, ADIFF, ANEU, ABOG, ANSG, HIVRP, MISC #### [place] [address] #### HEPAC, RUBIS, RPR, VARIS #### [place] [address] UA Blood Trace Negative [facility] ([place]) Comment on above: Performed By: #### C BC, ADIFF, ANEU, ABOG, ANSG, HIVRP, MISC #### [place] [address] #### HEPAC, RUBIS, RPR, VARIS #### [address] [address] UA Leuk Est Large Negative [facility] ([place]) Comment on above: Performed By: #### C BC, ADIFF, ANEU, ABOG, ANSG, HIVRP, MISC #### [place] [address] #### HEPAC, RUBIS, RPR, VARIS #### [place] [address] UA Nitrite Negative Normal Negative [facility] ([place]) Comment on above: Performed By: #### C BC, ADIFF, ANEU, ABOG, ANSG, HIVRP, MISC #### [place] [address] #### HEPAC, RUBIS, RPR, VARIS #### [place] [address] UA pH 6.0 Normal 5.0 - 8.0 [facility] ([place]) Comment on above: Performed By: #### C BC, ADIFF, ANEU, ABOG, ANSG, HIVRP, MISC #### [place] [address] #### HEPAC, RUBIS, RPR, VARIS #### [place] [address] UA Protein Trace Normal Negative [facility] ([place]) Comment on above: Performed By: #### C BC, ADIFF, ANEU, ABOG, ANSG, HIVRP, MISC #### [place] [address] #### HEPAC, RUBIS, RPR, VARIS #### [place] [address] UA Spec Grav 1.010 1.015-1.025 [facility] ([place]) Comment on above: Performed By: #### C BC, ADIFF, ANEU, ABOG, ANSG, HIVRP, MISC #### [place] [address] #### HEPAC, RUBIS, RPR, VARIS #### [place] [address] UA Specimen Type Clean Catch Normal [facility] ([place]) Comment on above: Performed By: #### C BC, ADIFF, ANEU, ABOG, ANSG, HIVRP, MISC #### [address] [address] #### HEPAC, RUBIS, RPR, VARIS #### [place] [address] UA Urobilinogen 1.0 E.U./dL Normal 0.2-1.0 [facility] ([place]) Comment on above: Performed By: #### C BC, ADIFF, ANEU, ABOG, ANSG, HIVRP, MISC #### [address] [address] #### HEPAC, RUBIS, RPR, VARIS #### [place] [address] Urobilinogen Qn (U) Negative Normal Negative [facility] ([place]) Comment on above: Performed By: #### C BC, ADIFF, ANEU, ABOG, ANSG, HIVRP, MISC #### [address] [address] #### HEPAC, RUBIS, RPR, VARIS #### [place] [address] CURon 02-26-2019 CUR . MICRO - Microbiology PROCEDURE: Urine Culture [*1] SOURCE: Urine, Clean Catch BODY SITE: COLLECTED DATE/TIME: 02/24/2019 02:10 EDT RECEIVED DATE/TIME: 02/24/2019 16:07 EDT START DATE/TIME: 02/24/2019 16:07 EDT FREE TEXT SOURCE: FINAL REPORTS Final Report [] Verified Date/Time/Personnel: 02/26/2019 13:57 EDT >100,000 organisms per mL Escherichia coli PRELIMINARY REPORTS Preliminary Report [] Verified Date/Time/Personnel: 02/25/2019 14:13 EDT >100,000 organisms per mL Gram Negative Rods Final identification and YONG to follow. SUSCEPTIBILITY RESULTS Escherichia coli Antibiotic YONG Dilutn YONG Interp Ampicillin <=8 Susceptible Cefazolin <=8 Susceptible Ciprofloxacin <=1 Susceptible Gentamicin <=4 Susceptible Levofloxacin <=2 Susceptible Meropenem <=1 Susceptible Nitrofurantoin <=32 Susceptible Trimethoprim/ <=2/38 Susceptible Sulfa Performing Locations *1: This test was performed at: [facility], [address] [place] [address], [address] [place] [address] ([place]) Comment on above: Performed By: #### C BC, ADIFF, ANEU, ABOG, ANSG, HIVRP, MISC #### [place] [address] #### HEPAC, RUBIS, RPR, VARIS #### [place] [address] .Auto Diffon 02-24-2019 Ammonia (P) [Mass/Vol] 1.00 10 3/mcL Normal 0.15-1.00 [facility] ([place]) Comment on above: Performed By: #### C BC, ADIFF, ANEU, ABOG, ANSG, HIVRP, MISC #### [place] [address] #### HEPAC, RUBIS, RPR, VARIS #### [place] [address] Basophils (Bld) [#/Vol] 0.00 10 3/mcL Normal 0.00-0.19 [facility] ([place]) Comment on above: Performed By: #### C BC, ADIFF, ANEU, ABOG, ANSG, HIVRP, MISC #### [place] [address] #### HEPAC, RUBIS, RPR, VARIS #### [place] [address] Basophils/100 WBC (Bld) 0.2 % Normal 0.0-2.5 [facility] ([place]) Comment on above: Performed By: #### C BC, ADIFF, ANEU, ABOG, ANSG, HIVRP, MISC #### [address] [address] #### HEPAC, RUBIS, RPR, VARIS #### [address] [address] Eosinophils (Bld) [#/Vol] 0.10 10 3/mcL Normal 0.00-0.40 [facility] ([place]) Comment on above: Performed By: #### C BC, ADIFF, ANEU, ABOG, ANSG, HIVRP, MISC #### [address] [address] #### HEPAC, RUBIS, RPR, VARIS #### [address] [address] Eosinophils/100 WBC (Bld) 0.3 % Normal 0.0-7.0 [facility] ([place]) Comment on above: Performed By: #### C BC, ADIFF, ANEU, ABOG, ANSG, HIVRP, MISC #### [place] [address] #### HEPAC, RUBIS, RPR, VARIS #### [address] [address] Lymphocytes (Bld) [#/Vol] 3.90 10 3/mcL High 0.77-3.85 [facility] ([place]) Comment on above: Performed By: #### C BC, ADIFF, ANEU, ABOG, ANSG, HIVRP, MISC #### [address] [address] #### HEPAC, RUBIS, RPR, VARIS #### [address] [address] Lymphocytes/100 WBC (Bld) 18.0 % Normal 10.0-50.0 [facility] ([place]) Comment on above: Performed By: #### C BC, ADIFF, ANEU, ABOG, ANSG, HIVRP, MISC #### [place] [address] #### HEPAC, RUBIS, RPR, VARIS #### [address] [address] Monocytes/100 WBC (Bld) 4.7 % Normal 1.7-13.0 [facility] ([place]) Comment on above: Performed By: #### C BC, ADIFF, ANEU, ABOG, ANSG, HIVRP, MISC #### [address] [address] #### HEPAC, RUBIS, RPR, VARIS #### [address] [address] Neutrophils/100 WBC (Bld) 76.8 % Normal 37.0-80.0 [facility] ([place]) Comment on above: Performed By: #### C BC, ADIFF, ANEU, ABOG, ANSG, HIVRP, MISC #### [address] [address] #### HEPAC, RUBIS, RPR, VARIS #### [address] [address] .GFRon 02-24-2019 GFR Non- 112 ml/min/1.73sqm Normal [facility] ([place]) Comment on above: Result Comment: GFR Population mean for , Non- Americans Ages 20-29 = 116 mL/min/1.73 sq.m. Ages 30-39 = 107 mL/min/1.73 sq.m. Ages 40-49 = 99 mL/min/1.73 sq.m. Ages 50-59 = 93 mL/min/1.73 sq.m. Ages 60-69 = 85 mL/min/1.73 sq.m. Ages 70+ = 75 mL/min/1.73 sq.m. Chronic Kidney Disease: Less than 60 mL/min/1.73 square meters End Stage Renal Disease: Less than 15 mL/min/1.73 square meters Performed By: #### C BC, ADIFF, ANEU, ABOG, ANSG, HIVRP, MISC #### [address] [address] #### HEPAC, RUBIS, RPR, VARIS #### [address] [address] GFR 136 ml/min/1.73sqm Normal [facility] ([place]) Comment on above: Result Comment: GFR Population mean for , Non- Americans Ages 20-29 = 116 mL/min/1.73 sq.m. Ages 30-39 = 107 mL/min/1.73 sq.m. Ages 40-49 = 99 mL/min/1.73 sq.m. Ages 50-59 = 93 mL/min/1.73 sq.m. Ages 60-69 = 85 mL/min/1.73 sq.m. Ages 70+ = 75 mL/min/1.73 sq.m. Chronic Kidney Disease: Less than 60 mL/min/1.73 square meters End Stage Renal Disease: Less than 15 mL/min/1.73 square meters Performed By: #### C BC, ADIFF, ANEU, ABOG, ANSG, HIVRP, MISC #### [address] [address] #### HEPAC, RUBIS, RPR, VARIS #### [place] [address] .NEUABSon 02-24-2019 Neutrophils (Bld) [#/Vol] 16.60 10 3/mcL High 2.85-6.16 [facility] ([place]) Comment on above: Performed By: #### C BC, ADIFF, ANEU, ABOG, ANSG, HIVRP, MISC #### [address] [id number] #### HEPAC, RUBIS, RPR, VARIS #### [place] [id number] .Urinalysis Microscopic (AO) on 02-24-2019 RBC (U) [#/Vol] None Seen Normal None Seen [facility] ([place]) Comment on above: Performed By: #### C BC, ADIFF, ANEU, ABOG, ANSG, HIVRP, MISC #### [address] [address] #### HEPAC, RUBIS, RPR, VARIS #### [place] [address] UA Bacteria 1+ /hpf [facility] ([place]) Comment on above: Performed By: #### C BC, ADIFF, ANEU, ABOG, ANSG, HIVRP, MISC #### [place] [id number] #### HEPAC, RUBIS, RPR, VARIS #### [place] [address] UA Squam Epithelial 5-10 None Seen [facility] ([place]) Comment on above: Performed By: #### C BC, ADIFF, ANEU, ABOG, ANSG, HIVRP, MISC #### [place] [address] #### HEPAC, RUBIS, RPR, VARIS #### [place] [address] UA WBC 5-10 None Seen [facility] ([place]) Comment on above: Performed By: #### C BC, ADIFF, ANEU, ABOG, ANSG, HIVRP, MISC #### [place] [address] #### HEPAC, RUBIS, RPR, VARIS #### [place] [address] ACETAon 02-24-2019 Acetaminophen [Mass/Vol] 0.0 mcg/mL Low 10.0-30.0 [facility] ([place]) Comment on above: Performed By: #### C BC, ADIFF, ANEU, ABOG, ANSG, HIVRP, MISC #### [place] [address] #### HEPAC, RUBIS, RPR, VARIS #### [place] [address] Melva 02-24-2019 Ethanol Level <3 Normal 0-3 [facility] ([place]) Comment on above: Performed By: #### C BC, ADIFF, ANEU, ABOG, ANSG, HIVRP, MISC #### [address] [address] #### HEPAC, RUBIS, RPR, VARIS #### [address] [address] CBCon 02-24-2019 Erythrocyte distribution width (RBC) [Ratio] 12.9 % Normal 11.5-14.5 [facility] ([place]) Comment on above: Performed By: #### C BC, ADIFF, ANEU, ABOG, ANSG, HIVRP, MISC #### [address] [address] #### HEPAC, RUBIS, RPR, VARIS #### [address] [address] Hematocrit (Bld) [Volume fraction] 38.1 % Normal 37.0-47.0 [facility] ([place]) Comment on above: Performed By: #### C BC, ADIFF, ANEU, ABOG, ANSG, HIVRP, MISC #### [place] [address] #### HEPAC, RUBIS, RPR, VARIS #### [address] [address] Hemoglobin (Bld) [Mass/Vol] 13.2 G/dL Normal 12.0-16.0 [facility] ([place]) Comment on above: Performed By: #### C BC, ADIFF, ANEU, ABOG, ANSG, HIVRP, MISC #### [place] [address] #### HEPAC, RUBIS, RPR, VARIS #### [address] [address] MCH (RBC) [Entitic mass] 30.6 pg Normal 27.0-31.2 [facility] ([place]) Comment on above: Performed By: #### C BC, ADIFF, ANEU, ABOG, ANSG, HIVRP, MISC #### [place] [address] #### HEPAC, RUBIS, RPR, VARIS #### [address] [address] MCHC (RBC) [Mass/Vol] 34.7 G/dL Normal 33.0-37.0 [facility] ([place]) Comment on above: Performed By: #### C BC, ADIFF, ANEU, ABOG, ANSG, HIVRP, MISC #### [place] [address] #### HEPAC, RUBIS, RPR, VARIS #### [address] [address] MCV (RBC) [Entitic vol] 88.1 fL Normal 80.0-94.0 [facility] ([place]) Comment on above: Performed By: #### C BC, ADIFF, ANEU, ABOG, ANSG, HIVRP, MISC #### [place] [address] #### HEPAC, RUBIS, RPR, VARIS #### [place] [address] Platelet mean volume (Bld) [Entitic vol] 7.4 fL Normal 7.4-10.4 [facility] ([place]) Comment on above: Performed By: #### C BC, ADIFF, ANEU, ABOG, ANSG, HIVRP, MISC #### [place] [address] #### HEPAC, RUBIS, RPR, VARIS #### [place] [id number] Platelets (Bld) [#/Vol] 305 10 3/mcL Normal 130-400 [facility] ([place]) Comment on above: Performed By: #### C BC, ADIFF, ANEU, ABOG, ANSG, HIVRP, MISC #### [place] [address] #### HEPAC, RUBIS, RPR, VARIS #### [place] [id number] RBC (Bld) [#/Vol] 4.33 10 6/mcL Normal 4.20-5.40 [facility] ([place]) Comment on above: Performed By: #### C BC, ADIFF, ANEU, ABOG, ANSG, HIVRP, MISC #### [address] [address] #### HEPAC, RUBIS, RPR, VARIS #### [address] [address] WBC (Bld) [#/Vol] 21.60 10 3/mcL Critically abnormal 4.60-10.80 [facility] ([place]) Comment on above: Performed By: #### C BC, ADIFF, ANEU, ABOG, ANSG, HIVRP, MISC #### [place] [address] #### HEPAC, RUBIS, RPR, VARIS #### [place] [address] CMPon 02-24-2019 Albumin [Mass/Vol] 2.8 G/dL Low 3.5-5.0 [facility] ([place]) Comment on above: Performed By: #### C BC, ADIFF, ANEU, ABOG, ANSG, HIVRP, MISC #### [place] [address] #### HEPAC, RUBIS, RPR, VARIS #### [address] [address] Albumin/Globulin [Mass ratio] 0.7 {ratio} Low 1.1-2.5 [facility] ([place]) Comment on above: Performed By: #### C BC, ADIFF, ANEU, ABOG, ANSG, HIVRP, MISC #### [place] [address] #### HEPAC, RUBIS, RPR, VARIS #### [address] [address] ALP [Catalytic activity/Vol] 135 U/L Normal 40-135 [facility] ([place]) Comment on above: Performed By: #### C BC, ADIFF, ANEU, ABOG, ANSG, HIVRP, MISC #### [place] [address] #### HEPAC, RUBIS, RPR, VARIS #### [address] [address] ALT [Catalytic activity/Vol] 15 U/L Normal 10-35 [facility] ([place]) Comment on above: Performed By: #### C BC, ADIFF, ANEU, ABOG, ANSG, HIVRP, MISC #### [place] [address] #### HEPAC, RUBIS, RPR, VARIS #### [address] [address] AST [Catalytic activity/Vol] 13 U/L Normal 10-40 [facility] ([place]) Comment on above: Performed By: #### C BC, ADIFF, ANEU, ABOG, ANSG, HIVRP, MISC #### [place] [address] #### HEPAC, RUBIS, RPR, VARIS #### [address] [address] Bili Total 0.2 mg/dL Normal 0.2-1.0 [facility] ([place]) Comment on above: Performed By: #### C BC, ADIFF, ANEU, ABOG, ANSG, HIVRP, MISC #### [place] [address] #### HEPAC, RUBIS, RPR, VARIS #### [address] [address] Calcium [Mass/Vol] 9.1 mg/dL Normal 8.4-10.2 [facility] ([place]) Comment on above: Performed By: #### C BC, ADIFF, ANEU, ABOG, ANSG, HIVRP, MISC #### [place] [address] #### HEPAC, RUBIS, RPR, VARIS #### [address] [address] Chloride [Moles/Vol] 104 mmol/L Normal 98-107 [facility] ([place]) Comment on above: Performed By: #### C BC, ADIFF, ANEU, ABOG, ANSG, HIVRP, MISC #### [address] [address] #### HEPAC, RUBIS, RPR, VARIS #### [place] [address] CO2 [Moles/Vol] 23 mmol/L Normal 22-29 [facility] ([place]) Comment on above: Performed By: #### C BC, ADIFF, ANEU, ABOG, ANSG, HIVRP, MISC #### [place] [address] #### HEPAC, RUBIS, RPR, VARIS #### [place] [address] Creatinine [Mass/Vol] 0.64 mg/dL Normal 0.55-1.02 [facility] ([place]) Comment on above: Performed By: #### C BC, ADIFF, ANEU, ABOG, ANSG, HIVRP, MISC #### [place] [address] #### HEPAC, RUBIS, RPR, VARIS #### [place] [address] Electrolyte Balance 13.0 mEq/L Normal [facility] ([place]) Comment on above: Performed By: #### C BC, ADIFF, ANEU, ABOG, ANSG, HIVRP, MISC #### [place] [address] #### HEPAC, RUBIS, RPR, VARIS #### [place] [address] Globulin (S) [Mass/Vol] 3.9 G/dL Normal [facility] ([place]) Comment on above: Performed By: #### C BC, ADIFF, ANEU, ABOG, ANSG, HIVRP, MISC #### [address] [address] #### HEPAC, RUBIS, RPR, VARIS #### [address] [address] Glucose [Mass/Vol] 120 mg/dL High 70-105 [facility] ([place]) Comment on above: Performed By: #### C BC, ADIFF, ANEU, ABOG, ANSG, HIVRP, MISC #### [place] [address] #### HEPAC, RUBIS, RPR, VARIS #### [address] [address] Potassium [Moles/Vol] 3.8 mmol/L Normal 3.5-5.1 [facility] ([place]) Comment on above: Performed By: #### C BC, ADIFF, ANEU, ABOG, ANSG, HIVRP, MISC #### [place] [address] #### HEPAC, RUBIS, RPR, VARIS #### [address] [address] Protein [Mass/Vol] 6.7 G/dL Normal 6.4-8.2 [facility] ([place]) Comment on above: Performed By: #### C BC, ADIFF, ANEU, ABOG, ANSG, HIVRP, MISC #### [place] [address] #### HEPAC, RUBIS, RPR, VARIS #### [address] [address] Sodium [Moles/Vol] 140 mmol/L Normal 136-145 [facility] ([place]) Comment on above: Performed By: #### C BC, ADIFF, ANEU, ABOG, ANSG, HIVRP, MISC #### [place] [address] #### HEPAC, RUBIS, RPR, VARIS #### [address] [address] Urea nitrogen [Mass/Vol] 10 mg/dL Normal 7-18 [facility] ([place]) Comment on above: Performed By: #### C BC, ADIFF, ANEU, ABOG, ANSG, HIVRP, MISC #### [address] [address] #### HEPAC, RUBIS, RPR, VARIS #### [place] [address] Urea nitrogen/Creatinine [Mass ratio] 16 ratio Normal - [facility] ([place]) Comment on above: Performed By: #### C BC, ADIFF, ANEU, ABOG, ANSG, HIVRP, MISC #### [place] [address] #### HEPAC, RUBIS, RPR, VARIS #### [place] [address] SALon 02-24-2019 Salicylate Level 2.5 mg/dL Low 2.8-20.0 [facility] ([place]) Comment on above: Performed By: #### C BC, ADIFF, ANEU, ABOG, ANSG, HIVRP, MISC #### [place] [address] #### HEPAC, RUBIS, RPR, VARIS #### [place] [address] TOXSCon 02-24-2019 U Ampheta (AO) Negative [facility] ([place]) Comment on above: Performed By: #### C BC, ADIFF, ANEU, ABOG, ANSG, HIVRP, MISC #### [place] [address] #### HEPAC, RUBIS, RPR, VARIS #### [place] [address] U Irene (AO) Negative Normal [facility] ([place]) Comment on above: Performed By: #### C BC, ADIFF, ANEU, ABOG, ANSG, HIVRP, MISC #### [place] [address] #### HEPAC, RUBIS, RPR, VARIS #### [address] [address] U Bennie (AO) Negative [facility] ([place]) Comment on above: Performed By: #### C BC, ADIFF, ANEU, ABOG, ANSG, HIVRP, MISC #### [address] [address] #### HEPAC, RUBIS, RPR, VARIS #### [address] [address] U Cannab (AO) Negative [facility] ([place]) Comment on above: Performed By: #### C BC, ADIFF, ANEU, ABOG, ANSG, HIVRP, MISC #### [place] [address] #### HEPAC, RUBIS, RPR, VARIS #### [place] [phone] U Cocaine (AO) Negative [facility] ([place]) Comment on above: Performed By: #### C BC, ADIFF, ANEU, ABOG, ANSG, HIVRP, MISC #### [place] [address] #### HEPAC, RUBIS, RPR, VARIS #### [address] [address] U Methadone (AO) Negative [facility] ([place]) Comment on above: Performed By: #### C BC, ADIFF, ANEU, ABOG, ANSG, HIVRP, MISC #### [place] [address] #### HEPAC, RUBIS, RPR, VARIS #### [address] [address] U PCP (AO) Negative [facility] ([place]) Comment on above: Performed By: #### C BC, ADIFF, ANEU, ABOG, ANSG, HIVRP, MISC #### [place] [address] #### HEPAC, RUBIS, RPR, VARIS #### [address] [address] U TCA (AO) Negative Normal [facility] ([place]) Comment on above: Performed By: #### C BC, ADIFF, ANEU, ABOG, ANSG, HIVRP, MISC #### [place] [address] #### HEPAC, RUBIS, RPR, VARIS #### [place] [address] Urine Opiates (AO) Negative Normal [facility] ([place]) Comment on above: Performed By: #### C BC, ADIFF, ANEU, ABOG, ANSG, HIVRP, MISC #### [place] [address] #### HEPAC, RUBIS, RPR, VARIS #### [place] [address] UAon 02-24-2019 Color (U) Yellow Normal [facility] ([place]) Comment on above: Performed By: #### C BC, ADIFF, ANEU, ABOG, ANSG, HIVRP, MISC #### [place] [address] #### HEPAC, RUBIS, RPR, VARIS #### [place] [address] Glucose (U) [Mass/Vol] Negative Normal Negative [facility] ([place]) Comment on above: Performed By: #### C BC, ADIFF, ANEU, ABOG, ANSG, HIVRP, MISC #### [place] [address] #### HEPAC, RUBIS, RPR, VARIS #### [place] [address] Ketones Ql (U) Trace Negative [facility] ([place]) Comment on above: Performed By: #### C BC, ADIFF, ANEU, ABOG, ANSG, HIVRP, MISC #### [place] [address] #### HEPAC, RUBIS, RPR, VARIS #### [place] [address] UA Appear Clear Normal Clear [facility] ([place]) Comment on above: Performed By: #### C BC, ADIFF, ANEU, ABOG, ANSG, HIVRP, MISC #### [place] [address] #### HEPAC, RUBIS, RPR, VARIS #### [place] [address] UA Blood Negative Normal Negative [facility] ([place]) Comment on above: Performed By: #### C BC, ADIFF, ANEU, ABOG, ANSG, HIVRP, MISC #### [place] [address] #### HEPAC, RUBIS, RPR, VARIS #### [place] [address] UA Leuk Est Trace Negative [facility] ([place]) Comment on above: Performed By: #### C BC, ADIFF, ANEU, ABOG, ANSG, HIVRP, MISC #### [place] [address] #### HEPAC, RUBIS, RPR, VARIS #### [place] [address] UA Nitrite Negative Normal Negative [facility] ([place]) Comment on above: Performed By: #### C BC, ADIFF, ANEU, ABOG, ANSG, HIVRP, MISC #### [place] [address] #### HEPAC, RUBIS, RPR, VARIS #### [place] [address] UA pH 5.5 Normal 5.0 - 8.0 [facility] ([place]) Comment on above: Performed By: #### C BC, ADIFF, ANEU, ABOG, ANSG, HIVRP, MISC #### [place] [address] #### HEPAC, RUBIS, RPR, VARIS #### [place] [address] UA Protein Trace Normal Negative [facility] ([place]) Comment on above: Performed By: #### C BC, ADIFF, ANEU, ABOG, ANSG, HIVRP, MISC #### [place] [address] #### HEPAC, RUBIS, RPR, VARIS #### [place] [address] UA Spec Grav >=1.030 1.015-1.025 [facility] ([place]) Comment on above: Performed By: #### C BC, ADIFF, ANEU, ABOG, ANSG, HIVRP, MISC #### [place] [address] #### HEPAC, RUBIS, RPR, VARIS #### [place] [address] UA Specimen Type Clean Catch Normal [facility] ([place]) Comment on above: Performed By: #### C BC, ADIFF, ANEU, ABOG, ANSG, HIVRP, MISC #### [place] [address] #### HEPAC, RUBIS, RPR, VARIS #### [place] [address] UA Urobilinogen 0.2 E.U./dL Normal 0.2-1.0 [facility] ([place]) Comment on above: Performed By: #### C BC, ADIFF, ANEU, ABOG, ANSG, HIVRP, MISC #### [place] [address] #### HEPAC, RUBIS, RPR, VARIS #### [place] [address] Urobilinogen Qn (U) Negative Normal Negative [facility] ([place]) Comment on above: Performed By: #### C BC, ADIFF, ANEU, ABOG, ANSG, HIVRP, MISC #### [address] [address] #### HEPAC, RUBIS, RPR, VARIS #### [address] [address] MISCon 11-15-2018 Misc. Send Out See Comments Normal [facility] ([place]) Comment on above: Order Comment: AFP m aternal screen Result Comment: See Seperate Report Performed By: #### C BC, ADIFF, ANEU, ABOG, ANSG, HIVRP, MISC #### [address] [address] #### HEPAC, RUBIS, RPR, VARIS #### [place] [id number] VARISon 11-15-[address] Positive Normal [facility] ([place]) Comment on above: Result Comment: This immune status assay detects antibody to Varicella Zoster virus. Interpret results in conjunction with clinical history. Positive: Reactive for antibodies to Varicella IgG. If clinically indicated, order Varicella IGM to rule out recent infection. Equivocal: Equivocal for antibodies to Varicella IgG. Suggest repeat testing in 10-14 days. Negative: Non-reactive for antibodies to Varicella IgG. Sera will be held 4-6 weeks if further testing is required. Performed By: #### C BC, ADIFF, ANEU, ABOG, ANSG, HIVRP, MISC #### [address] [address] #### HEPAC, RUBIS, RPR, VARIS #### [address] [address] RPRon 11-12-2018 Reagin Ab RPR Ql (S) Non-Reactive Normal Non-Reactive [facility] ([place]) Comment on above: Result Comment: The RPR test is a non-treponemal assay useful as an aid in the diagnosis of primary and secondary syphilis. It converts to positive generally within 2 weeks after the appearance of a lesion. This test is also useful for monitoring response to antibiotic therapy. A positive RPR screening test will be followed by the FTA ABS test. False positive RPR tests may occur in 1) patients with underlying autoimmune disorders, 2) elderly patients, 3) , and 4) other conditions with abnormal serum globulins. Performed By: #### C BC, ADIFF, ANEU, ABOG, ANSG, HIVRP, MISC #### [place] [address] #### HEPAC, RUBIS, RPR, VARIS #### [place] [address] RUBISon 11-12-[address] Positive Normal Positive [facility] ([place]) Comment on above: Result Comment: This immune status assay detects IgM and/or IgG antibody to Rubella. Interpret results in conjunction with clinical history. POS: Antibody detected; exposure at undetermined recent or distant time. If clinically indicated, order Rubella IGM to rule out recent infection. NEG: No antibody detected. Performed By: #### C BC, ADIFF, ANEU, ABOG, ANSG, HIVRP, MISC #### [place] [address] #### HEPAC, RUBIS, RPR, VARIS #### [place] [address] .Auto Diffon 11-11-2018 Ammonia (P) [Mass/Vol] 0.60 10 3/mcL Normal 0.15-1.00 [facility] ([place]) Comment on above: Performed By: #### C BC, ADIFF, ANEU, ABOG, ANSG, HIVRP, MISC #### [place] [address] #### HEPAC, RUBIS, RPR, VARIS #### [place] [address] Basophils (Bld) [#/Vol] 0.00 10 3/mcL Normal 0.00-0.19 [facility] ([place]) Comment on above: Performed By: #### C BC, ADIFF, ANEU, ABOG, ANSG, HIVRP, MISC #### [place] [address] #### HEPAC, RUBIS, RPR, VARIS #### [address] [address] Basophils/100 WBC (Bld) 0.2 % Normal 0.0-2.5 [facility] ([place]) Comment on above: Performed By: #### C BC, ADIFF, ANEU, ABOG, ANSG, HIVRP, MISC #### [address] [address] #### HEPAC, RUBIS, RPR, VARIS #### [address] [address] Eosinophils (Bld) [#/Vol] 0.10 10 3/mcL Normal 0.00-0.40 [facility] ([place]) Comment on above: Performed By: #### C BC, ADIFF, ANEU, ABOG, ANSG, HIVRP, MISC #### [place] [address] #### HEPAC, RUBIS, RPR, VARIS #### [address] [address] Eosinophils/100 WBC (Bld) 1.1 % Normal 0.0-7.0 [facility] ([place]) Comment on above: Performed By: #### C BC, ADIFF, ANEU, ABOG, ANSG, HIVRP, MISC #### [address] [address] #### HEPAC, RUBIS, RPR, VARIS #### [address] [address] Lymphocytes (Bld) [#/Vol] 3.00 10 3/mcL Normal 0.77-3.85 [facility] ([place]) Comment on above: Performed By: #### C BC, ADIFF, ANEU, ABOG, ANSG, HIVRP, MISC #### [place] [address] #### HEPAC, RUBIS, RPR, VARIS #### [address] [address] Lymphocytes/100 WBC (Bld) 23.3 % Normal 10.0-50.0 [facility] ([place]) Comment on above: Performed By: #### C BC, ADIFF, ANEU, ABOG, ANSG, HIVRP, MISC #### [address] [address] #### HEPAC, RUBIS, RPR, VARIS #### [address] [address] Monocytes/100 WBC (Bld) 4.9 % Normal 1.7-13.0 [facility] ([place]) Comment on above: Performed By: #### C BC, ADIFF, ANEU, ABOG, ANSG, HIVRP, MISC #### [place] [address] #### HEPAC, RUBIS, RPR, VARIS #### [address] [address] Neutrophils/100 WBC (Bld) 70.5 % Normal 37.0-80.0 [facility] ([place]) Comment on above: Performed By: #### C BC, ADIFF, ANEU, ABOG, ANSG, HIVRP, MISC #### [address] [address] #### HEPAC, RUBIS, RPR, VARIS #### [address] [address] .NEUABSon 11-11-2018 Neutrophils (Bld) [#/Vol] 9.00 10 3/mcL High 2.85-6.16 [facility] ([place]) Comment on above: Performed By: #### C BC, ADIFF, ANEU, ABOG, ANSG, HIVRP, MISC #### [address] [address] #### HEPAC, RUBIS, RPR, VARIS #### [address] [address] CBCon 11-11-2018 Erythrocyte distribution width (RBC) [Ratio] 12.7 % Normal 11.5-14.5 [facility] ([place]) Comment on above: Performed By: #### C BC, ADIFF, ANEU, ABOG, ANSG, HIVRP, MISC #### [address] [address] #### HEPAC, RUBIS, RPR, VARIS #### [address] [address] Hematocrit (Bld) [Volume fraction] 35.8 % Low 37.0-47.0 [facility] ([place]) Comment on above: Performed By: #### C BC, ADIFF, ANEU, ABOG, ANSG, HIVRP, MISC #### [place] [address] #### HEPAC, RUBIS, RPR, VARIS #### [address] [address] Hemoglobin (Bld) [Mass/Vol] 12.7 G/dL Normal 12.0-16.0 [facility] ([place]) Comment on above: Performed By: #### C BC, ADIFF, ANEU, ABOG, ANSG, HIVRP, MISC #### [place] [address] #### HEPAC, RUBIS, RPR, VARIS #### [address] [address] MCH (RBC) [Entitic mass] 31.7 pg High 27.0-31.2 [facility] ([place]) Comment on above: Performed By: #### C BC, ADIFF, ANEU, ABOG, ANSG, HIVRP, MISC #### [place] [address] #### HEPAC, RUBIS, RPR, VARIS #### [address] [address] MCHC (RBC) [Mass/Vol] 35.5 G/dL Normal 33.0-37.0 [facility] ([place]) Comment on above: Performed By: #### C BC, ADIFF, ANEU, ABOG, ANSG, HIVRP, MISC #### [place] [address] #### HEPAC, RUBIS, RPR, VARIS #### [address] [address] MCV (RBC) [Entitic vol] 89.2 fL Normal 80.0-94.0 [facility] ([place]) Comment on above: Performed By: #### C BC, ADIFF, ANEU, ABOG, ANSG, HIVRP, MISC #### [place] [address] #### HEPAC, RUBIS, RPR, VARIS #### [address] [address] Platelet mean volume (Bld) [Entitic vol] 7.8 fL Normal 7.4-10.4 [facility] ([place]) Comment on above: Performed By: #### C BC, ADIFF, ANEU, ABOG, ANSG, HIVRP, MISC #### [place] [address] #### HEPAC, RUBIS, RPR, VARIS #### [address] [address] Platelets (Bld) [#/Vol] 296 10 3/mcL Normal 130-400 [facility] ([place]) Comment on above: Performed By: #### C BC, ADIFF, ANEU, ABOG, ANSG, HIVRP, MISC #### [place] [address] #### HEPAC, RUBIS, RPR, VARIS #### [address] [address] RBC (Bld) [#/Vol] 4.02 10 6/mcL Low 4.20-5.40 [facility] ([place]) Comment on above: Performed By: #### C BC, ADIFF, ANEU, ABOG, ANSG, HIVRP, MISC #### [place] [address] #### HEPAC, RUBIS, RPR, VARIS #### [address] [address] WBC (Bld) [#/Vol] 12.70 10 3/mcL High 4.60-10.80 [facility] ([place]) Comment on above: Performed By: #### C BC, ADIFF, ANEU, ABOG, ANSG, HIVRP, MISC #### [place] [address] #### HEPAC, RUBIS, RPR, VARIS #### [place] [phone] Gel ABOon 11-11-2018 ABO/Rh Interp Positive [facility] ([place]) Comment on above: Performed By: #### C BC, ADIFF, ANEU, ABOG, ANSG, HIVRP, MISC #### [place] [address] #### HEPAC, RUBIS, RPR, VARIS #### [place] [phone] Gel ABSon 11-11-2018 Antibody Screen Gel Negative [facility] ([place]) Comment on above: Performed By: #### C BC, ADIFF, ANEU, ABOG, ANSG, HIVRP, MISC #### [place] [address] #### HEPAC, RUBIS, RPR, VARIS #### [place] [address] HEPACon 11-11-2018 Hep A IgM Ab Negative Normal Negative [facility] ([place]) Comment on above: Performed By: #### C BC, ADIFF, ANEU, ABOG, ANSG, HIVRP, MISC #### [place] [address] #### HEPAC, RUBIS, RPR, VARIS #### [place] [address] Hep A IgM Ab Int No serological evide nce of a current Hepatitis A infection. [facility] ([place]) Comment on above: Performed By: #### C BC, ADIFF, ANEU, ABOG, ANSG, HIVRP, MISC #### [place] [address] #### HEPAC, RUBIS, RPR, VARIS #### [place] [phone] Hep B Core IgM Ab Negative Normal Negative [facility] ([place]) Comment on above: Result Comment: No s erological evidence of ACUTE Hepatitis B infection. Performed By: #### C BC, ADIFF, ANEU, ABOG, ANSG, HIVRP, MISC #### [place] [address] #### HEPAC, RUBIS, RPR, VARIS #### [address] [address] Hep B Surf Ag Negative Normal Negative [facility] ([place]) Comment on above: Performed By: #### C BC, ADIFF, ANEU, ABOG, ANSG, HIVRP, MISC #### [place] [address] #### HEPAC, RUBIS, RPR, VARIS #### [place] [phone] Hep C Ab Reactive Negative [facility] ([place]) Comment on above: Performed By: #### C BC, ADIFF, ANEU, ABOG, ANSG, HIVRP, MISC #### [place] [address] #### HEPAC, RUBIS, RPR, VARIS #### [place] [phone] Hep C Ab Int This positive specim en showed an ENRIQUETA Osdkqx-oz-Nptmms ratio of >/=8.0 which is highly predictive (>/=95%) of the true anti-HCV status. The HCV ENRIQUETA test system detects anti-HCV in human serum or plasma. The presence of anti-HCV may be indicative of recent and/or past infection by Hepatitis C Virus. Normal [facility] ([place]) Comment on above: Performed By: #### C BC, ADIFF, ANEU, ABOG, ANSG, HIVRP, MISC #### [place] [id number] #### HEPAC, RUBIS, RPR, VARIS #### [place] [address] HIVRPon 11-11-2018 HIV p24 Antigen Non-Reactive Normal Non-Reactive [facility] ([place]) Comment on above: Performed By: #### C BC, ADIFF, ANEU, ABOG, ANSG, HIVRP, MISC #### [place] [id number] #### HEPAC, RUBIS, RPR, VARIS #### [place] [address] HIV P24 Int Non-reactive [facility] ([place]) Comment on above: Performed By: #### C BC, ADIFF, ANEU, ABOG, ANSG, HIVRP, MISC #### [place] [id number] #### HEPAC, RUBIS, RPR, VARIS #### [place] [address] Rapid HIV 1/2 Antibody Non-Reactive Normal Non-Reactiv e [facility] ([place]) Comment on above: Performed By: #### C BC, ADIFF, ANEU, ABOG, ANSG, HIVRP, MISC #### [place] [id number] #### HEPAC, RUBIS, RPR, VARIS #### [place] [address] RHIV 1/2 Ab Int Non-Reactive [facility] ([place]) Comment on above: Performed By: #### C BC, ADIFF, ANEU, ABOG, ANSG, HIVRP, MISC #### [place] [id number] #### HEPAC, RUBIS, RPR, VARIS #### [place] [id number] Vital Signs Date Time Vital Sign Value Performing Clinician Facility 03-09-2025 17:47-0400 Body temperature 97.59 [degF] Christos Arroyo APRN.[employer] Work Phone: [facility] 03-09-2025 17:47-0400 Body weight 119 kg Christos Pendlebury [employer] Work Phone: [facility] 03-09-2025 17:47-0400 Diastolic blood pressure 78 mm[Hg] Christos Pendlebury [employer]WALL MET[employer] ST[employer] WORKER.[employer] Work Phone: [facility] 03-09-2025 17:47-0400 Heart rate 70 /min Christos Pendlebury [employer] WORK[employer] Work Phone: [facility] 03-09-2025 17:47-0400 Respiratory rate 18 /min Christos Pendlebury [employer] WORKER.[employer] Work Phone: [facility] 03-09-2025 17:47-0400 SaO2% (BldA) [Mass fraction] 100 % Christos Pendlebury [employer] WORK[employer] Work Phone: [facility] 03-09-2025 17:47-0400 Systolic blood pressure 112 mm[Hg] Christos Pendlebury [employer]WALL [employer] ST[employer] WORKER.[employer] Work Phone: [facility] 08-16-2024 16:03-0500 Body temperature 98.1 [degF] Christos Pendlebury [employer] WORKER.[employer] Work Phone: [facility] 08-16-2024 16:03-0500 Body weight 120.5 kg Christos Pendlebury [employer] WORKER.[employer] Work Phone: [facility] 08-16-2024 16:03-0500 Diastolic blood pressure 62 mm[Hg] Christos Pendlebury [employer]WALL [employer] ST[employer] WORKER.[employer] Work Phone: [facility] 08-16-2024 16:03-0500 Heart rate 71 /min Christos Pendlebury [employer] WORKER.[employer] Work Phone: [facility] 08-16-2024 16:03-0500 Respiratory rate 16 /min Christos Pendlebury [employer]WALL [employer] ST[employer] WORKER.[employer] Work Phone: [facility] 08-16-2024 16:03-0500 SaO2% (BldA) [Mass fraction] 96 % Christos Pendlebury [employer] WORKER.[employer] Work Phone: [facility] 08-16-2024 16:03-0500 Systolic blood pressure 102 mm[Hg] Christos Arroyo [employer]WALL [employer] ST[employer] WORKER.[employer] Work Phone: [facility] 07-21-2024 17:59-0400 Body temperature 98.91 [degF] Delicia Jha [employer]WALL [employer] WORKER.[employer] Work Phone: [facility] 07-21-2024 17:59-0400 Body weight 122.4 kg Delicia Jha [employer]ALL [employer] WORKER.[employer] Work Phone: [facility] 07-21-2024 17:59-0400 Diastolic blood pressure 68 mm[Hg] Delicia Jha [employer] WORKER.[employer] Work Phone: [facility] 07-21-2024 17:59-0400 Heart rate 90 /min Delicia Jha [employer]ALL [employer] ST[employer] WORKER.[employer] Work Phone: [facility] 07-21-2024 17:59-0400 Respiratory rate 16 /min Delicia Jha [employer]WALL [employer] WORKER.[employer] Work Phone: [facility] 07-21-2024 17:59-0400 SaO2% (BldA) [Mass fraction] 98 % Delicia Jha [employer] WORKER.[employer] Work Phone: [facility] 07-21-2024 17:59-0400 Systolic blood pressure 102 mm[Hg] Delicia Jha [employer] WORKER.[employer] Work Phone: [facility] 09-07-2023 14:48-0500 Body temperature 98.2 [degF] Delicia Jha [employer] WORKER.[employer] Work Phone: [facility] 09-07-2023 14:48-0500 Body weight 111.86 kg Delicia Jha [employer] WORKER.[employer] Work Phone: [facility] 09-07-2023 14:48-0500 Diastolic blood pressure 82 mm[Hg] Delicia Jha [employer] WORKER.[employer] Work Phone: [facility] 09-07-2023 14:48-0500 Heart rate 82 /min Delicia Jha [employer]WALL [employer] ST[employer] WORKER.[employer] Work Phone: [facility] 09-07-2023 14:48-0500 Respiratory rate 18 /min Delicia Jha [employer]ALL [employer] WORKER.[employer] Work Phone: [facility] 09-07-2023 14:48-0500 SaO2% (BldA) [Mass fraction] 100 % Delicia Jha [employer] WORKER.[employer] Work Phone: [facility] 09-07-2023 14:48-0500 Systolic blood pressure 118 mm[Hg] Delicia Jha [employer]ALL [employer] WORKER.[employer] Work Phone: [facility] 12-23-2022 10:04-0400 Body height 165.1 cm [facility] 12-23-2022 10:04-0400 Body mass index (BMI) [Ratio] 39.7 kg/m2 [facility] 12-23-2022 10:04-0400 Body temperature 97 [degF] [facility] 12-23-2022 10:04-0400 Body weight 108.4 kg [facility] 12-23-2022 10:04-0400 Diastolic blood pressure 96 mm[Hg] [facility] 12-23-2022 10:04-0400 Heart rate 87 /min [facility] 12-23-2022 10:04-0400 Respiratory rate 14 /min [facility] 12-23-2022 10:04-0400 SaO2% (BldA) [Mass fraction] 96 % [facility] 12-23-2022 10:04-0400 Systolic blood pressure 134 mm[Hg] [facility] 12-22-2022 18:02-0400 Body temperature 99.7 [degF] Maty Reinoso APRN.[employer] Work Phone: [facility] 12-22-2022 18:02-0400 Body weight 107.96 kg Maty Reinoso APRN.[employer] Work Phone: [facility] 12-22-2022 18:02-0400 Diastolic blood pressure 78 mm[Hg] Maty Reinoso APRN.[employer] Work Phone: [facility] 12-22-2022 18:02-0400 Heart rate 122 /min Maty Reinoso APRN.[employer] Work Phone: [facility] 12-22-2022 18:02-0400 Respiratory rate 18 /min Maty Reinoso APRN.[employer] Work Phone: [facility] 12-22-2022 18:02-0400 SaO2% (BldA) [Mass fraction] 98 % Maty Reinoso APRN.[employer] Work Phone: [facility] 12-22-2022 18:02-0400 Systolic blood pressure 122 mm[Hg] Maty Reinoso APRN.[employer] Work Phone: [facility] 05-03-2022 19:15-0400 Body temperature 96.26 [degF] RODOLFO PLEITEZ MD [facility] 05-03-2022 19:15-0400 Diastolic blood pressure 79 mm[Hg] RODOLFO PLEITEZ MD [facility] 05-03-2022 19:15-0400 Heart rate 116 /min RODOLFO PLEITEZ MD [facility] 05-03-2022 19:15-0400 Mean blood pressure 89 mm[Hg] RODOLFO PLEITEZ MD [facility] 05-03-2022 19:15-0400 Respiratory rate 18 /min RODOLFO PLEITEZ MD [facility] 05-03-2022 19:15-0400 Systolic blood pressure 109 mm[Hg] RODOLFO PLEITEZ MD [facility] 01-29-2022 10:39-0400 Body height 165.1 cm [facility] Work Phone: 01-29-2022 10:39-0400 Body mass index (BMI) [Ratio] 29.2 kg/m2 [facility] Work Phone: 01-29-2022 10:39-0400 Body temperature 97.6 [degF] [facility] Work Phone: 01-29-2022 10:39-0400 Body weight 79.6 kg [facility] Work Phone: 01-29-2022 10:39-0400 Diastolic blood pressure 60 mm[Hg] [facility] Work Phone: 01-29-2022 10:39-0400 Heart rate 64 /min [facility] Work Phone: 01-29-2022 10:39-0400 Respiratory rate 18 /min [facility] Work Phone: 01-29-2022 10:39-0400 SaO2% (BldA) [Mass fraction] 99 % [facility] Work Phone: 01-29-2022 10:39-0400 Systolic blood pressure 105 mm[Hg] [facility] Work Phone: 11-04-2021 13:16-0500 Body temperature 98.06 [degF] RAFAEL JIM MD [facility] 11-04-2021 13:16-0500 Diastolic blood pressure 82 mm[Hg] RAFAEL JIM MD [facility] 11-04-2021 13:16-0500 Heart rate 98 /min RAFAEL JIM MD [facility] 11-04-2021 13:16-0500 Respiratory rate 20 /min RAFAEL JIM MD [facility] 11-04-2021 13:16-0500 Systolic blood pressure 137 mm[Hg] RAFAEL JIM MD [facility] Encounters Encounter Date Encounter Type Care Provider Facility Start: 03-09-2025 End: 03-09-2025 Office outpatient visit 15 minutes Christos Arroyo [employer] Work Phone: [facility] Comment on above: Injury of finger of right hand, initial encounter (Primary Dx) Start: 03-09-2025 End: 03-09-2025 [facility] Facility:[facility] Start: 11-07-2024 End: 11-07-2024 [facility] Start: 08-17-2024 End: 08-19-2024 Telephone encounter Samantha REAL Work Phone: [facility] Comment on above: Results Start: 08-16-2024 End: 08-16-2024 [facility] Facility:[facility] Start: 08-16-2024 End: 08-16-2024 Office outpatient visit 15 minutes Christos Arroyo [employer] WORK[employer] Work Phone: [facility] Comment on above: Viral illness (Prima ry Dx) Start: 07-26-2024 Encounter for gynecological examination (general) (routine) with abnormal findings Delicia Queen [facility] Start: 07-23-2024 End: 07-24-2024 Telephone encounter Anjelica Suarez [employer] WORK[employer] Work Phone: [facility] Comment on above: Results Start: 07-22-2024 End: 07-22-2024 Telephone encounter Nura Roche MD Work Phone: [facility] Comment on above: Results (BV/Jimena+ ) Start: 07-21-2024 End: 07-21-2024 [facility] Facility:[facility] Start: 07-21-2024 End: 07-21-2024 Patient encounter procedure Delicia Jha [employer] WORK[employer] Work Phone: [facility] Comment on above: Dysuria (Primary Dx) ; Vaginal discharge; Encounter for screening examination for sexually transmitted disease; History of unprotected sex Start: 04-20-2024 End: 04-20-2024 ambulatory No Primary Care Physician Facility:[facility] Start: 09-07-2023 End: 09-07-2023 Patient encounter procedure Delicia Jha APRN.[employer] Work Phone: [facility] Comment on above: Abdominal pain, lowe r (Primary Dx) Start: 12-23-2022 Registered Referred [facility] Start: 12-23-2022 End: 12-23-2022 Emergency department patient visit [facility] Start: 12-22-2022 End: 12-22-2022 Patient encounter procedure Maty Reinoso APRN.[employer] Work Phone: [facility] Comment on above: Drug abuse (HCC) (Pr imary Dx) Start: 05-03-2022 End: 05-03-2022 Emergency department patient visit RODOLFO PLEITEZ MD [facility] Start: 01-29-2022 End: 01-29-2022 Emergency department patient visit [facility] Start: 11-04-2021 End: 11-04-2021 Emergency department patient visit RAFAEL JIM MD [facility] Procedures Date Procedure Procedure Detail Performing Clinician Start: 07-21-2024 UA DIP,URINE HCG (POC) Delicia Jha APRN.[employer] Work Phone: Start: 07-21-2024 Urnls dip stick/tabl et rgnt auto w/o microscopy Delicia Jha APRN.[employer] Work Phone: Start: 03-27-2019 delivery only RAFAEL JIM MD Start: 11-27-2015 delivery only RAFAEL JIM MD section RAFAEL KRUEGER MD SARS-CoV-2 & FLU Ant igen (Rapid) Tonsil and adenoid structure (body structure) RAFAEL JIM MD Plan of Treatment Date Care Activity Detail Author Start: 06-04-2025 Influenza vaccination Influenz a Vaccine (Season Ended) [facility] Start: 06-04-2024 Covid-19 Vaccine ( season) Covid-19 Vaccine ( season) [facility] Start: 06-04-2024 Influenza vaccination Influenza Vacc ine (#1) [facility] Start: 06-04-2023 Influenza vaccination Influenza Vacc ine (#1) [facility] Start: 2022 HPV TESTING HPV TESTING [facility] Start: 10-04-2022 DEPRESSION ASSESSMENT DEPRESSION ASS ESSMENT [facility] Start: 06-04-2022 Influenza vaccination INFLUENZA (#1) [facility] Start: 2013 PAP TESTING PAP TESTING [facility] Start: 2013 Screening for malign ant neoplasm of cervix Cervical Cancer Screening [facility] Start: 12-11-2011 Pneumococcal vaccination Pneumococcal Vaccine (1 of 2 - PCV) [facility] Start: 12-11-2011 Urine microalbumin profile [facility] Start: 2010 Anxiety Screening Anxiety Screening [facility] Start: 2010 Depression Screening Depression Scre ening [facility] Start: 2010 HEPATITIS C SCREENING HEPATITIS C SC REENING [facility] Start: 2010 HIV SCREENING HIV SCREENING [facility] Start: 1998 Pneumococcal vaccination [facility] Start: 06-12-1993 COVID-19 VACCINE (#1) COVID-19 VACCI NE (#1) [facility] Start: 1992 HEPATITIS B (1 of 3 - 3-dose series) HEPATITIS B (1 of 3 - 3-dose series) [facility] Bacteria identified in Urine by Culture URINE CULTURE Microbiology Routine Dysuria Ordered: 07/21/2024 [facility] Work Phone: Comment on above: Ordered: 07/21/2024 BACTERIAL VAGINOSIS NAAT BACTERIAL VAGINOSIS NAAT Lab Routine Vaginal discharge Encounter for screening examination for sexually transmitted disease Ordered: 07/21/2024 [facility] Comment on above: Ordered: 07/21/2024 JIMENA/TRICHOMONAS NAAT JIMENA/TRICHOMONAS NAAT Lab Routine Vaginal discharge Encounter for screening examination for sexually transmitted disease Ordered: 07/21/2024 [facility] Comment on above: Ordered: 07/21/2024 Chlamydia trachomatis+Neisseria gonorrhoeae DNA [Presence] in Unspecified specimen by BO with probe detection GONORRHEA/CHLAMYDIA NAAT Lab Routine Vaginal discharge Encounter for screening examination for sexually transmitted disease Ordered: 07/21/2024 [facility] Comment on above: Ordered: 07/21/2024 COVID & INFLUENZA A/ B & RSV PCR, ROUTINE COVID & INFLUENZA A/B & RSV PCR, ROUTINE Microbiology Routine Viral illness Ordered: 08/16/2024 [facility] Work Phone: Comment on above: Ordered: 08/16/2024 Patient Education [facility] Work Phone: Patient referral [facility] Work Phone: Immunizations Immunization Date Immunization Notes Care Provider Jorge chang 09-12-2003 influenza, seasonal, injectable Delicia Jha [employer] Work Phone: [facility] 09-12-2003 influenza virus vacc ine, unspecified formulation Delicia Jha [employer] Work Phone: [facility] Payers Date Payer Category Payer Self-pay [id number] 2022 Medicaid [id number] 2012 Unknown [id number] Unknown [id number] Unknown [id number] Social History Date Type Detail Facility Start: 02-28-2019 Heavy tobacco smoker (finding) [facility] Start: 1990 Sex Assigned At Female A [facility] Start: 01-29-2022 End: 12-23-2022 Tobacco smoking status NHIS Unknown if ever smoked [facility] Tobacco smoking stat us GAIS Never smoked tobacco [facility] Work Phone: Start: 08-03-2006 End: 03-09-2025 Alcohol intake Not Asked [facility] Start: 1990 Sex Assigned At Not on file [facility] Start: 09-07-2023 [facility] History of tobacco use Cigarette Smoker [facility] Start: 09-07-2023 Tobacco use and exposure Smokeless tobacco non-user [facility] Start: 09-07-2023 End: 03-09-2025 History of Social function [facility] Start: 09-07-2023 End: 03-09-2025 Tobacco use panel [facility] Functional Status Date Assessment Result Facility 05-03-2022 Functional Status Standard Safet y ID band on, Allergy Band on, Call device within reach, Bed in low position, Wheels locked, Upper/Half-Length side-rails up, Phone within reach, Bedside Cart Locked, Visitor at bedside [facility] Mental Status Date Assessment Result Facility 12-23-2022 Cognitive function Level Of Cons ciousness Awake;Alert;Appropriate;Follow s Commands [facility] Work Phone: 05-03-2022 Mental Status Orientation Not oriented to person, Not oriented to place, Not oriented to situation, Forgetful, Follows simple commands [facility] 01-29-2022 Cognitive function Level Of Cons ciousness Awake;Alert;Appropriate;Follow s Commands [facility] Work Phone: Clinical Notes 11-04-2021 to 03-09-2025 Christos Arroyo APRN.[employer] - 03/09/2025 5:46 PM EDTTelephone Encounter - Ashlyn Bell LPN - 08/19/2024 8:52 AM ESTTelephone Encounter - Ashlyn Bell LPN - 08/19/2024 8:52 AM EST Note Date & Type Note Facility 03-09-2025 Note HNO ID: [id number] Author: CHRISTOS ARROYO APRN.JIMMY Service: ? Author Type: Nurse Practitioner Type: Progress Notes Filed: 03/09/2025 18:00 Note Text: [facility] Subjective Isa Tuttle is a 34 year old female. Patient presents with: Derm Problem: R hand thumb nail, lifted while opening a box, x 1 day HPI Nontoxic-appearing 34-year-old female presents urgent care chief complaint left thumb nail injury. Patient states was opening a box when she lifted her thumbnail up. Presents today for evaluation. This happened yesterday. Feeling better today. No other concerns. No numbness tingling. [id number]. Past medical history prescription medications allergies reviewed. No drainage Review of Systems Constitutional: Negative for activity change, diaphoresis, fatigue and fever. Musculoskeletal: Negative for arthralgias, back pain, joint swelling, myalgias, neck pain and neck stiffness. Skin: Negative for pallor, rash and wound. Neurological: Negative for dizziness, seizures, syncope, weakness, light-headedness and numbness. Psychiatric/Behavioral: Negative for confusion. Objective LMP 06/25/2024 (Exact Date) BP 112/78 Pulse 70 Temp 36.4 ?C (97.6 ?F) Resp 18 Wt 119 kg (262 lb 5.6 oz) LMP 03/09/2025 (Exact Date) SpO2 100% Physical Exam Constitutional: Appearance: Normal appearance. She is normal weight. HENT: Head: Normocephalic. Eyes: Conjunctiva/sclera: Conjunctivae normal. Cardiovascular: Rate and Rhythm: Normal rate. Pulmonary: Effort: Pulmonary effort is normal. Musculoskeletal: Cervical back: Normal range of motion. Comments: Slightly loose thumb nail right. No drainage. No evidence of infection. Skin: Findings: No rash. Neurological: General: No focal deficit present. Mental Status: She is alert and oriented to person, place, and time. Mental status is at baseline. {ASSESSMENT/PLAN: 1. Injury of finger of right hand, initial encounter - ICD9: 959.5, ICD10: S69.91XA Diagnosed with finger injury. Mupirocin prescribed. Use dressing. Patient was educated on supportive therapies. Patient will follow up with primary care provider as needed. Patient was instructed to immediately proceed to emergency room for any new, worsening, or symptoms lasting longer than anticipated. The patient's clinical presentation is otherwise unremarkable at this time. Based on exam and clinical finding, the patient is stable for discharge. Plan of care was discussed with patient. Patient verbalizes understanding and agrees to plan of care. This note was generated using [employer] software. It may contain errors in wording, punctuation, or spelling. Christos Arroyo APRN.[employer] History and Record Review Clinical information obtained from an independent historian. History obtained from or confirmed by: parent. External record(s) reviewed: prior outpatient record. Disposition The patient was discharged. OTC Medications were advised: Procedures [facility] 03-09-2025 History of Presen t illness Narrative [facility] Isa Tuttle is a 34 year old female. Patient presents with: Derm Problem: R hand thumb nail, lifted while opening a box, x 1 day HPI Nontoxic-appearing 34-year-old female presents urgent care chief complaint left thumb nail injury. Patient states was opening a box when she lifted her thumbnail up. Presents today for evaluation. This happened yesterday. Feeling better today. No other concerns. No numbness tingling. [id number]. Past medical history prescription medications allergies reviewed. No drainage Review of Systems Constitutional: Negative for activity change, diaphoresis, fatigue and fever. Musculoskeletal: Negative for arthralgias, back pain, joint swelling, myalgias, neck pain and neck stiffness. Skin: Negative for pallor, rash and wound. Neurological: Negative for dizziness, seizures, syncope, weakness, light-headedness and numbness. Psychiatric/Behavioral: Negative for confusion. Objective LMP 06/25/2024 (Exact Date) BP 112/78 Pulse 70 Temp 36.4 C (97.6 F) Resp 18 Wt 119 kg (262 lb 5.6 oz) LMP 03/09/2025 (Exact Date) SpO2 100% Physical Exam Constitutional: Appearance: Normal appearance. She is normal weight. HENT: Head: Normocephalic. Eyes: Conjunctiva/sclera: Conjunctivae normal. Cardiovascular: Rate and Rhythm: Normal rate. Pulmonary: Effort: Pulmonary effort is normal. Musculoskeletal: Cervical back: Normal range of motion. Comments: Slightly loose thumb nail right. No drainage. No evidence of infection. Skin: Findings: No rash. Neurological: General: No focal deficit present. Mental Status: She is alert and oriented to person, place, and time. Mental status is at baseline. {ASSESSMENT/PLAN: 1. Injury of finger of right hand, initial encounter - ICD9: 959.5, ICD10: S69.91XA Diagnosed with finger injury. Mupirocin prescribed. Use dressing. Patient was educated on supportive therapies. Patient will follow up with primary care provider as needed. Patient was instructed to immediately proceed to emergency room for any new, worsening, or symptoms lasting longer than anticipated. The patient's clinical presentation is otherwise unremarkable at this time. Based on exam and clinical finding, the patient is stable for discharge. Plan of care was discussed with patient. Patient verbalizes understanding and agrees to plan of care. This note was generated using [employer] software. It may contain errors in wording, punctuation, or spelling. Christos Arroyo APRN.[employer] History and Record Review Clinical information obtained from an independent historian. History obtained from or confirmed by: parent. External record(s) reviewed: prior outpatient record. Disposition The patient was discharged. OTC Medications were advised: Procedures documented in this encounter [facility] 08-19-2024 Telephone encount er Note Patient given results and verbalized understanding of instructions given. Ashlyn Bell LPN [facility] 08-19-2024 Miscellaneous Notes Formattin g of this note might be different from the original. Patient given results and verbalized understanding of instructions given. Ashlyn Bell LPN Left message for patient to return call. Ashlyn Bell LPN Negative COVID flu RSV documented in this encounter [facility] 08-17-2024 Telephone encount er Note Left message for patient to return call. Ashlyn Bell LPN [facility] 08-17-2024 Telephone encount er Note Negative COVID flu RSV [facility] Work Phone: 08-16-2024 Instructions Christos Arroyo APRN.[employer] - 08/16/2024 4:08 PM EST How to Manage Common Symptoms Associated with COVID for Adults Fever- Fever is a temperature over 100.4 F and can occur when the body is fighting an infection. To help treat a fever: Drink plenty of fluids and stay well hydrated. Eat small amounts of easy to digest food. Rest. Your body needs rest to recover, but getting up and moving around the house frequently is a good idea. You should try to continue doing your normal daily activities (bathing, toileting, grooming, cooking), though you will probably feel tired, and need to rest often. Avoid any heavy activity or exercise, as this will increase your body temperature. Dress in light clothing and stay covered in a light sheet. Keep the room temperature cool. Take a slightly warm (not cold or cool) bath, or apply damp washcloths to the forehead and wrists. Cough- Cough is a common symptom associated with COVID and can be bothersome. To help treat a cough: Stay well hydrated. Try warm water or tea with lemon and/or honey to help soothe the cough. Use a humidifier to add moisture to the air. Try a product with menthol, like a cough drop or a rub for your chest such as Vicks, which can help reduce cough. Try cough drops. Avoid smoking and other strong odors or perfumes. Try breathing exercises to keep your lungs open and clear. Take a big deep breath through your nose and hold for 5 seconds before slowly releasing. Repeat frequently, while you are awake. Congestion- Runny nose or nasal congestion can occur with COVID. Treatment can help relieve symptoms: Try OTC nasal saline spray, or nasal saline rinse to relieve mucus congestion. Nasal strips can help keep nasal passages open, to increase airflow. Elevating your head with an extra pillow in bed can help reduce congestion. Using a humidifier can increase moisture in the air, and make breathing easier. Sore Throat- Another common symptom with COVID, can be managed at home by: Stay well hydrated. Gargle with salt water - mix teaspoon salt with 1 cup of warm water and gargle. This helps to loosen mucus in the back of the throat and may reduce discomfort. Try ice chips, popsicles or lozenges to soothe the throat. Nausea/Vomiting/Diarrhea- These are common symptoms, and staying hydrated is most important. If you are nauseous or vomiting, start with small sips of water every 10-15 minutes and increase as tolerated. You can try sucking an ice cube too. If tolerating, you can try pedialyte or Gatorade, or flat sprite or hardy-regino. Start slowly and increase as you are able to. Instead of meals, try smaller, more frequent snacks. Try eating bland foods like crackers, toast, rice, and applesauce. Avoid spicy, greasy or fried foods and dairy containing foods. Even if you aren't feeling hungry due to lack of smell or taste, it is important to try to take in some food when you are able. After drinking and eating, rest in an upright position for up to two hours as needed to help decrease nauseous feelings. Try closing your eyes, avoid moving and watching TV. Avoid strong odors that can make you feel more nauseated. When to seek emergency medical attention Look for emergency warning signs for COVID-19. If having any of these symptoms, seek emergency medical care immediately: Trouble breathing Persistent pain or pressure in the chest New confusion Inability to wake or stay awake Bluish lips or face *This list is not all possible symptoms. Please call your medical provider for any other symptoms that are severe or concerning to you. documented in this encounter [facility] 08-16-2024 Note HNO ID: [id number] Author: CHRISTOS ARROYO APRN.JIMMY Service: ? Author Type: Nurse Practitioner Type: Progress Notes Filed: 08/16/2024 16:14 Note Text: Subjective HPI Nontoxic-appearing female presents urgent care chief complaint COVID-19 exposure. Patient presents today for testing. States individual in the group house tested positive for COVID-19. Did develop headaches chills. The symptoms started yesterday. OTC medications none. No fever chest pain or shortness of breath. Past medical history prescription medications allergies reviewed. .Patient presents with: Headache: JIMENEZ, chills and COVID exposure History reviewed. No pertinent past medical history. PAST SURGICAL HISTORY Procedure Laterality Date PAST SURGICAL HISTORY OF tonsils ALLERGIES Sulfamethoxazole-Trimethoprim, Cephalexin, Clindamycin, and Loratadine MEDICATIONS QUEtiapine (SEROQUEL) 100 mg tablet Take 100 mg by mouth daily at bedtime. escitalopram oxalate (LEXAPRO) 20 mg tablet Take 20 mg by mouth daily at bedtime. hydrOXYzine pamoate (VISTARIL) 25 mg capsule Take 25 mg by mouth. FAMILY HISTORY Problem Relation Age of Onset Diabetes Mother Coronary Artery Disease Maternal Grandfather Coronary Artery Disease Paternal Grandfather Coronary Artery Disease Father Social History Tobacco Use Smoking status: Every Day Types: Cigarettes Smokeless tobacco: Never BP 102/62 Pulse 71 Temp 36.7 ?C (98.1 ?F) (Tympanic) Resp 16 Wt 120.5 kg (265 lb 10.5 oz) LMP 06/25/2024 (Exact Date) SpO2 96% Review of Systems Constitutional: Positive for chills and malaise/fatigue. Negative for fever. HENT: Negative for congestion, ear discharge, ear pain, sinus pain and sore throat. Eyes: Negative for blurred vision, pain, discharge and redness. Respiratory: Negative for cough, hemoptysis, sputum production, shortness of breath, wheezing and stridor. Cardiovascular: Negative for chest pain. Gastrointestinal: Negative for abdominal pain, diarrhea, nausea and vomiting. Musculoskeletal: Positive for myalgias. Skin: Negative for itching and rash. Neurological: Positive for headaches. Negative for dizziness. Objective Physical Exam Constitutional: General: She is not in acute distress. Appearance: She is not diaphoretic. HENT: Head: Normocephalic. Jaw: No trismus, tenderness, swelling or pain on movement. Mouth/Throat: Mouth: Mucous membranes are moist. Pharynx: Oropharynx is clear. Uvula midline. No pharyngeal swelling, oropharyngeal exudate, posterior oropharyngeal erythema or uvula swelling. Eyes: Conjunctiva/sclera: Conjunctivae normal. Pupils: Pupils are equal, round, and reactive to light. Cardiovascular: Rate and Rhythm: Normal rate and regular rhythm. Heart sounds: Normal heart sounds. Pulmonary: Effort: Pulmonary effort is normal. No tachypnea, accessory muscle usage or respiratory distress. Breath sounds: Normal breath sounds. No stridor. No wheezing, rhonchi or rales. Abdominal: General: There is no distension. Palpations: Abdomen is soft. Tenderness: There is no abdominal tenderness. There is no guarding or rebound. Musculoskeletal: Cervical back: Normal range of motion and neck supple. No edema, erythema, rigidity or tenderness. No pain with movement. Normal range of motion. Lymphadenopathy: Cervical: No cervical adenopathy. Skin: General: Skin is warm and dry. Neurological: Mental Status: She is alert and oriented to person, place, and time. ASSESSMENT/PLAN: 1. Viral illness - ICD9: 079.99, ICD10: B34.9 - Discussed viral etiology and rationale for treatment. - Symptomatic treatment with prn analgesia - Supportive care with fluids and rest - COVID AND INFLUENZA A/B AND RSV PCR, ROUTINE Patient was educated on supportive therapies. Patient will follow up with primary care provider as needed. Patient was instructed to immediately proceed to emergency room for any new, worsening, or symptoms lasting longer than anticipated. The patient's clinical presentation is otherwise unremarkable at this time. Based on exam and clinical finding, the patient is stable for discharge. Plan of care was discussed with patient. Patient verbalizes understanding and agrees to plan of care. This note was generated using [employer] software. It may contain errors in wording, punctuation, or spelling. Christos Arroyo APRN.[facility] 08-16-2024 History of Presen t illness Narrative Subjective HPI Nontoxic-appearing female presents urgent care chief complaint COVID-19 exposure. Patient presents today for testing. States individual in the group house tested positive for COVID-19. Did develop headaches chills. The symptoms started yesterday. OTC medications none. No fever chest pain or shortness of breath. Past medical history prescription medications allergies reviewed. .Patient presents with: Headache: JIMENEZ, chills and COVID exposure History reviewed. No pertinent past medical history. PAST SURGICAL HISTORY Procedure Laterality Date PAST SURGICAL HISTORY OF tonsils ALLERGIES Sulfamethoxazole-Trimethoprim, Cephalexin, Clindamycin, and Loratadine MEDICATIONS QUEtiapine (SEROQUEL) 100 mg tablet Take 100 mg by mouth daily at bedtime. escitalopram oxalate (LEXAPRO) 20 mg tablet Take 20 mg by mouth daily at bedtime. hydrOXYzine pamoate (VISTARIL) 25 mg capsule Take 25 mg by mouth. FAMILY HISTORY Problem Relation Age of Onset Diabetes Mother Coronary Artery Disease Maternal Grandfather Coronary Artery Disease Paternal Grandfather Coronary Artery Disease Father Social History Tobacco Use Smoking status: Every Day Types: Cigarettes Smokeless tobacco: Never BP 102/62 Pulse 71 Temp 36.7 C (98.1 F) (Tympanic) Resp 16 Wt 120.5 kg (265 lb 10.5 oz) LMP 06/25/2024 (Exact Date) SpO2 96% Review of Systems Constitutional: Positive for chills and malaise/fatigue. Negative for fever. HENT: Negative for congestion, ear discharge, ear pain, sinus pain and sore throat. Eyes: Negative for blurred vision, pain, discharge and redness. Respiratory: Negative for cough, hemoptysis, sputum production, shortness of breath, wheezing and stridor. Cardiovascular: Negative for chest pain. Gastrointestinal: Negative for abdominal pain, diarrhea, nausea and vomiting. Musculoskeletal: Positive for myalgias. Skin: Negative for itching and rash. Neurological: Positive for headaches. Negative for dizziness. Objective Physical Exam Constitutional: General: She is not in acute distress. Appearance: She is not diaphoretic. HENT: Head: Normocephalic. Jaw: No trismus, tenderness, swelling or pain on movement. Mouth/Throat: Mouth: Mucous membranes are moist. Pharynx: Oropharynx is clear. Uvula midline. No pharyngeal swelling, oropharyngeal exudate, posterior oropharyngeal erythema or uvula swelling. Eyes: Conjunctiva/sclera: Conjunctivae normal. Pupils: Pupils are equal, round, and reactive to light. Cardiovascular: Rate and Rhythm: Normal rate and regular rhythm. Heart sounds: Normal heart sounds. Pulmonary: Effort: Pulmonary effort is normal. No tachypnea, accessory muscle usage or respiratory distress. Breath sounds: Normal breath sounds. No stridor. No wheezing, rhonchi or rales. Abdominal: General: There is no distension. Palpations: Abdomen is soft. Tenderness: There is no abdominal tenderness. There is no guarding or rebound. Musculoskeletal: Cervical back: Normal range of motion and neck supple. No edema, erythema, rigidity or tenderness. No pain with movement. Normal range of motion. Lymphadenopathy: Cervical: No cervical adenopathy. Skin: General: Skin is warm and dry. Neurological: Mental Status: She is alert and oriented to person, place, and time. ASSESSMENT/PLAN: 1. Viral illness - ICD9: 079.99, ICD10: B34.9 - Discussed viral etiology and rationale for treatment. - Symptomatic treatment with prn analgesia - Supportive care with fluids and rest - COVID & INFLUENZA A/B & RSV PCR, ROUTINE Patient was educated on supportive therapies. Patient will follow up with primary care provider as needed. Patient was instructed to immediately proceed to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
[2025-05-07 02:14] VITALS: BP 124/78; PULSE 71; RESP 18; TEMP 36.8; O2SAT 100
== END 2025-05-07 02:15 | disposition home or self-care (01) ==
PROVIDERS: Emergency Provider Emergency Medicine; Visit Provider Emergency Medicine
DX: R06.02 Shortness of breath (principal); J20.9 Acute bronchitis, unspecified; R05.9 Cough, unspecified; F17.200 Nicotine dependence, unspecified, uncomplicated
CPT/HCPCS: 71046; 87631; 94640; 99282

== ENCOUNTER → 2025-05-22 | Outpatient (CLI) | payer MEDICAID, SELFPAY ==
[2025-05-22 14:44] LABS: Mucous, Urine 0 SEEN /hpf (<or=2+); Red Blood Cells-Urine 0 SEEN /hpf (0-5)
[2025-05-22 17:59] LABS: HIV Nonreactive (Nonreactive); Syphilis Antibodies Reactive (Nonreactive)
[2025-05-22 18:48] LABS: Color, Urine Yellow (Yellow); Glucose, Dipstick Normal (Normal); Ketone-Dipstick 5 mg/dl (Negative); Leukocyte Esterase-Dipstick Negative /ul (Negative); Nitrite-Dipstick Negative (Negative); Occult Blood-Urine Negative /ul (Negative); Protein-Dipstick 15 mg/dl (Negative); Specific Gravity, Urine 1.020 (1.002-1.030); Urine Bilirubin Dipstick Negative (Negative)
[2025-05-22 19:33] LABS: Squamous Epithelial Cells - UA 0-5 SEEN /hpf (5-10)
[2025-05-26 14:08] LABS: HEPATITIS B SURFACE AG Negative (Negative); Hep C Antibodies Reactive (Non Reactive)
== END | disposition home or self-care (01) ==
LOC: VSLAB 14:41
PROVIDERS: Visit Provider Nurse Practitioner Family
DX: Z11.3 Encounter for screening for infections with a predominantly sexual mode of transmission (principal); R35.0 Frequency of micturition
CPT/HCPCS: 36415; 80074; 81001; 86703; 86780; 87086; 87088; 87491; 87591; 87661

== ENCOUNTER → 2025-07-16 | Outpatient (CLI) | payer MEDICAID, SELFPAY ==
[2025-07-16 17:34] LABS: AST(SGOT) 24 U/L (<=31); Alanine Aminotransfer ALT/SGPT 19 U/L (<=34); Albumin, Serum 4.4 g/dL (3.5-5.0); Alkaline Phosphatase 85 U/L (35-104); Anion Gap 12 (5-15); BUN 12 mg/dL (4-19); BUN/Creat Ratio 18.1 RATIO (10-20); Calcium,Total 9.5 mg/dL (7.6-11.0); Carbon Dioxide 25.2 mmol/L (21.0-32.0); Chloride 103 mmol/L (98-108); Globulin 3.1 g/dL (2.2-4.2); Glucose 80 mg/dL (70-99); Potassium 3.9 mmol/L (3.3-5.1)
[2025-07-16 17:44] LABS: Hepatitis C Antibody REAC (Nonreactive)
[2025-07-17 08:46] LABS: Syphilis Antibodies Reactive (Nonreactive)
== END | disposition home or self-care (01) ==
PROVIDERS: Visit Provider Nurse Practitioner Family
DX: Z86.19 Personal history of other infectious and parasitic diseases (principal); Z13.1 Encounter for screening for diabetes mellitus; R63.5 Abnormal weight gain; A53.9 Syphilis, unspecified; A74.9 Chlamydial infection, unspecified
CPT/HCPCS: 36415; 80053; 83036; 84439; 84443; 86780; 86803; 87491; 87591